=== PATIENT | male | born 1955 | race Two or more races ===

== ENCOUNTER → 2017-05-30 | Outpatient (REF) | payer OTHER | LOC: EDBD → M SFHCPLAZ 15:32 | PROVIDERS: ATTEND Physician Assistant Medical | DX: G62.9 Polyneuropathy, unspecified (principal) ==

== ENCOUNTER → 2017-05-30 | Outpatient (CLI) | payer BC, OTHER ==
--- NOTE | 2017-05-30 19:01 | REP ---
LUMBAR SPINE, FIVE VIEWS: HISTORY: Polyneuropathy. There is no acute fracture or subluxation. The L4-5 and L5-S1 intervertebral discs are decreased in height consistent with disc degeneration. Osteophytes are present throughout the lumbar spine. There is narrowing of the L4-5 and L5-S1 facet joints. A 7 mm calcification is present overlying the left kidney, this may represent nephrolithiasis. IMPRESSION: Degenerative change as described above. Signed by Trevor Hernandez MD 05/31/2017 08:28 A
== END ==
LOC: EDBD 16:39 → M RAD 16:39
PROVIDERS: ATTEND Physician Assistant Medical
DX: G62.9 Polyneuropathy, unspecified (principal); M51.37 Other intervertebral disc degeneration, lumbosacral region; M51.36 Other intervertebral disc degeneration, lumbar region

== ENCOUNTER → 2017-06-06 | Outpatient (REF) | payer OTHER | LOC: M SFHCPLAZ 16:33 | PROVIDERS: ATTEND Family Medicine | DX: Z01.818 Encounter for other preprocedural examination (principal); R35.0 Frequency of micturition; Z53.8 Procedure and treatment not carried out for other reasons ==

== ENCOUNTER → 2017-06-06 | Outpatient (CLI) | payer BC, OTHER ==
[2017-06-06 18:29] LABS: INR 1.03
[2017-06-06 18:34] LABS: ALBUMIN/GLOBULIN RATIO 1.14 (1.00-1.93); ALKALINE PHOSPHATASE 63 U/L (45-117); ALT/SGPT 26 U/L (12-78); ANION GAP 5 MEQ/L (8-16); AST/SGOT 12 U/L (15-37); BILIRUBIN,TOTAL 0.6 MG/DL (0.2-1.0); BLOOD UREA NITROGEN 15 MG/DL (7-18); CALCIUM LEVEL 8.5 MG/DL (8.8-10.2); CARBON DIOXIDE LEVEL 29 MEQ/L (21-32); CHLORIDE LEVEL 108 MEQ/L (98-107); CREATININE FOR GFR 1.21 MG/DL (0.70-1.30); GLOMERULAR FILTRATION RATE > 60.0 (>49); GLUCOSE, FASTING 88 MG/DL (80-110); POTASSIUM SERUM 4.4 MEQ/L (3.5-5.1); SODIUM LEVEL 142 MEQ/L (136-145); TOTAL PROTEIN 7.5 GM/DL (6.4-8.2)
[2017-06-06 18:41] LABS: BASO # 0.1 K/mm3 (0.0-0.2); BASO % 0.9 % (0.0-1.0); EOS # 0.3 K/mm3 (0.0-0.50); EOS % 4.7 % (0.0-3.0); LARGE UNSTAINED CELL # 0.1 K/mm3 (0.0-0.4); LARGE UNSTAINED CELL % 1.3 % (0.0-4.0); LYMPH # 1.5 K/mm3 (1.5-4.5); LYMPH % 20.3 % (24.0-44.0); MEAN CORPUSCULAR HGB CONC 34.5 g/dl (32.0-36.5); MEAN CORPUSCULAR VOLUME 92.8 fl (80.0-96.0); MONO # 0.5 K/mm3 (0.0-0.8); MONO % 7.7 % (0.0-5.0); NEUTROPHILS # 4.4 K/mm3 (1.8-7.7); NEUTROPHILS % 65.1 % (36.0-66.0); PLATELET COUNT, AUTOMATED 182 k/mm3 (150-450); RED CELL DISTRIBUTION WIDTH 12.4 % (11.5-14.5); WHITE BLOOD COUNT 6.8 K/mm3 (4.0-10.0)
== END ==
LOC: M LAB 16:52
PROVIDERS: ATTEND Family Medicine
DX: Z01.818 Encounter for other preprocedural examination (principal); H40.2213 Chronic angle-closure glaucoma, right eye, severe stage; H25.11 Age-related nuclear cataract, right eye; R35.0 Frequency of micturition; Z79.899 Other long term (current) drug therapy

== ENCOUNTER → 2017-07-15 | Outpatient (CLI) | payer BC, OTHER | LOC: M LAB 16:48 | PROVIDERS: ATTEND Physician Assistant Medical | DX: N41.0 Acute prostatitis (principal); Z13.220 Encounter for screening for lipoid disorders | CPT/HCPCS: 36415; 80061; G0103 ==

== ENCOUNTER → 2017-12-02 | Outpatient (CLI) | payer BC, OTHER ==
[2017-12-02 19:00] LABS: ALBUMIN 4.2 GM/DL (3.2-5.2); ALBUMIN/GLOBULIN RATIO 1.27 (1.00-1.93); ALKALINE PHOSPHATASE 73 U/L (45-117); ALT/SGPT 27 U/L (12-78); ANION GAP 5 MEQ/L (8-16); AST/SGOT 15 U/L (7-37); BLOOD UREA NITROGEN 13 MG/DL (7-18); CALCIUM LEVEL 8.4 MG/DL (8.8-10.2); CARBON DIOXIDE LEVEL 31 MEQ/L (21-32); CHLORIDE LEVEL 105 MEQ/L (98-107); CHOLESTEROL LEVEL 245 MG/DL (<200); CHOLESTEROL RISK RATIO 7.424 (<5); CPK CREATINE PHOSPHOKINASE 117 U/L (39-308); CREATININE FOR GFR 1.08 MG/DL (0.70-1.30); GLOMERULAR FILTRATION RATE > 60.0 (>49); GLUCOSE, FASTING 86 MG/DL (70-100); HDL CHOLESTEROL 33 MG/DL (>40); LDL CHOLESTEROL 176.2 MG/DL (<100); NON-HDL-C 212 MG/DL; POTASSIUM SERUM 3.9 MEQ/L (3.5-5.1); PSA SCREENING 1.02 NG/ML (< 4.0); SODIUM LEVEL 141 MEQ/L (136-145); TOTAL PROTEIN 7.5 GM/DL (6.4-8.2); TRIGLYCERIDES LEVEL 179 MG/DL (<150)
== END ==
LOC: M LAB 17:50
DX: L40.9 Psoriasis, unspecified (principal); Z79.899 Other long term (current) drug therapy
CPT/HCPCS: 82550

== ENCOUNTER → 2018-06-02 | Outpatient (REF) | payer OTHER ==
[2018-06-02 17:47] LABS: BASO # 0.1 10^3/uL (0.0-0.2); BASO % 0.7 % (0.0-1.0); EOS # 0.2 10^3/uL (0.0-0.50); EOS % 2.8 % (0.0-3.0); HEMATOCRIT 47.2 % (42.0-52.0); IMMATURE GRANULOCYTE % 0.4 % (0-3.0); LYMPH # 1.5 10^3/uL (1.5-4.5); LYMPH % 22.1 % (24.0-44.0); MEAN CORPUSCULAR HEMOGLOBIN 30.9 pg (27.0-33.0); MEAN CORPUSCULAR HGB CONC 33.9 g/dl (32.0-36.5); MEAN CORPUSCULAR VOLUME 91.3 fl (80.0-96.0); MONO # 0.6 10^3/uL (0.0-0.8); NEUTROPHILS # 4.4 10^3/uL (1.8-7.7); PLATELET COUNT, AUTOMATED 230 10^3/uL (150-450); RED BLOOD COUNT 5.17 10^6/uL (4.30-6.10); RED CELL DISTRIBUTION WIDTH 12.1 % (11.5-14.5); WHITE BLOOD COUNT 6.8 10^3/uL (4.0-10.0)
[2018-06-02 17:49] LABS: ESTIMATED AVERAGE GLUCOSE 123 MG/DL (60-110); HEMOGLOBIN A1c 5.9 %
[2018-06-02 18:33] LABS: ALBUMIN 4.3 GM/DL (3.2-5.2); ALBUMIN/GLOBULIN RATIO 1.19 (1.00-1.93); ALKALINE PHOSPHATASE 80 U/L (45-117); ALT/SGPT 40 U/L (12-78); ANION GAP 10 MEQ/L (8-16); AST/SGOT 16 U/L (7-37); BILIRUBIN,TOTAL 1.3 MG/DL (0.2-1.0); BLOOD UREA NITROGEN 15 MG/DL (7-18); CALCIUM LEVEL 8.6 MG/DL (8.8-10.2); CARBON DIOXIDE LEVEL 25 MEQ/L (21-32); CHLORIDE LEVEL 106 MEQ/L (98-107); CHOLESTEROL LEVEL 237 MG/DL (<200); CHOLESTEROL RISK RATIO 6.405 (<5); CREATININE FOR GFR 1.18 MG/DL (0.70-1.30); GLOMERULAR FILTRATION RATE > 60.0 (>49); GLUCOSE, FASTING 95 MG/DL (70-100); HDL CHOLESTEROL 37 MG/DL (>40); LDL CHOLESTEROL 165.4 MG/DL (<100); NON-HDL-C 200 MG/DL; POTASSIUM SERUM 4.2 MEQ/L (3.5-5.1); PSA SCREENING 1.22 NG/ML (< 4.0); SODIUM LEVEL 141 MEQ/L (136-145); TOTAL PROTEIN 7.9 GM/DL (6.4-8.2); TRIGLYCERIDES LEVEL 173 MG/DL (<150)
== END ==
LOC: M SFHCPLAZ 16:04
DX: E78.2 Mixed hyperlipidemia (principal); B37.9 Candidiasis, unspecified; N40.1 Benign prostatic hyperplasia with lower urinary tract symptoms; E66.3 Overweight

== ENCOUNTER → 2019-03-27 | Outpatient (REF) | payer OTHER ==
[2019-03-27 14:08] LABS: APPEARANCE, URINE CLEAR (CLEAR); BACTERIA, URINE AUTO NEGATIVE (NEGATIVE); BILIRUBIN, URINE AUTO NEGATIVE (NEGATIVE); BLOOD, URINE BLOOD NEGATIVE (NEGATIVE); COLOR, URINE STRAW (YELLOW); GLUCOSE, URINE (UA) AUTO NEGATIVE (NEGATIVE); KETONE, URINE AUTO NEGATIVE (NEGATIVE); LEUKOCYTE ESTERASE, URINE AUTO NEGATIVE (NEGATIVE); NITRITE, URINE AUTO NEGATIVE (NEGATIVE); PROTEIN, URINE AUTO NEGATIVE (NEGATIVE); RBC, URINE AUTO 0 /HPF (0-3); SPECIFIC GRAVITY URINE AUTO 1.002 (1.002-1.035); SQUAMOUS EPITHELIAL CELL UR AU 0 /HPF (0-6); UROBILINOGEN, URINE AUTO 0.2 mg/dL (0.0-2.0); WBC, URINE AUTO 0 /HPF (0-3)
[2019-03-27 15:32] LABS: CHLAMYDIA DNA AMPLIFICATION NEGATIVE (NEGATIVE); GC DNA AMPLIFICATION NEGATIVE (NEGATIVE)
== END ==
LOC: M LAB REF 12:38
PROVIDERS: ATTEND Nurse Practitioner Family
DX: N50.819 Testicular pain, unspecified (principal)

== ENCOUNTER → 2019-06-04 | Outpatient (REF) | payer OTHER | LOC: M SFHCPLAZ 10:29 | PROVIDERS: ATTEND Dermatology | DX: L72.0 Epidermal cyst (principal) ==

== ENCOUNTER → 2019-06-30 | Outpatient (REF) | payer OTHER ==
[2019-06-30 18:18] LABS: APPEARANCE, URINE CLEAR (CLEAR); BACTERIA, URINE AUTO NEGATIVE (NEGATIVE); BILIRUBIN, URINE AUTO NEGATIVE (NEGATIVE); BLOOD, URINE BLOOD NEGATIVE (NEGATIVE); COLOR, URINE YELLOW (YELLOW); GLUCOSE, URINE (UA) AUTO NEGATIVE (NEGATIVE); KETONE, URINE AUTO NEGATIVE (NEGATIVE); LEUKOCYTE ESTERASE, URINE AUTO NEGATIVE (NEGATIVE); MUCUS, URINE SMALL (NEGATIVE); NITRITE, URINE AUTO NEGATIVE (NEGATIVE); PROTEIN, URINE AUTO NEGATIVE (NEGATIVE); RBC, URINE AUTO 3 /HPF (0-3); SPECIFIC GRAVITY URINE AUTO 1.024 (1.002-1.035); SQUAMOUS EPITHELIAL CELL UR AU 0 /HPF (0-6); UROBILINOGEN, URINE AUTO 0.2 mg/dL (0.0-2.0); WBC, URINE AUTO 1 /HPF (0-3)
== END ==
LOC: M SMT 17:08
PROVIDERS: ATTEND Nurse Practitioner Family
DX: R35.0 Frequency of micturition (principal)

== ENCOUNTER → 2019-09-02 | Outpatient (REF) | payer OTHER ==
[2019-09-02 15:27] LABS: RHEUMATOID FACTOR QUANT < 10.0 IU/ML (<15.0)
[2019-09-02 15:36] LABS: TOTAL 25(OH) VITAMIN D 37.4 NG/ML (30.0-100.0); VITAMIN B12 LEVEL 361 PG/ML
[2019-09-02 15:37] LABS: FOLATE 15.2 NG/ML
== END ==
LOC: M LABNEURO 09:13
PROVIDERS: ATTEND Psychiatry & Neurology Neurology
DX: M10.9 Gout, unspecified (principal); G20 Parkinson's disease

== ENCOUNTER 2019-11-11 15:52 | Emergency (ER) | payer BC, OTHER ==
[~2019-11-11] VITALS: Ht 172.7 cm; Wt 85.9 kg
[2019-11-11 15:53] VITALS: BP 136/79
[2019-11-11 17:30] LABS: HEMATOCRIT 47.3 % (42.0-52.0); HEMOGLOBIN 15.9 g/dl (13.5-17.5); MEAN CORPUSCULAR HEMOGLOBIN 31.3 pg (27.0-33.0); MEAN CORPUSCULAR HGB CONC 33.6 g/dl (32.0-36.5); MEAN CORPUSCULAR VOLUME 93.1 fl (80.0-96.0); PLATELET COUNT, AUTOMATED 219 10^3/uL (150-450); RED BLOOD COUNT 5.08 10^6/uL (4.30-6.10); WHITE BLOOD COUNT 7.8 10^3/uL (4.0-10.0)
--- NOTE | 2019-11-11 17:52 | REP ---
Oral ultrasound for right testicular pain: The right testis measures 4.3 x 2.8 x 2.9 cm. Left testis measures 4.1 x 3.0 x 3.1 cm. The testes are normal size. There are no testicular masses or cysts. There are multiple small bilateral epididymal head cysts measuring up to 7 mm on the right and up to 3 mm on the left. There is a 2 mm scrotal wall calcification anteriorly at the mid pole of clinical significance. There is no testicular or epididymal hyperemia with color Doppler assessment. There is vascular flow in both testes. The Doppler resistive index of the parenchymal arteries of the right testis is 0.65 and left testis 0.56. There are dilated venous vessels in the left scrotum compatible with varicocele. No reflux is seen with Valsalva. There are moderate bilateral hydroceles. Impression: Left varicocele. Right scrotal leilani no clinical significance. Bilateral small epididymal head cysts. There are no testicular masses or cysts. There are moderate bilateral hydroceles. There is vascular flow in both testes. Electronically Signed by Jose Redmond MD 11/11/2019 05:44 P
[2019-11-11 18:06] LABS: ALBUMIN 4.3 GM/DL (3.2-5.2); ALT/SGPT 51 U/L (12-78); BILIRUBIN,DIRECT 0.2 MG/DL (0.0-0.2); BILIRUBIN,TOTAL 0.7 MG/DL (0.2-1.0); BLOOD UREA NITROGEN 16 MG/DL (7-18); CALCIUM LEVEL 9.3 MG/DL (8.8-10.2); CARBON DIOXIDE LEVEL 27 MEQ/L (21-32); CHLORIDE LEVEL 106 MEQ/L (98-107); CREATININE FOR GFR 1.22 MG/DL (0.70-1.30); GLOMERULAR FILTRATION RATE > 60.0 (>49); GLUCOSE, FASTING 125 MG/DL (70-100); POTASSIUM SERUM 4.1 MEQ/L (3.5-5.1); SALICYLATE LEVEL < 1.7 MG/DL (5.0-30.0); SODIUM LEVEL 140 MEQ/L (136-145); TOTAL PROTEIN 7.5 GM/DL (6.4-8.2)
[2019-11-11 18:07] LABS: ACETAMINOPHEN LEVEL < 2.0 UG/ML (10.0-30.0); ETHYL ALCOHOL (ETHANOL) < 0.003 % (0.000-0.010)
[2019-11-11 18:17] LABS: AMPHETAMINES LEVEL URINE NEGATIVE (NEGATIVE); BARBITURATES URINE NEGATIVE (NEGATIVE); BENZODIAZEPINES URINE NEGATIVE (NEGATIVE); CANNABINOIDS URINE NEGATIVE (NEGATIVE); COCAINE METABOLITE URINE NEGATIVE (NEGATIVE); METHADONE URINE NEGATIVE (NEGATIVE); OPIATES URINE NEGATIVE (NEGATIVE); PHENCYCLIDINE URINE NEGATIVE (NEGATIVE)
--- NOTE | 2019-11-12 08:12 | ED PDOC ---
Post-Departure Follow-Up dr dozier faxed formal report of scrotal us for fu Matt Barros MD Nov 12, 2019 08:12
== END 2019-11-11 19:26 | disposition home or self-care (01) ==
LOC: M ED 15:52
DX: G20 Parkinson's disease (principal); F43.20 Adjustment disorder, unspecified; G47.00 Insomnia, unspecified; Z88.8 Allergy status to other drugs, medicaments and biological substances; Z91.010 Allergy to peanuts; Z91.040 Latex allergy status
CPT/HCPCS: 36415; 76870; 80048; 80076; 80307; 84443; 85027; 93976; 99284; G0480

== ENCOUNTER 2019-11-19 11:43 | Emergency (ER) | payer BC, OTHER ==
[~2019-11-19] VITALS: Ht 172.7 cm; Wt 84.2 kg
[2019-11-19] MEDS ORDERED: CARB25TA9 PR (11:59)
[2019-11-19] MEDS ORDERED: QUET1TAB7 OR (11:59)
[2019-11-19] MEDS ORDERED: ACETAMINOPHEN 325 MG TAB PO ONE (12:30)
[2019-11-19] MEDS ORDERED: IPRATROPIUM 0.5MG/ALBUTEROL 2.5MG INH SOL UD 3ML (DUONEB)(J7620) NEB ONE (12:30)
[2019-11-19 12:58] LABS: VENOUS O2 SATURATION 98.5 % (60.0-80.0)
[2019-11-19 12:59] LABS: VENOUS HCO3 24.1 MEQ/L (23.0-27.0); VENOUS PARTIAL PRESSURE CO2 37.5 mmHg (38.0-50.0); VENOUS PARTIAL PRESSURE O2 119.2 mmHg (30.0-50.0); VENOUS PH 7.425 UNITS (7.330-7.430); VENOUS STANDARD HCO3 24.5 MEQ/L; VENOUS TOTAL CO2 25.2 MEQ/L (24.0-28.0)
[2019-11-19 13:10] LABS: BASO # 0.1 10^3/uL (0.0-0.2); BASO % 0.8 % (0.0-1.0); EOS # 0.2 10^3/uL (0.0-0.5); EOS % 2.5 % (0.0-3.0); HEMATOCRIT 46.5 % (42.0-52.0); HEMOGLOBIN 15.6 g/dl (13.5-17.5); LYMPH # 1.2 10^3/uL (1.5-5.0); LYMPH % 15.8 % (24.0-44.0); MEAN CORPUSCULAR HEMOGLOBIN 30.6 pg (27.0-33.0); MEAN CORPUSCULAR HGB CONC 33.5 g/dl (32.0-36.5); MEAN CORPUSCULAR VOLUME 91.2 fl (80.0-96.0); MONO # 0.6 10^3/uL (0.0-0.8); MONO % 8.4 % (0.0-5.0); NEUTROPHILS # 5.4 10^3/uL (1.5-8.5); PLATELET COUNT, AUTOMATED 206 10^3/uL (150-450); WHITE BLOOD COUNT 7.5 10^3/uL (4.0-10.0)
[2019-11-19 13:33] LABS: ALBUMIN 4.2 GM/DL (3.2-5.2); ALT/SGPT 15 U/L (12-78); BILIRUBIN,DIRECT 0.3 MG/DL (0.0-0.2); BILIRUBIN,TOTAL 1.1 MG/DL (0.2-1.0); BLOOD UREA NITROGEN 11 MG/DL (7-18); CALCIUM LEVEL 8.9 MG/DL (8.8-10.2); CARBON DIOXIDE LEVEL 27 MEQ/L (21-32); CHLORIDE LEVEL 107 MEQ/L (98-107); CK-MB VALUE MASS 5.6 NG/ML (<3.6); CPK CREATINE PHOSPHOKINASE 395 U/L (39-308); CREATININE FOR GFR 1.04 MG/DL (0.70-1.30); GLOMERULAR FILTRATION RATE > 60.0 (>49); GLUCOSE, FASTING 120 MG/DL (70-100); MB/CK RELATIVE INDEX 1.42 (< OR =4); POTASSIUM SERUM 4.1 MEQ/L (3.5-5.1); SODIUM LEVEL 140 MEQ/L (136-145); TOTAL PROTEIN 7.3 GM/DL (6.4-8.2); TROPONIN I < 0.02 NG/ML (< 0.10)
[2019-11-19 13:45] LABS: INFLUENZA A AMPLIFICATION NEGATIVE (NEGATIVE); INFLUENZA B AMPLIFICATION NEGATIVE (NEGATIVE)
--- NOTE | 2019-11-19 13:45 | REP ---
PA and lateral chest: There are no comparisons. The lung carbajal are clear. The cardiac size is normal. The kristan, mediastinum, and skeletal structures are unremarkable. Impression: Negative PA and lateral chest. Electronically Signed by Jose Redmond MD 11/19/2019 01:36 P
[2019-11-19 14:40] VITALS: BP 124/74
--- NOTE | 2019-11-20 13:18 | ECGEPIP ---
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
== END 2019-11-19 14:42 | disposition home or self-care (01) ==
LOC: M ED 11:43 → EDBD 11:43 → M ED 14:42
DX: F33.9 Major depressive disorder, recurrent, unspecified (principal); I10 Essential (primary) hypertension; G20 Parkinson's disease; Z79.899 Other long term (current) drug therapy; Z91.010 Allergy to peanuts; Z91.040 Latex allergy status; Z88.8 Allergy status to other drugs, medicaments and biological substances

== ENCOUNTER 2019-11-24 02:47 | Emergency (ER) | payer BC, OTHER ==
[~2019-11-24] VITALS: Ht 172.7 cm; Wt 81.8 kg
[~2019-11-24 02:47] MED LIST: CARB25TA9 PR; QUET1TAB7 OR
[2019-11-24 02:55] VITALS: BP 136/86
[2019-11-24 05:24] LABS: BASO # 0.1 10^3/uL (0.0-0.2); BASO % 0.8 % (0.0-1.0); EOS # 0.2 10^3/uL (0.0-0.5); EOS % 2.1 % (0.0-3.0); HEMATOCRIT 46.9 % (42.0-52.0); HEMOGLOBIN 15.6 g/dl (13.5-17.5); LYMPH # 1.5 10^3/uL (1.5-5.0); LYMPH % 19.4 % (24.0-44.0); MEAN CORPUSCULAR HEMOGLOBIN 30.6 pg (27.0-33.0); MEAN CORPUSCULAR HGB CONC 33.3 g/dl (32.0-36.5); MEAN CORPUSCULAR VOLUME 92.1 fl (80.0-96.0); MONO # 0.9 10^3/uL (0.0-0.8); MONO % 11.6 % (0.0-5.0); NEUTROPHILS # 5.1 10^3/uL (1.5-8.5); NEUTROPHILS % 65.7 % (36.0-66.0); PLATELET COUNT, AUTOMATED 204 10^3/uL (150-450); RED BLOOD COUNT 5.09 10^6/uL (4.30-6.10); WHITE BLOOD COUNT 7.8 10^3/uL (4.0-10.0)
[2019-11-24 05:45] LABS: ALBUMIN 4.3 GM/DL (3.2-5.2); ALT/SGPT 51 U/L (12-78); BILIRUBIN,DIRECT 0.3 MG/DL (0.0-0.2); BILIRUBIN,TOTAL 1.2 MG/DL (0.2-1.0); BLOOD UREA NITROGEN 13 MG/DL (7-18); CALCIUM LEVEL 8.7 MG/DL (8.8-10.2); CARBON DIOXIDE LEVEL 26 MEQ/L (21-32); CHLORIDE LEVEL 107 MEQ/L (98-107); CREATININE FOR GFR 1.07 MG/DL (0.70-1.30); GLOMERULAR FILTRATION RATE > 60.0 (>49); GLUCOSE, FASTING 103 MG/DL (70-100); LIPASE 219 U/L (73-393); POTASSIUM SERUM 3.9 MEQ/L (3.5-5.1); SODIUM LEVEL 142 MEQ/L (136-145); TOTAL PROTEIN 7.4 GM/DL (6.4-8.2)
== END 2019-11-24 06:06 | disposition left against medical advice (07) ==
LOC: M ED 02:47
DX: N50.811 Right testicular pain (principal); R10.31 Right lower quadrant pain; E78.5 Hyperlipidemia, unspecified; G20 Parkinson's disease; J30.2 Other seasonal allergic rhinitis; N40.0 Benign prostatic hyperplasia without lower urinary tract symptoms; Z79.899 Other long term (current) drug therapy; Z88.8 Allergy status to other drugs, medicaments and biological substances; Z91.010 Allergy to peanuts; Z91.040 Latex allergy status

== ENCOUNTER 2019-12-28 17:57 | Inpatient (IN) | payer BC, OTHER ==
[~2019-12-28] VITALS: Ht 172.7 cm; Wt 81.8 kg
[~2019-12-28 17:57] MED LIST changes: +CARB25TA9 PO; -CARB25TA9 PR; -QUET1TAB7 OR; +QUET1TAB7 PO
[2019-12-28 18:50] LABS: BASO # 0.1 10^3/uL (0.0-0.2); BASO % 0.9 % (0.0-1.0); EOS # 0.2 10^3/uL (0.0-0.5); EOS % 2.2 % (0.0-3.0); HEMATOCRIT 42.6 % (42.0-52.0); HEMOGLOBIN 14.2 g/dl (13.5-17.5); LYMPH # 1.2 10^3/uL (1.5-5.0); LYMPH % 17.6 % (24.0-44.0); MEAN CORPUSCULAR HEMOGLOBIN 30.7 pg (27.0-33.0); MEAN CORPUSCULAR HGB CONC 33.3 g/dl (32.0-36.5); MEAN CORPUSCULAR VOLUME 92.2 fl (80.0-96.0); MONO # 0.8 10^3/uL (0.0-0.8); MONO % 11.5 % (0.0-5.0); NEUTROPHILS # 4.6 10^3/uL (1.5-8.5); NEUTROPHILS % 67.5 % (36.0-66.0); PLATELET COUNT, AUTOMATED 220 10^3/uL (150-450); RED BLOOD COUNT 4.62 10^6/uL (4.30-6.10); WHITE BLOOD COUNT 6.9 10^3/uL (4.0-10.0)
[2019-12-28 18:56] LABS: AMPHETAMINES LEVEL URINE NEGATIVE (NEGATIVE); BARBITURATES URINE NEGATIVE (NEGATIVE); BENZODIAZEPINES URINE NEGATIVE (NEGATIVE); CANNABINOIDS URINE NEGATIVE (NEGATIVE); COCAINE METABOLITE URINE NEGATIVE (NEGATIVE); METHADONE URINE NEGATIVE (NEGATIVE); OPIATES URINE NEGATIVE (NEGATIVE); PHENCYCLIDINE URINE NEGATIVE (NEGATIVE)
[2019-12-28 19:30] LABS: ACETAMINOPHEN LEVEL < 2.0 UG/ML (10.0-30.0); ALBUMIN 3.8 GM/DL (3.2-5.2); ALT/SGPT 41 U/L (12-78); BILIRUBIN,DIRECT 0.3 MG/DL (0.0-0.2); BILIRUBIN,TOTAL 0.8 MG/DL (0.2-1.0); BLOOD UREA NITROGEN 18 MG/DL (7-18); CALCIUM LEVEL 8.8 MG/DL (8.8-10.2); CARBON DIOXIDE LEVEL 27 MEQ/L (21-32); CHLORIDE LEVEL 111 MEQ/L (98-107); CK-MB VALUE MASS 18.5 NG/ML (<3.6); CPK CREATINE PHOSPHOKINASE 929 U/L (39-308); CREATININE FOR GFR 1.07 MG/DL (0.70-1.30); ETHYL ALCOHOL (ETHANOL) < 0.003 % (0.000-0.010); GLOMERULAR FILTRATION RATE > 60.0 (>49); GLUCOSE, FASTING 116 MG/DL (70-100); MB/CK RELATIVE INDEX 1.99 (< OR =4); POTASSIUM SERUM 4.1 MEQ/L (3.5-5.1); SALICYLATE LEVEL < 1.7 MG/DL (5.0-30.0); SODIUM LEVEL 143 MEQ/L (136-145); TOTAL PROTEIN 6.7 GM/DL (6.4-8.2); TROPONIN I < 0.02 NG/ML (< 0.10)
[2019-12-28] MEDS ORDERED: QUEtiapine FUMARATE 50 MG TAB PO ONE (20:00)
--- NOTE | 2019-12-28 20:44 | ECGEPIP ---
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
[2019-12-28] MEDS ORDERED: diphenhydrAMINE INJ 50MG/ML VIAL (J1200) IM STA (22:21)
[2019-12-28] MEDS ORDERED: chlorproMAZINE INJ 50MG/2ML AMP (J3230) IM STA (22:21)
[2019-12-29] MEDS ORDERED: CARB25TA9 PO (00:12)
--- NOTE | 2019-12-29 00:44 | REPVR ---
PROCEDURE INFORMATION: Exam: CT Head Without Contrast Exam date and time: 12/28/2019 7:57 PM Age: 64 years old Clinical indication: Condition or disease; Other: Parkinsons; Additional info: Ams/psych eval TECHNIQUE: Imaging protocol: Computed tomography of the head without contrast. Axial and coronal reformatted images were created and reviewed. Radiation optimization: All CT scans at this facility use at least one of these dose optimization techniques: automated exposure control; mA and/or kV adjustment per patient size (includes targeted exams where dose is matched to clinical indication); or iterative reconstruction. COMPARISON: No relevant prior studies available. FINDINGS: Brain: No CT evidence of acute intracranial hemorrhage or acute territorial infarction. No significant mass effect or midline shift. Basal cisterns patent. Ventricles: Prominence of the cortical sulci, cisterns and ventricular system, consistent with cerebral and cerebellar volume loss. Bones/joints: No acute osseous abnormality. Sinuses: Minimal ethmoid mucosal thickening. Mastoid air cells: Grossly unremarkable. Soft tissues: Grossly unremarkable. IMPRESSION: 1. No CT evidence of acute intracranial pathology. 2. Additional findings, as above. Electronically signed by: Tom Her On 12/29/2019 00:44:19 AM
[2019-12-29] MEDS ORDERED: ACETAMINOPHEN TAB 650MG DOSE (2X325MG) PO PRN (02:15)
[2019-12-29] MEDS ORDERED: QUEtiapine FUMARATE 25 MG TAB PO PRN (02:15)
[2019-12-29] MEDS ORDERED: MOM 30ML SUSPENSION UDC PO PRN (02:15)
[2019-12-29] MEDS ORDERED: traZODone 50 MG TAB PO PRN (02:15)
[2019-12-29] MEDS ORDERED: MAALOX 30 ML SUSP *UDC PO PRN (02:15)
[2019-12-29 06:11] VITALS: BP 136/83
[2019-12-29] MEDS ORDERED: SINEMET 25-100 MG TAB PO SCH (09:00)
--- NOTE | 2019-12-29 10:46 | MHHPEPDOC ---
[facility] History & Physical History and Physical DATE OF ADMISSION: Dec 29, 2019 at 02:14 New Patient Panda Brito MRN: N/A Date of : N/A Date of Service: 12/29/2019 Chief Complaint "I don't know." History of Present Illness The patient, a 64-year-old man with a reported history of Parkinson's disorder presents to [facility] for altered mental status, during the evaluation it is noted that he is behaving usually and he is brought in for ev aluation. During the evaluation, he was noted to be reporting depression and suicidal thoughts, but had been acting fairly bizarre. When I attempted to meet with the patient, he was fairly bizarre, spoke in a very soft voice and was unable to be understood. He appeared to be fairly psychotic and I was unable to gain any meaningful information out of him during the evaluation. Review Of Systems Unable to obtain due to patient's mental status. Past Psychiatric History Reportedly has a neurologist that prescribed some psychiatric meds. No history of inpatient admissions or suicide attempts. Allergies Please see below. Family Psychiatric History Unknown. Social History Patient reportedly lives alone at this time. He reportedly has a girlfriend that comes to see him from [id number]. Substance Abuse History Unclear at this time. Medical History Has a history of Parkinson's disorder. Mental Status Examination General: Poor hygiene. Speech: Very soft spoken. Thought processes: Tangentia. MSK: Shuffling gait. Thought content: Bizarre. Abstract reasoning, and computation: Impaired. Description of associations: Impaired. Description of abnormal or psychotic thoughts: Admits to some suicidal ideation. Judgment: Impaired. Insight: Impaired. Orientation: Alert and orientated to surrounding. Cognition: Grossly normal Recent and remote memory: Intact Attention span and concentration: Intact Fund of knowledge: Adequate Mood: "I have to tell the truth." Affect: Flat and bizarre. Diagnoses Unspecified psychotic disorder. Parkinson's disorder. Assessment and Plan Unspecified psychotic disorder: Changed Seroquel to 75 mg scheduled rather than PRN, will likely further evaluate to determine a Parkinson related psychosis. Parkinson's disorder: We'll continue carbidopa/levodopa, however could be causing psychosis. We'll consider having neurology involved. Disposition Patient will need a further inpatient admission due to a severely impairing psychosis. Problem List 1. Altered thoughts. 2. Risk for suicide. Initial Treatment Plan 1. Patient was admitted on a 9.39 legal status. 2. Complete history was obtained. 3. With patients permission, family will be contacted and database will be expanded. 4. Patients medication regimen will be reviewed and changed accordingly. 5. Patient will be provided with protected environment. 6. Patient will be treated with individual, group, and milieu therapies. 7. Patient will receive supportive psych-education. 8. Discharge planning will commence immediately. 9. Outpatient follow-up treatment will be strongly recommended. 10. The initial treatment plan will focus initially on: Estimated Length Of Stay 5 days. Time Spent 70 minutes with greater than 50% of time spent on counseling/coordination of care. Saturday Vital Signs Vital Signs Date Time Temp Pulse Resp B/P (MAP) Pulse Ox O2 Delivery O2 Flow Rate FiO2 12/29/19 06:11 98.4 75 14 136/83 (100) 99 Room Air Laboratory Data 24H Labs Laboratory Tests 2 12/28/19 18:24: Urine Color YELLOW, Urine Appearance CLEAR, Urine pH 5.0, Urine Specific Gall[place] 1.025, Urine Protein NEGATIVE, Urine Glucose (UA) NEGATIVE, Urine Ketones 1+H, Urine Blood NEGATIVE, Urine Nitrite NEGATIVE, Urine Bilirubin NEGATIVE, Urine Urobilinogen 4.0H, Urine Leukocyte Esterase NEGATIVE, Urine WBC (Auto) 2, Urine RBC (Auto) 5H, Urine Hyaline Casts (Auto) 0, Urine Bacteria (Auto) NEGATIVE, Urine Squamous Epithelial Cells 0, Urine Calcium Oxalate Cryst (Auto) SMALL, Urine Mucus (Auto) SMALL, Urine Sperm (Auto) , Urine Opiates Screen NEGATIVE, Urine Methadone Screen NEGATIVE, Urine Barbiturates Screen NEGATIVE, Urine Phencyclidine Screen NEGATIVE, Urine Amphetamines Screen NEGATIVE, Urine Benzodiazepines Screen NEGATIVE, Urine Cocaine Metabolite Screen NEGATIVE, Urine Cannabinoids Screen NEGATIVE 12/28/19 18:36: Immature Granulocyte % (Auto) 0.3, Neutrophils (%) (Auto) 67.5H, Lymphocytes (%) (Auto) 17.6L, Monocytes (%) (Auto) 11.5H, Eosinophils (%) (Auto) 2.2, Basophils (%) (Auto) 0.9, Neutrophils # (Auto) 4.6, Lymphocytes # (Auto) 1.2L, Monocytes # (Auto) 0.8, Eosinophils # (Auto) 0.2, Basophils # (Auto) 0.1, Nucleated Red Blood Cells % (auto) 0.0, Anion Gap 5L, Glomerular Filtration Rate > 60.0, Calcium Level 8.8, Total Bilirubin 0.8, Direct Bilirubin 0.3H, Aspartate Amino Transf (AST/SGOT) 61H, Alanine Aminotransferase (ALT/SGPT) 41, Alkaline Phosphatase 90, Ammonia < 10, Total Creatine Kinase 929H, Creatine Kinase MB 18.5H, Creatine Kinase MB Relative Index 1.99, Troponin I < 0.02, Total Protein 6.7, Albumin 3.8, Albumin/Globulin Ratio 1.31, Thyroid Stimulating Hormone (TSH) 1.780, Salicylates Level < 1.7L, Acetaminophen Level < 2.0L, Ethyl Alcohol Level < 0.003 CBC/BMP Laboratory Tests 12/28/19 18:36 Medications Scheduled Carbidopa/Levodopa (Carbidopa-Levodopa 25-100 Tab) 1 Each Tablet, 1 TAB PO QID, (Reported) 0800, 1100, 1500, 1900 Scheduled PRN Quetiapine Fumarate (Quetiapine Fumarate) 25 Mg Tablet, 75 MG PO QHS PRN for SLEEP, (Reported) Allergies Coded Allergies: latex (Verified Allergy, Intermediate, swelling, 11/19/19) peanut (Verified Allergy, Intermediate, allergy testing, 11/19/19) hydrocortisone (Verified Adverse Reaction, Mild, redness, 11/19/19) JOEL ALBERTO DO Dec 29, 2019 10:45
[2019-12-29] MEDS: SINEMET 25-100 MG TAB PO SCH ×3 (12:34→21:00)
--- NOTE | 2019-12-29 16:34 | HPEPDOC ---
General Date of Admission Dec 29, 2019 at 02:14 Date of Service: Dec 29, 2019 Chief Complaint The patient is a 64-year-old male admitted with a reason for visit of Unspecified Psychotic Disorder. Source: RN/, EMS notes reviewed Exam Limitations: Clinical conditions (possible dementia, unwilling to cooperate) Timing/Duration: Unsure Associated Symptoms: Unobtainable History of Present Illness Patient is a 64-year-old male who was admitted from [facility] ED to inpatient mental health with a diagnosis of a psychotic disorder. The exam is extremely limited as patient does not want to participate this morning, he seems a little bit fearful. Patient has a past medical history which includes Parkinson disease, reportedly blindness in the left eye. After exam today. I'm wondering if there is some dementia going on secondary to his Parkinson disease. Patient reported some right lower quadrant abdominal pain, he declined to be examined. He also reported some low back pain, I was not able to get any details of the pain from the patient. I have asked him to let nursing know if he would like me to examine him and investigate the source of his pain later. Home Medications Scheduled Carbidopa/Levodopa (Carbidopa-Levodopa 25-100 Tab) 1 Each Tablet, 1 TAB PO QID, (Reported) 0800, 1100, 1500, 1900 Scheduled PRN Quetiapine Fumarate (Quetiapine Fumarate) 25 Mg Tablet, 75 MG PO QHS PRN for SLEEP, (Reported) Allergies Coded Allergies: latex (Verified Allergy, Intermediate, swelling, 11/19/19) peanut (Verified Allergy, Intermediate, allergy testing, 11/19/19) hydrocortisone (Verified Adverse Reaction, Mild, redness, 11/19/19) Past Medical History Medical History Below is obtained from the medical record: Parkinson disease. Blindness in the left eye, secondary to glaucoma (per nursing) History of Hepatitis C. Polyneuropathy. Mixed hyperlipidemia. Gout Surgical History Unobtainable Family History Unobtainable Social History Unobtainable A-FIB/CHADSVASC A-FIB History Current/History of A-Fib/PAF?: No Current PO Anticoag Therapy: No Review of Systems Gastrointestinal: Reports: Abdominal Pain (please see HPI) Musculoskeletal: Reports: Back Pain Psych: Reports: Mood Normal Other systems Very limited due to patient condition Physical Examination General Exam: Positive: No Acute Distress, Other (physical exam is extremely limited due to patient cooperation) Eye Exam: Positive: Conjunctiva & lids normal ENT Exam: Positive: Atraumatic Neck Exam: Positive: Supple; Negative: thyromegaly Chest Exam: Positive: Clear to auscultation, Normal air movement Heart Exam: Positive: Rate Normal, Normal S1, Normal S2; Negative: Gallops, Murmurs, Rubs Telemetry: Positive: No significant arrhythmia Abdomen Exam: Positive: Other (declined exam) Extremity Exam: Negative: Clubbing, Cyanosis, Edema Skin Exam: Positive: Nl turgor and temperature Neuro Exam: Positive: Normal Gait (shuffling gait, poor balance); Negative: Normal Speech (garbled speech) Psych Exam: Positive: Anxiety Vital Signs Vital Signs Date Time Temp Pulse Resp B/P (MAP) Pulse Ox O2 Delivery O2 Flow Rate FiO2 12/29/19 06:11 98.4 75 14 136/83 (100) 99 Room Air Laboratory Data Labs 24H Laboratory Tests 2 12/28/19 18:24: Urine Color YELLOW, Urine Appearance CLEAR, Urine pH 5.0, Urine Specific [place] 1.025, Urine Protein NEGATIVE, Urine Glucose (UA) NEGATIVE, Urine Ketones 1+H, Urine Blood NEGATIVE, Urine Nitrite NEGATIVE, Urine Bilirubin NEGATIVE, Urine Urobilinogen 4.0H, Urine Leukocyte Esterase NEGATIVE, Urine WBC (Auto) 2, Urine RBC (Auto) 5H, Urine Hyaline Casts (Auto) 0, Urine Bacteria (Auto) NEGATIVE, Urine Squamous Epithelial Cells 0, Urine Calcium Oxalate Cryst (Auto) SMALL, Urine Mucus (Auto) SMALL, Urine Sperm (Auto) , Urine Opiates Screen NEGATIVE, Urine Methadone Screen NEGATIVE, Urine Barbiturates Screen NEGATIVE, Urine Phencyclidine Screen NEGATIVE, Urine Amphetamines Screen NEGATIVE, Urine Ezequiel odiazepines Screen NEGATIVE, Urine Cocaine Metabolite Screen NEGATIVE, Urine Cannabinoids Screen NEGATIVE 12/28/19 18:36: Immature Granulocyte % (Auto) 0.3, Neutrophils (%) (Auto) 67.5H, Lymphocytes (%) (Auto) 17.6L, Monocytes (%) (Auto) 11.5H, Eosinophils (%) (Auto) 2.2, Basophils (%) (Auto) 0.9, Neutrophils # (Auto) 4.6, Lymphocytes # (Auto) 1.2L, Monocytes # (Auto) 0.8, Eosinophils # (Auto) 0.2, Basophils # (Auto) 0.1, Nucleated Red Blood Cells % (auto) 0.0, Anion Gap 5L, Glomerular Filtration Rate > 60.0, Calcium Level 8.8, Total Bilirubin 0.8, Direct Bilirubin 0.3H, Aspartate Amino Transf (AST/SGOT) 61H, Alanine Aminotransferase (ALT/SGPT) 41, Alkaline Phosphatase 90, Ammonia < 10, Total Creatine Kinase 929H, Creatine Kinase MB 18.5H, Creatine Kinase MB Relative Index 1.99, Troponin I < 0.02, Total Protein 6.7, Albumin 3.8, Albumin/Globulin Ratio 1.31, Thyroid Stimulating Hormone (TSH) 1.780, Salicylates Level < 1.7L, Acetaminophen Level < 2.0L, Ethyl Alcohol Level < 0.003 CBC/BMP Laboratory Tests 12/28/19 18:36 Assessment/Plan Patient is a 64-year-old male who was admitted from [facility] ED to inpatient mental health with a diagnosis of a psychotic disorder. The exam is extremely limited as patient does not want to participate this morning, he seems a little bit fearful. Patient has a past medical history which includes Parkinson disease, reportedly blindness in the left eye. After exam today. I'm wondering if there is some dementia going on secondary to his Parkinson disease. Patient reported some right lower quadrant abdominal pain, he declined to be examined. He also reported some low back pain, I was not able to get any details of the pain from the patient. I have asked him to let nursing know if he would like me to examine him and investigate the source of his pain later. 10. Has a past medical history which includes Parkinson disease, blindness in the left eye secondary to glaucoma, an unspecified psychotic disorder. #1. Unspecified psychotic disorder. Possibly complicated by dementia secondary to Parkinson disease. Continued management per psychiatry #2. Elevated CK/CKMB - RBCs in the urine Unknown etiology. When he was in the hospital in October. Patient also had elevated CK/CKMB Repeat CK/CK-MB, CBC, CMP, UA Try to reassess the patient again in the morning if he will allow an exam ination Thank you for consulting with us about the care of your patient. We will continue to follow him with you. Plan / VTE VTE Prophylaxis Ordered?: CHRISTOPHER Morris PA-C Dec 29, 2019 16:34
[2019-12-29 17:10] LABS: HEMATOCRIT 40.5 % (42.0-52.0); HEMOGLOBIN 13.7 g/dl (13.5-17.5); MEAN CORPUSCULAR HGB CONC 33.8 g/dl (32.0-36.5); MEAN CORPUSCULAR VOLUME 91.6 fl (80.0-96.0); PLATELET COUNT, AUTOMATED 212 10^3/uL (150-450); RED BLOOD COUNT 4.42 10^6/uL (4.30-6.10); WHITE BLOOD COUNT 5.8 10^3/uL (4.0-10.0)
[2019-12-29 18:05] VITALS: BP 90/56
[2019-12-29 18:06] LABS: ALBUMIN 3.6 GM/DL (3.2-5.2); ALT/SGPT 27 U/L (12-78); BILIRUBIN,TOTAL 0.9 MG/DL (0.2-1.0); BLOOD UREA NITROGEN 16 MG/DL (7-18); CALCIUM LEVEL 8.8 MG/DL (8.8-10.2); CARBON DIOXIDE LEVEL 25 MEQ/L (21-32); CHLORIDE LEVEL 109 MEQ/L (98-107); CK-MB VALUE MASS 13.6 NG/ML (<3.6); CPK CREATINE PHOSPHOKINASE 1107 U/L (39-308); CREATININE FOR GFR 1.11 MG/DL (0.70-1.30); GLOMERULAR FILTRATION RATE > 60.0 (>49); GLUCOSE, FASTING 109 MG/DL (70-100); MB/CK RELATIVE INDEX 1.23 (< OR =4); POTASSIUM SERUM 4.1 MEQ/L (3.5-5.1); SODIUM LEVEL 143 MEQ/L (136-145); TOTAL PROTEIN 6.5 GM/DL (6.4-8.2)
[2019-12-29] MEDS: QUEtiapine FUMARATE 25 MG TAB PO SCH (21:45)
[2019-12-30 06:44] VITALS: BP 116/77
[2019-12-30] MEDS: SINEMET 25-100 MG TAB PO SCH ×4 (08:45→21:00)
[2019-12-30 09:15] LABS: BASO # 0.1 10^3/uL (0.0-0.2); BASO % 0.9 % (0.0-1.0); EOS # 0.1 10^3/uL (0.0-0.5); EOS % 2.4 % (0.0-3.0); LYMPH # 1.1 10^3/uL (1.5-5.0); LYMPH % 19.2 % (24.0-44.0); MONO # 0.6 10^3/uL (0.0-0.8); MONO % 10.8 % (0.0-5.0); NEUTROPHILS # 3.9 10^3/uL (1.5-8.5); NEUTROPHILS % 66.4 % (36.0-66.0)
--- NOTE | 2019-12-30 10:45 | MHIPNPDOC ---
[facility] Progress Note Progress Note Inpatient Progress Note Panda Brito MRN: N/A Date of : N/A Date of Service: 12/30/2019 History of Present Illness The patient, a 64-year-old man with a reported history of Parkinson's disorder presents to [facility] for altered mental status, during the evaluation it is noted that he is behaving usually and he is brought in for evaluation. During the evaluation, he was noted to be reporting depression and suicidal thoughts, but had been acting fairly bizarre. When I attempted to meet with the patient, he was fairly bizarre, spoke in a very soft voice and was unable to be understood. He appeared to be fairly psychotic and I was unable to gain any meaningful information out of him during the evaluation. Interval History The patient is attempted to be met with today. He is still fairly bizarre and speaks in a very soft tone, so much so that he is difficult to understand. Staff report that the patient is still fairly paranoid, he had been put on a one-to-one sitter due to concerns about his ambulation, however, it seemed to make him more paranoid and bizarre. Staff report no major behavioral problems overnight, but the patient is generally isolative to his room and does not attend groups. Review Of Systems Unable to obtain due to mental status. Psychotherapy None on this visit. Vital Signs Reviewed. Mental Status Examination General: Poor hygiene. Speech: Very soft spoken. Thought processes: Tangentia. MSK: Shuffling gait. Thought content: Bizarre. Abstract reasoning, and computation: Impaired. Description of associations: Impaired. Description of abnormal or psychotic thoughts: Denies any suicidal thoughts today. Judgment: Impaired. Insight: Impaired. Orientation: Alert and orientated to surrounding. Cognition: Grossly normal Recent and remote memory: Intact Attention span and concentration: Intact Fund of knowledge: Adequate Mood: "Hello." Affect: Flat and bizarre. Diagnoses Unspecified psychotic disorder. Parkinson's disorder. Assessment and Plan Unspecified psychotic disorder: Add 25 mg of Seroquel in the morning and 75 mg at night. Parkinson's disorder: We'll continue carbidopa/levodopa, however could be causing psychosis. We'll consider having neurology involved. Disposition Patient will need a further inpatient admission to treat his severely impairing psychosis. Time Spent 15 minutes Saturday Vital Signs Vital Signs Date Time Temp Pulse Resp B/P (MAP) Pulse Ox O2 Delivery O2 Flow Rate FiO2 12/30/19 06:44 98.2 84 12 116/77 (90) 12/29/19 06:11 99 Room Air Laboratory Data 24H Labs Laboratory Tests 2 12/29/19 16:53: Immature Granulocyte % (Auto) 0.3, Neutrophils (%) (Auto) 66.4H, Lymphocytes (%) (Auto) 19.2L, Monocytes (%) (Auto) 10.8H, Eosinophils (%) (Auto) 2.4, Basophils (%) (Auto) 0.9, Immature Granulocyte # (Auto) 0.0, Neutrophils # (Auto) 3.9, Lymphocytes # (Auto) 1.1L, Monocytes # (Auto) 0.6, Eosinophils # (Auto) 0.1, Basophils # (Auto) 0.1, Nucleated Red Blood Cells % (auto) 0.0, Anion Gap 9, Glomerular Filtration Rate > 60.0, Calcium Level 8.8, Total Bilirubin 0.9, Aspartate Amino Transf (AST/SGOT) 61H, Alanine Aminotransferase (ALT/SGPT) 27, Alkaline Phosphatase 85, Total Creatine Kinase 1107H, Creatine Kinase MB 13.6H, Creatine Kinase MB Relative Index 1.23, Total Protein 6.5, Albumin 3.6, Albumin/Globulin Ratio 1.24 CBC/BMP Laboratory Tests 12/29/19 16:53 Current Medications Current Medications Medications (Trade) Dose Ordered Sig/[place] Route PRN Reason Start Time Stop Time Status Last Admin Dose Admin Acetaminophen (Tylenol Tab) 650 mg Q6HP PRN PO HEADACHE or DISCOMFORT 12/29/19 02:15 Al Hydrox/Mg Hydrox/Simethicone (Mylanta) 30 ml Q4HP PRN PO HEARTBURN/INDIGESTION 12/29/19 02:15 Artificial Tears (Akwa Tears) 2 drop Q6HP PRN OU DRY EYES 12/29/19 22:00 Carbidopa/Levodopa (Sinemet 25/100) 1 tab QID PO 12/29/19 09:00 12/29/19 11:00 DC Carbidopa/Levodopa (Sinemet 25/100) 1 tab QID PO 12/29/19 13:00 12/30/19 08:45 Chlorpromazine HCl (Thorazine) 25 mg STAT STAT IM 12/28/19 22:21 12/28/19 22:23 DC 12/28/19 23:01 Diphenhydramine HCl (Benadryl) 25 mg STAT STAT IM 12/28/19 22:21 12/28/19 22:23 DC 12/28/19 23:01 Home Med (Med Rec Complete!) ASDIRECTED XX 12/29/19 00:15 12/29/19 00:14 DC Magnesium Hydroxide (Milk Of Magnesia) 30 ml DAILYPRN PRN PO CONSTIPATION 12/29/19 02:15 Quetiapine Fumarate (SEROquel) 75 mg QHS PO 12/29/19 21:45 Quetiapine Fumarate (SEROquel) 75 mg QHS PRN PO SLEEP 12/29/19 02:15 12/29/19 21:33 DC Trazodone HCl (Desyrel) 50 mg QHSP PRN PO INSOMNIA 12/29/19 02:15 Allergies Coded Allergies: latex (Verified Allergy, Intermediate, swelling, 11/19/19) peanut (Verified Allergy, Intermediate, allergy testing, 11/19/19) hydrocortisone (Verified Adverse Reaction, Mild, redness, 11/19/19) JOEL ALBERTO DO Dec 30, 2019 10:45
[2019-12-30 10:50] LABS: PLATELET ESTIMATE NORMAL (NORMAL)
[2019-12-30] MEDS: QUEtiapine FUMARATE 25 MG TAB PO SCH ×2 (13:14→21:00)
[2019-12-30 17:56] VITALS: BP 121/77
[2019-12-31 06:24] VITALS: BP 131/78
[2019-12-31] MEDS: QUEtiapine FUMARATE 25 MG TAB PO SCH (08:15)
[2019-12-31] MEDS: SINEMET 25-100 MG TAB PO SCH ×4 (08:15→21:00)
[2019-12-31] MEDS ORDERED: LORazepam 0.5 MG TAB PO ONE (12:00)
[2019-12-31] MEDS: POLYVINYL ALCOHOL OPHTH SOLN 15 ML(LIQUITEARS) OU PRN (12:14)
--- NOTE | 2019-12-31 12:21 | MHIPNPDOC ---
[facility] Progress Note Progress Note Inpatient Progress Note Panda Brito MRN: N/A Date of : N/A Date of Service: 12/31/2019 History of Present Illness The patient, a 64-year-old man with a reported history of Parkinson's disorder presents to [facility] for altered mental status, during the evaluation it is noted that he is behaving usually and he is brought in for evaluation. During the evaluation, he was noted to be reporting depression and suicidal thoughts, but had been acting fairly bizarre. When I attempted to meet with the patient, he was fairly bizarre, spoke in a yrn y soft voice and was unable to be understood. He appeared to be fairly psychotic and I was unable to gain any meaningful information out of him during the evaluation. Interval History The patient is met with today. He still remains in his room, isolative and attends no groups. He is fairly bizarre and collateral information from his girlfriend reveals that he is fairly psychotic at home. The patient speaks in such soft tones, it is difficult to understand him. He is still tangential and difficult to follow. In interviews attempted, however, little if any meaningful information is extracted. He reports that he feel sedated on the Seroquel. Staff report him to be still bIzarre and difficult to attend to, he reports that he will not use the bathroom because the sink is not next to the toilet. Review Of Systems Unable to determine due to mental status. Psychotherapy None on this visit. Vital Signs Reviewed. Mental Status Examination General: Poor hygiene. Speech: Very soft spoken. Thought processes: Tangentia. MSK: Shuffling gait. Thought content: Bizarre. Abstract reasoning, and computation: Impaired. Description of associations: Impaired. Description of abnormal or psychotic thoughts: Denies any suicidal thoughts today. Judgment: Impaired. Insight: Impaired. Orientation: Alert and orientated to surrounding. Cognition: Abnormal.l Recent and remote memory: Impaired. Attention span and concentration: Impaired. Fund of knowledge: Adequate Mood: "Hello." Affect: Flat and bizarre. Diagnoses Unspecified psychotic disorder. Parkinson's disorder. Assessment and Plan Unspecified psychotic disorder: Discontinue Seroquel, start Abilify 2 mg nightl y. Parkinson's disorder: Continue carbidopa/levodopa, will hold off on neurology for now to see if potentially the Abilify might help. Disposition Patient will need a further inpatient admission due to his severely impairing psychosis, he is gravely disabled and unable to care for himself. Time Spent 15 minutes. Vital Signs Vital Signs Date Time Temp Pulse Resp B/P (MAP) Pulse Ox O2 Delivery O2 Flow Rate FiO2 12/31/19 06:24 98.1 83 18 131/78 (95) 12/29/19 06:11 99 Room Air Laboratory Data 24H Labs Laboratory Tests 2 12/30/19 16:55: Urine Color YELLOW, Urine Appearance CLEAR, Urine pH 6.0, Urine Specific Bradford 1.024, Urine Protein NEGATIVE, Urine Glucose (UA) NEGATIVE, Urine Ketones 1+H, Urine Blood NEGATIVE, Urine Nitrite NEGATIVE, Urine Bilirubin NEGATIVE, Urine Urobilinogen 4.0H, Urine Leukocyte Esterase NEGATIVE, Urine WBC (Auto) 3, Urine RBC (Auto) 2, Urine Hyaline Casts (Auto) 0, Urine Bacteria (Auto) NEGATIVE, Urine Squamous Epithelial Cells 0, Urine Calcium Oxalate Cryst (Auto) SMALL, Urine Mucus (Auto) SMALL, Urine Sperm (Auto) Current Medications Current Medications Medications (Trade) Dose Ordered Sig/Navneet Route PRN Reason Start Time Stop Time Status Last Admin Dose Admin Acetaminophen (Tylenol Tab) 650 mg Q6HP PRN PO HEADACHE or DISCOMFORT 12/29/19 02:15 Al Hydrox/Mg Hydrox/Simethicone (Mylanta) 30 ml Q4HP PRN PO HEARTBURN/INDIGESTION 12/29/19 02:15 Aripiprazole (AbiLIFY) 2 mg QHS PO 12/31/19 21:00 Artificial Tears (Akwa Tears) 2 drop Q6HP PRN OU DRY EYES 12/29/19 22:00 Carbidopa/Levodopa (Sinemet 25/100) 1 tab QID PO 12/29/19 09:00 12/29/19 11:00 DC Carbidopa/Levodopa (Sinemet 25/100) 1 tab QID PO 12/29/19 13:00 12/31/19 08:15 Chlorpromazine HCl (Thorazine) 25 mg STAT STAT IM 12/28/19 22:21 12/28/19 22:23 DC 12/28/19 23:01 Diphenhydramine HCl (Benadryl) 25 mg STAT STAT IM 12/28/19 22:21 12/28/19 22:23 DC 12/28/19 23:01 Home Med (Med Rec Complete!) ASDIRECTED XX 12/29/19 00:15 12/29/19 00:14 DC Magnesium Hydroxide (Milk Of Magnesia) 30 ml DAILYPRN PRN PO CONSTIPATION 12/29/19 02:15 Quetiapine Fumarate (SEROquel) 25 mg DAILY PO 12/30/19 09:00 12/31/19 11:59 DC 12/31/19 08:15 Quetiapine Fumarate (SEROquel) 75 mg QHS PO 12/29/19 21:45 12/31/19 11:59 DC Quetiapine Fumarate (SEROquel) 75 mg QHS PRN PO SLEEP 12/29/19 02:15 12/29/19 21:33 DC Trazodone HCl (Desyrel) 50 mg QHSP PRN PO INSOMNIA 12/29/19 02:15 Allergies Coded Allergies: latex (Verified Allergy, Intermediate, swelling, 11/19/19) peanut (Verified Allergy, Intermediate, allergy testing, 11/19/19) hydrocortisone (Verified Adverse Reaction, Mild, redness, 11/19/19) JOEL ALBERTO DO Dec 31, 2019 12:21
[2019-12-31] MEDS: ARIPiprazole 2 MG TAB PO SCH (21:00)
[2020-01-01 06:40] VITALS: BP 135/76
[2020-01-01] MEDS: SINEMET 25-100 MG TAB PO SCH ×5 (10:04→21:00)
--- NOTE | 2020-01-01 12:42 | MHIPNPDOC ---
[facility] Progress Note Progress Note Inpatient Progress Note Panda Brito MRN: N/A Date of : N/A Date of Service: 01/01/2020 History of Present Illness The patient, a 64-year-old man with a reported history of Parkinson's disorder presents to [facility] for altered mental status, during the evaluation it is noted that he is behaving usually and he is brought in for evaluation. During the evaluation, he was noted to be reporting depression and suicidal thoughts, but had been acting fairly bizarre. When I attempted to meet with the patient, he was fairly bizarre, spoke in a very soft voice and was unable to be understood. He appeared to be fairly psychotic and I was unable to gain any meaningful information out of him during the evaluation. Interval History The patient was attempted to be met with for follow up today. He is still fairly bizarre, laying in bed and only speaking a few words. He has not let his room for the majority of the day, attends no groups and generally per staff report has engaged very little in treatment. He is still unable to provide any meaningful history today. Review Of Systems Unable to obtain due to mental status. Psychotherapy None on this visit. Vital Signs Reviewed. Mental Status Examination General: Poor hygiene. Speech: Very soft spoken. Thought processes: Tangentia. MSK: Shuffling gait. Thought content: Bizarre. Abstract reasoning, and computation: Impaired. Description of associations: Impaired. Description of abnormal or psychotic thoughts: Denies any suicidal thoughts today. Judgment: Impaired. Insight: Impaired. Orientation: Alert and orientated to surrounding. Cognition: Abnormal.l Recent and remote memory: Impaired. Attention span and concentration: Impaired. Fund of knowledge: Adequate Mood: "Hello." Affect: Flat and bizarre. Diagnoses Unspecified psychotic disorder. Parkinson's disorder. Assessment and Plan Unspecified psychotic disorder: Continue Abilify 2 mg nightly. Parkinson's disorder: Continue carbidopa/levodopa, will hold off on neurology for now to see if potentially the Abilify might help. Disposition Patient will need a further inpatient admission due to his severely impairing psychosis, he is gravely disabled and unable to care for himself. Time Spent 15 minutes. Saturday Vital Signs Vital Signs Date Time Temp Pulse Resp B/P (MAP) Pulse Ox O2 Delivery O2 Flow Rate FiO2 01/01/20 06:40 98.3 85 14 135/76 (95) Room Air 12/29/19 06:11 99 Current Medications Current Medications Medications (Trade) Dose Ordered Sig/Navneet Route PRN Reason Start Time Stop Time Status Last Admin Dose Admin Acetaminophen (Tylenol Tab) 650 mg Q6HP PRN PO HEADACHE or DISCOMFORT 12/29/19 02:15 Al Hydrox/Mg Hydrox/Simethicone (Mylanta) 30 ml Q4HP PRN PO HEARTBURN/INDIGESTION 12/29/19 02:15 Aripiprazole (AbiLIFY) 2 mg QHS PO 12/31/19 21:00 Artificial Tears (Akwa Tears) 2 drop Q6HP PRN OU DRY EYES 12/29/19 22:00 12/31/19 12:14 Carbidopa/Levodopa (Sinemet 25/100) 1 tab QID PO 12/29/19 09:00 12/29/19 11:00 DC Carbidopa/Levodopa (Sinemet 25/100) 1 tab QID PO 12/29/19 13:00 01/01/20 10:04 Chlorpromazine HCl (Thorazine) 25 mg STAT STAT IM 12/28/19 22:21 12/28/19 22:23 DC 12/28/19 23:01 Diphenhydramine HCl (Benadryl) 25 mg STAT STAT IM 12/28/19 22:21 12/28/19 22:23 DC 12/28/19 23:01 Home Med (Med Rec Complete!) ASDIRECTED XX 12/29/19 00:15 12/29/19 00:14 DC Magnesium Hydroxide (Milk Of Magnesia) 30 ml DAILYPRN PRN PO CONSTIPATION 12/29/19 02:15 Quetiapine Fumarate (SEROquel) 25 mg DAILY PO 12/30/19 09:00 12/31/19 11:59 DC 12/31/19 08:15 Quetiapine Fumarate (SEROquel) 75 mg QHS PO 12/29/19 21:45 12/31/19 11:59 DC Quetiapine Fumarate (SEROquel) 75 mg QHS PRN PO SLEEP 12/29/19 02:15 12/29/19 21:33 DC Trazodone HCl (Desyrel) 50 mg QHSP PRN PO INSOMNIA 12/29/19 02:15 Allergies Coded Allergies: latex (Verified Allergy, Intermediate, swelling, 11/19/19) peanut (Verified Allergy, Intermediate, allergy testing, 11/19/19) hydrocortisone (Verified Adverse Reaction, Mild, redness, 11/19/19) JOEL ALBERTO DO Jan 01, 2020 12:42
[2020-01-01 16:00] VITALS: BP 104/72
--- NOTE | 2020-01-01 20:02 | IPNPDOC ---
Text Note Date of Service The patient was seen on 12/30/19. NOTE Elevated CK/CKMB Repeat CK/CK-MB, CBC, CMP, UA -Repeat CK/CK-MB stable, no blood in the urine -Patient was showering at the time I went to see him; per his nurse, there are no signs of bruises or swelling on his body. No further complaints of back/abdominal pain. Medicine will sign off at this time. Please re-consult as needed. VS,Fishbone, I+O VS, Fishbone, I+O Vital Signs Date Time Temp Pulse Resp B/P (MAP) Pulse Ox O2 Delivery O2 Flow Rate FiO2 01/01/20 16:00 97.9 76 12 104/72 (83) 01/01/20 06:40 Room Air 12/29/19 06:11 99 CHRISTOPHER ASHFORD PA-C Jan 01, 2020 20:02
[2020-01-01] MEDS: ARIPiprazole 2 MG TAB PO SCH (21:00)
[2020-01-02 06:52] VITALS: BP 117/77
[2020-01-02] MEDS: SINEMET 25-100 MG TAB PO SCH ×4 (08:56→20:38)
[2020-01-02 17:50] VITALS: BP 93/61
[2020-01-02] MEDS: ARIPiprazole 2 MG TAB PO SCH (20:39)
[2020-01-03 06:22] VITALS: BP 116/64
[2020-01-03] MEDS: SINEMET 25-100 MG TAB PO SCH ×5 (09:00→20:41)
[2020-01-03 15:00] VITALS: BP 110/64
[2020-01-03] MEDS: ARIPiprazole 2 MG TAB PO SCH (20:41)
[2020-01-04 06:11] VITALS: BP 103/77
[2020-01-04] MEDS ORDERED: BENZTROPINE 0.5 MG TAB PO SCH (09:30)
--- NOTE | 2020-01-04 09:32 | MHIPNPDOC ---
[facility] Progress Note Progress Note Inpatient Progress Note Panda Brito MRN: N/A Date of : N/A Date of Service: 01/04/2020 History of Present Illness The patient, a 64-year-old man with a reported history of Parkinson's disorder presents to [facility] for altered mental status, during the evaluation it is noted that he is behaving usually and he is brought in for evaluation. During the evaluation, he was noted to be reporting depression and suicidal thoughts, but had been acting fairly bizarre. When I attempted to meet with the patient, he was fairly bizarre, spoke in a very soft voice and was unable to be understood. He appeared to be fairly psychotic and I was unable to gain any meaningful information out of him during the evaluation. Interval History The patient was attempted to be met with today. However, he still speaks so softly and is nearly incomprehensible. The patient has had a fever over the weekend and has a CK elevation that is dropping off. The patient has made little progress on the Abilify, generally is isolative to his room and generally refuses to engage in ADLs. Review Of Systems Unable to obtain due to mental status. Psychotherapy None on this visit. Vital Signs Reviewed. Mental Status Examination General: Poor hygiene. Speech: Very soft spoken. Thought processes: Tangential. MSK: Shuffling gait. Thought content: Bizarre. Abstract reasoning, and computation: Impaired. Description of associations: Impaired. Description of abnormal or psychotic thoughts: Denies any suicidal thoughts today. Judgment: Impaired. Insight: Impaired. Orientation: Alert and orientated to surrounding. Cognition: Abnormal.l Recent and remote memory: Impaired. Attention span and concentration: Impaired. Fund of knowledge: Adequate Mood: "Hello." Affect: Flat and bizarre. Diagnoses Unspecified psychotic disorder. Parkinson's disorder. Assessment and Plan Unspecified psychotic disorder: Discontinue Abilify as possibly could be creating CK elevation, will examine the potential of MDD with psychosis, potentially a antidepressant could be indicated. Parkinson's disorder: Neuro consulted, recommended resuming the patient's home Sinemet with a 15 mg extended release at night. We will order additional CK to trend down. We will monitor for fever. Disposition The patient will need continued admission as he is still highly impaired, attends no ADLs and is so depressed/psychotic that he is unable to function. Time Spent 15 minutes. Saturday Vital Signs Vital Signs Date Time Temp Pulse Resp B/P (MAP) Pulse Ox O2 Delivery O2 Flow Rate FiO2 01/04/20 06:11 98.6 81 14 103/77 (86) 01/03/20 15:00 98 Room Air Current Medications Current Medications Medications (Trade) Dose Ordered Sig/Navneet Route PRN Reason Start Time Stop Time Status Last Admin Dose Admin Acetaminophen (Tylenol Tab) 650 mg Q6HP PRN PO HEADACHE or DISCOMFORT 12/29/19 02:15 Al Hydrox/Mg Hydrox/Simethicone (Mylanta) 30 ml Q4HP PRN PO HEARTBURN/INDIGESTION 12/29/19 02:15 Aripiprazole (AbiLIFY) 2 mg QHS PO 12/31/19 21:00 Artificial Tears (Akwa Tears) 2 drop Q6HP PRN OU DRY EYES 12/29/19 22:00 12/31/19 12:14 Benztropine Mesylate (Cogentin) 0.25 mg TIDP PO 01/04/20 09:30 UNV Carbidopa/Levodopa (Sinemet 25/100) 1 tab QID PO 12/29/19 09:00 12/29/19 11:00 DC Carbidopa/Levodopa (Sinemet 25/100) 1 tab QID PO 12/29/19 13:00 01/03/20 17:34 Chlorpromazine HCl (Thorazine) 25 mg STAT STAT IM 12/28/19 22:21 12/28/19 22:23 DC 12/28/19 23:01 Diphenhydramine HCl (Benadryl) 25 mg STAT STAT IM 12/28/19 22:21 12/28/19 22:23 DC 12/28/19 23:01 Home Med (Med Rec Complete!) ASDIRECTED XX 12/29/19 00:15 12/29/19 00:14 DC Magnesium Hydroxide (Milk Of Magnesia) 30 ml DAILYPRN PRN PO CONSTIPATION 12/29/19 02:15 Quetiapine Fumarate (SEROquel) 25 mg DAILY PO 12/30/19 09:00 12/31/19 11:59 DC 12/31/19 08:15 Quetiapine Fumarate (SEROquel) 75 mg QHS PO 12/29/19 21:45 12/31/19 11:59 DC Quetiapine Fumarate (SEROquel) 75 mg QHS PRN PO SLEEP 12/29/19 02:15 12/29/19 21:33 DC Trazodone HCl (Desyrel) 50 mg QHSP PRN PO INSOMNIA 12/29/19 02:15 Allergies Coded Allergies: latex (Verified Allergy, Intermediate, swelling, 11/19/19) peanut (Verified Allergy, Intermediate, allergy testing, 11/19/19) hydrocortisone (Verified Adverse Reaction, Mild, redness, 11/19/19) JOEL ALBERTO DO Jan 04, 2020 09:32
[2020-01-04] MEDS ORDERED: PILL CUTTER 1 EACH XX PRN (09:45)
[2020-01-04] MEDS: SINEMET 25-100 MG TAB PO SCH ×4 (10:15→20:19)
[2020-01-04 16:00] VITALS: BP 97/67
[2020-01-04] MEDS: SINEMET**CR** 25/100 TABCR PO SCH (20:19)
[2020-01-04] MEDS ORDERED: IBUPROFEN 400 MG TAB PO ONE (21:30)
[2020-01-05 06:30] VITALS: BP 124/59
--- NOTE | 2020-01-05 09:47 | MHIPNPDOC ---
[facility] Progress Note Progress Note Inpatient Progress Note Panda Brito MRN: N/A Date of : N/A Date of Service: 01/05/2020 History of Present Illness The patient, a 64-year-old man with a reported history of Parkinson's disorder presents to [facility] for altered mental status, during the evaluation it is noted that he is behaving usually and he is brought in for evaluation. During the evaluation, he was noted to be reporting depression and suicidal thoughts, but had been acting fairly bizarre. When I attempted to meet with the patient, he was fairly bizarre, spoke in a very soft voice and was unable to be understood. He appeared to be fairly psychotic and I was unable to gain any meaningful information out of him during the evaluation. Interval History The patient is attempted to me today, however, he still remains fairly soft spoken to the point that he is nearly unable to relate any effective history to me. He has been notably more out of his room with complaints of bizarre pains. He is still quite unusual and refuses to engage in his ADLs. Review Of Systems Unable to obtain due to mental status. Psychotherapy None on this visit. Vital Signs Reviewed. Mental Status Examination General: Poor hygiene. Speech: Very soft spoken. Thought processes: Tangential. MSK: Shuffling gait. Thought content: Bizarre. Abstract reasoning, and computation: Impaired. Description of associations: Impaired. Description of abnormal or psychotic thoughts: Denies any suicidal thoughts today. Judgment: Impaired. Insight: Impaired. Orientation: Alert and orientated to surrounding. Cognition: Abnormal.l Recent and remote memory: Impaired. Attention span and concentration: Impaired. Fund of knowledge: Adequate Mood: "Hello." Affect: Flat and bizarre. Diagnoses Unspecified psychotic disorder. Parkinson's disorder. Assessment and Plan Unspecified psychotic disorder: Appears to resume very heavy depression, will consider starting Effexor once patient's CK comes back. Parkinson's disorder: Neuro consulted, recommend he gets benzos. Disposition The patient will need continued admission as he is still highly impaired, attends no ADLs and is so depressed/psychotic that he is unable to function. Time Spent 15 minutes. Saturday Vital Signs Vital Signs Date Time Temp Pulse Resp B/P (MAP) Pulse Ox O2 Delivery O2 Flow Rate FiO2 01/05/20 06:30 97.8 81 18 124/59 (80) 01/03/20 15:00 98 Room Air Current Medications Current Medications Medications (Trade) Dose Ordered Sig/Navneet Route PRN Reason Start Time Stop Time Status Last Admin Dose Admin Acetaminophen (Tylenol Tab) 650 mg Q6HP PRN PO HEADACHE or DISCOMFORT 12/29/19 02:15 Al Hydrox/Mg Hydrox/Simethicone (Mylanta) 30 ml Q4HP PRN PO HEARTBURN/INDIGESTION 12/29/19 02:15 Aripiprazole (AbiLIFY) 2 mg QHS PO 12/31/19 21:00 01/04/20 11:19 DC Artificial Tears (Akwa Tears) 2 drop Q6HP PRN OU DRY EYES 12/29/19 22:00 12/31/19 12:14 Benztropine Mesylate (Cogentin) 0.25 mg TIDP PO 01/04/20 09:30 Carbidopa/Levodopa (Sinemet 25/100) 1 tab QID PO 12/29/19 09:00 12/29/19 11:00 DC Carbidopa/Levodopa (Sinemet 25/100) 1 tab QID PO 12/29/19 13:00 01/04/20 10:15 Carbidopa/Levodopa (Sinemet Cr 25/ 100) 2 tab QHS PO 01/04/20 21:00 Chlorpromazine HCl (Thorazine) 25 mg STAT STAT IM 12/28/19 22:21 12/28/19 22:23 DC 12/28/19 23:01 Diphenhydramine HCl (Benadryl) 25 mg STAT STAT IM 12/28/19 22:21 12/28/19 22:23 DC 12/28/19 23:01 Home Med (Med Rec Complete!) ASDIRECTED XX 12/29/19 00:15 12/29/19 00:14 DC Magnesium Hydroxide (Milk Of Magnesia) 30 ml DAILYPRN PRN PO CONSTIPATION 12/29/19 02:15 Quetiapine Fumarate (SEROquel) 25 mg DAILY PO 12/30/19 09:00 12/31/19 11:59 DC 12/31/19 08:15 Quetiapine Fumarate (SEROquel) 75 mg QHS PO 12/29/19 21:45 12/31/19 11:59 DC Quetiapine Fumarate (SEROquel) 75 mg QHS PRN PO SLEEP 12/29/19 02:15 12/29/19 21:33 DC Trazodone HCl (Desyrel) 50 mg QHSP PRN PO INSOMNIA 12/29/19 02:15 Allergies Coded Allergies: latex (Verified Allergy, Intermediate, swelling, 11/19/19) peanut (Verified Allergy, Intermediate, allergy testing, 11/19/19) hydrocortisone (Verified Adverse Reaction, Mild, redness, 11/19/19) JOEL ALBERTO DO Jan 05, 2020 09:47
[2020-01-05] MEDS: SINEMET 25-100 MG TAB PO SCH ×4 (09:50→21:00)
--- NOTE | 2020-01-05 10:33 | REP ---
SCROTAL ULTRASOUND: Real-time sonographic evaluation of the scrotum and contents is performed and compared to a prior study of 11/11/2019. The testicles are normal in size and echotexture, right testicle measuring 4.1 x 2.5 x 2.8 cm and left testicle 3.6 x 2.0 x 3.2 cm. There is no testicular mass or torsion. Blood flow is seen in each testicle with duplex Doppler evaluation. There is a 5 mm cyst in the right epididymis. Multiple tiny cystic areas are seen in the left epididymis, measuring up to 3 mm in maximum diameter. Small bilateral hydroceles are present. There is a small left varicocele. IMPRESSION: No testicular mass or torsion. Small cystic areas in each epididymis. Small bilateral hydroceles. Small left varicocele. Electronically Signed by Jose Cooper MD 01/05/2020 11:03 A
[2020-01-05 16:05] VITALS: BP 109/75
--- NOTE | 2020-01-05 16:55 | CR ---
DATE OF CONSULTATION: 01/05/2020 REFERRING PROVIDER: Dr. José Antonio Appiah Panda Brito is a 64-year-old male who was evaluated on 09/02/2019 in neurological consultation in the outpatient neurology clinic. 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 The patient was placed on carbidopa-levodopa; he currently takes 25 mg three times a day and did also take carbidopa-levodopa CR 50/200 mg at bedtime. While at [facility] for an admission for acute psychosis, he was given only the immediate release carbidopa-levodopa. He did receive neuroleptic medications and unfortunately developed rigidity. He came in with psychosis, bizarre behavior and confusion, which seems to be improving. The patient may have underlying Lewy body dementia due to his response to these medications. He does state that cognitively he started to have a decline around the same time he had motor function loss with this condition. The patient has had an MRI of the brain on 09/14/2019, which showed mild generalized cerebral and cerebellar atrophy. Head CT completed at [facility] on 12/28/2019 revealed the same. The patient is noted to have mild rhabdomyolysis with a CPK of 929 which elevated to 1107; however, the medical team did not redraw the body. His troponins were less than 0.02 once and TSH was 1.780. His urinalysis was negative. He has been afebrile. The patient, at this point, due to increased stiffness, rigidity, which seems to be improving after holding antipsychotic medications, will be maintained on his carbidopa-levodopa for now. Benzodiazepines will be avoided. The patient states that clonazepam may not have provided him much benefit for his insomnia. REVIEW OF SYSTEMS: 14-point review of systems obtained and is negative except as per history of the present illness. ALLERGIES: LATEX, PEANUT, HYDROCORTISONE. 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 Denies the use of tobacco, alcohol or illicit drugs. FAMILY HISTORY: Mother with diabetes.. PAST MEDICAL HISTORY: Hyperlipidemia, allergic rhinitis, glaucoma, status post bilateral eye surgery and right eye implant, colonoscopy. PHYSICAL EXAMINATION: Blood pressure is 163/77, respiratory rate is 14, temperature is 98.6 degrees Fahrenheit, pulse rate 81, oxygenation 98% on room air. The patient is awake, oriented to his place, name and date. The patient is able to follow commands. He has poor eye contact. He ambulates through the room he states to collect his thoughts. He ambulates with an antalgic gait leading with the right leg, sliding the left leg forward. He has resting tremor of the upper extremities, left worse than right. The patient has increased tone and cogwheel rigidity in both upper extremities, increased tone in the lower extremities. Masked facies is clearly evident. Gait is unsteady. The patient often is seen ambulating, turning, losing balance but taking a step backwards to catch himself quite regularly. Pupils are not reactive on the right, reactive on the left. He can repeat. Extraocular movements appear to be intact. Tongue is midline. Sensation V1, V2, V3 is intact to light touch. There is no pronator drift. Strength is 5/5 including bilateral deltoids, biceps, triceps, iliopsoas are 5-, quadriceps, anterior tibialis are 5/5. Sensory is intact to light touch in all four extremities. Coordination without any gross ataxia, dysmetria, decreased arm swing noted. ASSESSMENT: Suspected Lewy body dementia versus Parkinson's disease. Gait difficulty with shuffling gait, decreased arm swing, mask-like facies. Poor reaction to antipsychotic therapy with rigidity, improving on Congentin. PLAN: Continue Sinemet 25/100 mg one tablet by mouth four times a day. Continue Sinemet CR 50/200 mg by mouth nightly to be restarted tonight. Continue trazodone 50 mg by mouth nightly as needed for insomnia. Continue supportive psychotropic medication care and psychiatric therapy to be completed as per primary team through inpatient care. The patient will follow up with Dr. Lundy in [facility] as scheduled next month. The patient did no show his last visit. Would avoid benzodiazepine medications at this time.
[2020-01-05] MEDS: SINEMET**CR** 25/100 TABCR PO SCH (21:00)
[2020-01-06 06:29] VITALS: BP 140/88
[2020-01-06] MEDS: SINEMET 25-100 MG TAB PO SCH ×4 (08:50→20:39)
--- NOTE | 2020-01-06 10:51 | MHIPNPDOC ---
[facility] Progress Note Progress Note Inpatient Progress Note Panda Brito MRN: N/A Date of : N/A Date of Service: 01/06/2020 History of Present Illness The patient, a 64-year-old man with a reported history of Parkinson's disorder presents to [facility] for altered mental status, during the evaluation it is noted that he is behaving usually and he is brought in for evaluation. During the evaluation, he was noted to be reporting depression and suicidal thoughts, but had been acting fairly bizarre. When I attempted to meet with the patient, he was fairly bizarre, spoke in a very soft voice and was unable to be understood. He appeared to be fairly psychotic and I was unable to gain any meaningful information out of him during the evaluation. Interval History The patient was met with today, he is still fairly bizarre and unable to engage in any meaningful interview. The patient still wanders around his room aimlessly. When he does speak, he is inconsistent. He does appear to have a lack of engagement in ADLs and other reported depressive symptoms. Neurology has been consulted and recommended against benzodiazepines and reinforced his home medications. The patient has not gone to any groups, has required significant engagement in order to do any ADLs. Review Of Systems Unable to obtain due to mental status. Psychotherapy None on this visit. Vital Signs Reviewed. Mental Status Examination General: Poor hygiene. Speech: Very soft spoken. Thought processes: Tangential. MSK: Shuffling gait. Thought content: Bizarre. Abstract reasoning, and computation: Impaired. Description of associations: Impaired. Description of abnormal or psychotic thoughts: Unable to determine. Judgment: Impaired. Insight: Impaired. Orientation: Alert and orientated to surrounding. Cognition: Abnormal.l Recent and remote memory: Impaired. Attention span and concentration: Impaired. Fund of knowledge: Adequate Mood: "Hello." Affect: Flat and bizarre. Diagnoses Unspecified psychotic disorder. Parkinson's disorder. Assessment and Plan Unspecified psychotic disorder: Start Effexor 37.5 mg daily. Parkinson's disorder: Continue neuro recommendations. Disposition The patient will need continued admission as he is still highly impaired, attends no ADLs and is so depressed/psychotic that he is unable to function. Time Spent 15 minutes. Saturday Vital Signs Vital Signs Date Time Temp Pulse Resp B/P (MAP) Pulse Ox O2 Delivery O2 Flow Rate FiO2 3/18/20 06:29 98.6 81 16 140/88 (105) 01/03/20 15:00 98 Room Air Laboratory Data 24H Labs Laboratory Tests 2 01/06/20 07:00: Urine Color DENNISE, Urine Appearance CLEAR, Urine pH 5.0, Urine Specific [place] 1.021, Urine Protein NEGATIVE, Urine Glucose (UA) NEGATIVE, Urine Ketones TRACEH, Urine Blood NEGATIVE, Urine Nitrite NEGATIVE, Urine Bilirubin NEGATIVE, Urine Urobilinogen 4.0H, Urine Leukocyte Esterase NEGATIVE, Urine WBC (Auto) 1, Urine RBC (Auto) 0, Urine Hyaline Casts (Auto) 0, Urine Bacteria (Auto) NEGATIVE, Urine Squamous Epithelial Cells 0, Urine Calcium Oxalate Cryst (Auto) SMALL, Urine Mucus (Auto) SMALL, Urine Sperm (Auto) Current Medications Current Medications Medications (Trade) Dose Ordered Sig/[place] Route PRN Reason Start Time Stop Time Status Last Admin Dose Admin Acetaminophen (Tylenol Tab) 650 mg Q6HP PRN PO HEADACHE or DISCOMFORT 12/29/19 02:15 Al Hydrox/Mg Hydrox/Simethicone (Mylanta) 30 ml Q4HP PRN PO HEARTBURN/INDIGESTION 12/29/19 02:15 Aripiprazole (AbiLIFY) 2 mg QHS PO 12/31/19 21:00 01/04/20 11:19 DC Artificial Tears (Akwa Tears) 2 drop Q6HP PRN OU DRY EYES 12/29/19 22:00 12/31/19 12:14 Benztropine Mesylate (Cogentin) 0.25 mg TIDP PO 01/04/20 09:30 Carbidopa/Levodopa (Sinemet 25/100) 1 tab QID PO 12/29/19 09:00 12/29/19 11:00 DC Carbidopa/Levodopa (Sinemet 25/100) 1 tab QID PO 12/29/19 13:00 01/06/20 08:50 Carbidopa/Levodopa (Sinemet Cr 25/ 100) 2 tab QHS PO 01/04/20 21:00 Chlorpromazine HCl (Thorazine) 25 mg STAT STAT IM 12/28/19 22:21 12/28/19 22:23 DC 12/28/19 23:01 Diphenhydramine HCl (Benadryl) 25 mg STAT STAT IM 12/28/19 22:21 12/28/19 22:23 DC 12/28/19 23:01 Home Med (Med Rec Complete!) ASDIRECTED XX 12/29/19 00:15 12/29/19 00:14 DC Magnesium Hydroxide (Milk Of Magnesia) 30 ml DAILYPRN PRN PO CONSTIPATION 12/29/19 02:15 Quetiapine Fumarate (SEROquel) 25 mg DAILY PO 12/30/19 09:00 12/31/19 11:59 DC 12/31/19 08:15 Quetiapine Fumarate (SEROquel) 75 mg QHS PO 12/29/19 21:45 12/31/19 11:59 DC Quetiapine Fumarate (SEROquel) 75 mg QHS PRN PO SLEEP 12/29/19 02:15 12/29/19 21:33 DC Trazodone HCl (Desyrel) 50 mg QHSP PRN PO INSOMNIA 12/29/19 02:15 Allergies Coded Allergies: latex (Verified Allergy, Intermediate, swelling, 11/19/19) peanut (Verified Allergy, Intermediate, allergy testing, 11/19/19) hydrocortisone (Verified Adverse Reaction, Mild, redness, 11/19/19) JOEL ALBERTO DO Jan 06, 2020 10:51
[2020-01-06] MEDS ORDERED: VENLAFAXINE **XR** 37.5 MG CAPSULE PO ONE (11:15)
[2020-01-06 16:06] VITALS: BP 98/59
[2020-01-06] MEDS: SINEMET**CR** 25/100 TABCR PO SCH (20:42)
[2020-01-07 06:34] VITALS: BP 119/72
[2020-01-07] MEDS: VENLAFAXINE **XR** 37.5 MG CAPSULE PO SCH (09:00)
[2020-01-07] MEDS: SINEMET 25-100 MG TAB PO SCH ×4 (09:01→21:00)
--- NOTE | 2020-01-07 11:08 | MHIPNPDOC ---
[facility] Progress Note Progress Note Inpatient Progress Note Panda Brito MRN: N/A Date of : N/A Date of Service: 01/07/2020 History of Present Illness The patient, a 64-year-old man with a reported history of Parkinson's disorder presents to [facility] for altered mental status, during the evaluation it is noted that he is behaving usually and he is brought in for evaluation. During the evaluation, he was noted to be reporting depression and suicidal thoughts, but had been acting fairly bizarre. When I attempted to meet with the patient, he was fairly bizarre, spoke in a very soft voice and was unable to be understood. He appeared to be fairly psychotic and I was unable to gain any meaningful information out of him during the evaluation. Interval History The patient is examined today, he refuses to get out of bed and generally talks about how things are "hopeless." He's not engaged in any groups and generally doesn't interact much. Even after prompting he does not waver. He's not been taking any medications in terms of the antidepressant and intermittently is compliant with his Sinemet. He's still fairly disabled by his depression and difficult to interact with. Review Of Systems Unable to obtain due to mental status. Psychotherapy None on this visit. Vital Signs Reviewed. Mental Status Examination General: Poor hygiene. Speech: Very soft spoken. Thought processes: Tangential. MSK: Shuffling gait. Thought content: Bizarre. Abstract reasoning, and computation: Impaired. Description of associations: Impaired. Description of abnormal or psychotic thoughts: Unable to determine. Judgment: Impaired. Insight: Impaired. Orientation: Alert and orientated to surrounding. Cognition: Abnormal.l Recent and remote memory: Impaired. Attention span and concentration: Impaired. Fund of knowledge: Adequate Mood: "Hello." Affect: Flat and bizarre. Diagnoses Unspecified psychotic disorder. Parkinson's disorder. Assessment and Plan Unspecified psychotic disorder/depressive: Continue to offer Effexor 37.5 mg daily. Parkinson's disorder: Continue neuro recommendations. Disposition Will need to further the admission in order to encourage patient to take medications, become less disabled. Time Spent 15 minutes Vital Signs Vital Signs Date Time Temp Pulse Resp B/P (MAP) Pulse Ox O2 Delivery O2 Flow Rate FiO2 01/07/20 06:34 98.0 75 18 119/72 (88) 01/03/20 15:00 98 Room Air Current Medications Current Medications Medications (Trade) Dose Ordered Sig/[place] Route PRN Reason Start Time Stop Time Status Last Admin Dose Admin Acetaminophen (Tylenol Tab) 650 mg Q6HP PRN PO HEADACHE or DISCOMFORT 12/29/19 02:15 Al Hydrox/Mg Hydrox/Simethicone (Mylanta) 30 ml Q4HP PRN PO HEARTBURN/INDIGESTION 12/29/19 02:15 Aripiprazole (AbiLIFY) 2 mg QHS PO 12/31/19 21:00 01/04/20 11:19 DC Artificial Tears (Akwa Tears) 2 drop Q6HP PRN OU DRY EYES 12/29/19 22:00 12/31/19 12:14 Benztropine Mesylate (Cogentin) 0.25 mg TIDP PO 01/04/20 09:30 Carbidopa/Levodopa (Sinemet 25/100) 1 tab QID PO 12/29/19 09:00 12/29/19 11:00 DC Carbidopa/Levodopa (Sinemet 25/100) 1 tab QID PO 12/29/19 13:00 01/07/20 09:01 Carbidopa/Levodopa (Sinemet Cr 25/ 100) 2 tab QHS PO 01/04/20 21:00 Chlorpromazine HCl (Thorazine) 25 mg STAT STAT IM 12/28/19 22:21 12/28/19 22:23 DC 12/28/19 23:01 Diphenhydramine HCl (Benadryl) 25 mg STAT STAT IM 12/28/19 22:21 12/28/19 22:23 DC 12/28/19 23:01 Home Med (Med Rec Complete!) ASDIRECTED XX 12/29/19 00:15 12/29/19 00:14 DC Magnesium Hydroxide (Milk Of Magnesia) 30 ml DAILYPRN PRN PO CONSTIPATION 12/29/19 02:15 Quetiapine Fumarate (SEROquel) 25 mg DAILY PO 12/30/19 09:00 12/31/19 11:59 DC 12/31/19 08:15 Quetiapine Fumarate (SEROquel) 75 mg QHS PO 12/29/19 21:45 12/31/19 11:59 DC Quetiapine Fumarate (SEROquel) 75 mg QHS PRN PO SLEEP 12/29/19 02:15 12/29/19 21:33 DC Trazodone HCl (Desyrel) 50 mg QHSP PRN PO INSOMNIA 12/29/19 02:15 Venlafaxine HCl (Effexor Xr) 37.5 mg DAILY PO 01/07/20 09:00 Allergies Coded Allergies: latex (Verified Allergy, Intermediate, swelling, 11/19/19) peanut (Verified Allergy, Intermediate, allergy testing, 11/19/19) hydrocortisone (Verified Adverse Reaction, Mild, redness, 11/19/19) JOEL ALBERTO DO Jan 07, 2020 11:08
[2020-01-07 16:00] VITALS: BP 98/66
[2020-01-07] MEDS: SINEMET**CR** 25/100 TABCR PO SCH (21:00)
[2020-01-08 06:26] VITALS: BP 90/57
[2020-01-08] MEDS: VENLAFAXINE **XR** 37.5 MG CAPSULE PO SCH (09:00)
[2020-01-08] MEDS: SINEMET 25-100 MG TAB PO SCH ×5 (09:16→21:00)
--- NOTE | 2020-01-08 10:38 | MHIPNPDOC ---
[facility] Progress Note Progress Note Inpatient Progress Note Panda Brito MRN: N/A Date of : N/A Date of Service: 01/08/2020 History of Present Illness The patient is a 64-year-old man with a reported history of Parkinson's disorder presents to [facility] for altered mental status, during the evaluation it is noted that he is behaving usually and he is brought in for evaluation. During the evaluation, he was noted to be reporting depression and suicidal thoughts, but had been acting fairly bizarre. When I attempted to meet with the patient, he was fairly bizarre, spoke in a ve ry soft voice and was unable to be understood. He appeared to be fairly psychotic and I was unable to gain any meaningful information out of him during the evaluation. Interval History The patient is evaluated today, he continues to lay in bed, engaging nearly in no ADLs. Discussion amongst the treatment team has revealed there is no injectable antidepressant and a treatment over objection would likely yield nothing actionable. He has had poor results with neuroleptics and as further observation continues, it appears to be psychosis in the setting of depression. The patient has been refusing his Effexor, stating that "things will never get better" and is generally hopeless. He does not attend groups and takes significant prompting in order to leave his room or even eat. Review Of Systems "Too many meds," no other answers in terms of review of systems. Psychotherapy None on this visit. Vital Signs Reviewed. Mental Status Examination General: Poor hygiene. Speech: Very soft spoken. Thought processes: Tangential. MSK: Shuffling gait. Thought content: Bizarre. Abstract reasoning, and computation: Impaired. Description of associations: Impaired. Description of abnormal or psychotic thoughts: Unable to determine. Judgment: Impaired. Insight: Impaired. Orientation: Alert and orientated to surrounding. Cognition: Abnormal. Recent and remote memory: Impaired. Attention span and concentration: Impaired. Fund of knowledge: Adequate Mood: "It's all the same." Affect: Flat and bizarre. Diagnoses Affective psychosis. Parkinson's disorder. Assessment and Plan Unspecified psychotic disorder/depressive: Continue to offer Effexor 37.5 mg daily. Parkinson's disorder: Continue neuro recommendations. Disposition The patient will be continued to be encouraged to take the medications, however, he has been denying any suicidality, he does have significant ADL restrictions secondary to what appeared to be severe depression. It is difficult to ascertain the risks and benefits for his admission due to the Coronavirus epidemic, however, given how impaired he is by his depression, spending the majority of his time in bed, unable to engage in any ADLs, he would likely do very poorly in the current quarantined environment the public life has entered. Time Spent 15 minutes. Saturday Vital Signs Vital Signs Date Time Temp Pulse Resp B/P (MAP) Pulse Ox O2 Delivery O2 Flow Rate FiO2 01/08/20 06:26 98.0 81 14 90/57 (68) 01/03/20 15:00 98 Room Air Current Medications Current Medications Medications (Trade) Dose Ordered Sig/[place]et Route PRN Reason Start Time Stop Time Status Last Admin Dose Admin Acetaminophen (Tylenol Tab) 650 mg Q6HP PRN PO HEADACHE or DISCOMFORT 12/29/19 02:15 Al Hydrox/Mg Hydrox/Simethicone (Mylanta) 30 ml Q4HP PRN PO HEARTBURN/INDIGESTION 12/29/19 02:15 Aripiprazole (AbiLIFY) 2 mg QHS PO 12/31/19 21:00 01/04/20 11:19 DC Artificial Tears (Akwa Tears) 2 drop Q6HP PRN OU DRY EYES 12/29/19 22:00 12/31/19 12:14 Benztropine Mesylate (Cogentin) 0.25 mg TIDP PO 01/04/20 09:30 Carbidopa/Levodopa (Sinemet 25/100) 1 tab QID PO 12/29/19 09:00 12/29/19 11:00 DC Carbidopa/Levodopa (Sinemet 25/100) 1 tab QID PO 12/29/19 13:00 01/08/20 09:16 Carbidopa/Levodopa (Sinemet Cr 25/ 100) 2 tab QHS PO 01/04/20 21:00 Chlorpromazine HCl (Thorazine) 25 mg STAT STAT IM 12/28/19 22:21 12/28/19 22:23 DC 12/28/19 23:01 Diphenhydramine HCl (Benadryl) 25 mg STAT STAT IM 12/28/19 22:21 12/28/19 22:23 DC 12/28/19 23:01 Home Med (Med Rec Complete!) ASDIRECTED XX 12/29/19 00:15 12/29/19 00:14 DC Magnesium Hydroxide (Milk Of Magnesia) 30 ml DAILYPRN PRN PO CONSTIPATION 12/29/19 02:15 Quetiapine Fumarate (SEROquel) 25 mg DAILY PO 12/30/19 09:00 12/31/19 11:59 DC 12/31/19 08:15 Quetiapine Fumarate (SEROquel) 75 mg QHS PO 12/29/19 21:45 12/31/19 11:59 DC Quetiapine Fumarate (SEROquel) 75 mg QHS PRN PO SLEEP 12/29/19 02:15 12/29/19 21:33 DC Trazodone HCl (Desyrel) 50 mg QHSP PRN PO INSOMNIA 12/29/19 02:15 Venlafaxine HCl (Effexor Xr) 37.5 mg DAILY PO 01/07/20 09:00 Allergies Coded Allergies: latex (Verified Allergy, Intermediate, swelling, 11/19/19) peanut (Verified Allergy, Intermediate, allergy testing, 11/19/19) hydrocortisone (Verified Adverse Reaction, Mild, redness, 11/19/19) JOEL ALBERTO DO Jan 08, 2020 10:38
[2020-01-08] MEDS: POLYVINYL ALCOHOL OPHTH SOLN 15 ML(LIQUITEARS) OU PRN (15:27)
[2020-01-08 16:28] VITALS: BP 105/65
[2020-01-08] MEDS: SINEMET**CR** 25/100 TABCR PO SCH (21:00)
[2020-01-09 06:17] VITALS: BP 139/70
[2020-01-09] MEDS: SINEMET 25-100 MG TAB PO SCH ×2 (08:41→12:43)
[2020-01-09] MEDS: VENLAFAXINE **XR** 37.5 MG CAPSULE PO SCH (08:44)
[2020-01-09] MEDS ORDERED: VENL37.598 PO (14:14)
[2020-01-09] MEDS ORDERED: CARB25TA31 PO (14:14)
--- NOTE | 2020-01-09 14:15 | MHDSPDOC ---
[facility] Discharge Summary Discharge Summary DATE OF ADMISSION: Dec 29, 2019 at 02:14 DATE OF DISCHARGE: 01/09/20 Panda Brito Discharge Panda Brito Select Gender MRN: N/A Date of : MM/DD/YYYY Date of Service: 01/09/2020 Diagnoses Malingering. Unspecified depressive disorder. Likely fabrication versus codependent. History of Present Illness The patient is a 64-year-old man with a reported history of Parkinson's disorder presents to [facility] for altered mental status, during the evaluation it is noted that he is behaving usually and he is brought in for evaluation. During the evaluation, he was noted to be reporting depression and suicidal thoughts, but had been acting fairly bizarre. When I attempted to meet with the patient, he was fairly bizarre, spoke in a very soft voice and was unable to be understood. He appeared to be fairly psychotic and I was unable to gain any meaningful information out of him during the evaluation. Consultants Involved Hospitalist/PCP screening Treatment and Progress On The Unit Patient was admitted to the inpatient mental health unit, initially tried on Seroquel with no results. Initially he was thought to be psychotic, however it appeared to become more inconsistent as time went on, with the patient then demonstrating only some reported depressive symptoms, he generally did not engage with this provider much at all and would try to act very bizarre. After observation of the patient's sudden resolution around his significant other and the codependent nature, it became increasingly clear that the patient was malingering, after being confronted with this provider's concerns, the patient suddenly became much more alert and engaged stating "I can't make decisions, my brain is all messed up". The patient was noted to generally engage in staff splitting and his bizarreness cleared remarkably up. He refused to take any antidepressants and generally did not engage in any programming but had no behavioral problems. He attended to ADLs only when prompted. His significant other and family provide care for him as they live right next to him and after confronting the patient and asking whether he wanted to stay, he continued to bloviate, until pointed questions were asked as to the danger he was putting himself in with no engagement in treatment while being on a communal unit with high risk factors for COVID-19. He eventually became upset and asked to leave. Discharge Assessment 64-year-old man with a history of Parkinson's disease presents reportedly with some psychiatric concerns, however he has been denying suicidal and homicidal ideation through his stay and his bizarreness suddenly resolves when confronted about concern for malingering, he could have some mild depression but it is uncl ear as he appears to have manufactured a significant amount of his symptoms in order to stay on the unit and be attended to, his codependent relationship with his significant other observed by nursing appears to support that he is primarily here for attention rather than engagement in care for his depression, he has declined any medication management and does not wish to take the a ntidepressants, even if a TOO could be pursued he would be unlikely to be ever forced to take any medications. He does not meet involuntary criteria due to the factors above as well as any treatment would likely be unable to be forced upon him and further stay on our unit against his will would endanger his life due to the COVID crisis and that outpatient care is safer for him given his lack of interest in engaging in inpatient care. Mental Status Examination General: Fair hygiene Speech: Spontaneous and fluid Thought processes: Linear and logical MSK: No changes, baseline parkinsonism. Thought content: Suddenly improved. Abstract reasoning, and computation: Intact Description of associations: Intact Description of abnormal or psychotic thoughts: Denies any suicidal or homicidal ideation. Denies any auditory or visual hallucinations. Does not appear to be responding to internal stimuli. Does not appear to be endorsing any bizarre or paranoid ideation. Judgment: Chronically limited. Insight: Chronically limited. Orientation: Suddenly more alert and orientated Cognition: Much more conversive. Recent and remote memory: Intact Attention span and concentration: Intact Fund of knowledge: Adequate Mood: "I can't make decisions, my brain is messed up!" Affect: More reactive. Follow Up The social work team worked during the predischarge meeting in order to evaluate for further issues of lethality address them fully before discharge. They worked on safety planning with the patient's family members in order to ensure that the patient will have a safe and effective discharge. Time Spent The amount of time spent in the coordination of care for this patient was approximately 45 minutes. Vital Signs/I&Os Vital Signs Date Time Temp Pulse Resp B/P (MAP) Pulse Ox O2 Delivery O2 Flow Rate FiO2 01/09/20 06:17 98.9 74 18 139/70 (93) 01/03/20 15:00 98 Room Air Medications Scheduled Carbidopa/Levodopa (Carbidopa-Levodopa 25-100 Tab) 1 Each Tablet, 1 TAB PO QID, (Reported) 0800, 1100, 1500, 1900 Carbidopa/Levodopa (Carbidopa-Levo ER 25-100 Tab) 1 Each Tablet.er, 2 TAB PO QHS for parkinsons for 7 Days, #7 Venlafaxine HCl (Venlafaxine HCl ER) 37.5 Mg Cap.er.24h, 37.5 MG PO DAILY for mood for 7 Days, #7 Allergies Coded Allergies: latex (Verified Allergy, Intermediate, swelling, 11/19/19) peanut (Verified Allergy, Intermediate, allergy testing, 11/19/19) hydrocortisone (Verified Adverse Reaction, Mild, redness, 11/19/19) JOEL ALBERTO DO Jan 09, 2020 14:15
== END 2020-01-09 16:20 | disposition home or self-care (01) | DRG 754 ==
LOC: EDBD 17:57 → M ED 17:57 → M ED INP 12-29 02:14 → M PSY 12-29 03:51
PROVIDERS: ADMIT Psychiatry & Neurology Psychiatry; ATTEND Psychiatry & Neurology Addiction Medicine
DX: F32.9 Major depressive disorder, single episode, unspecified (principal); M62.82 Rhabdomyolysis; G31.83 Neurocognitive disorder with Lewy bodies; F02.80 Dementia in other diseases classified elsewhere, unspecified severity, without behavioral disturbance, psychotic disturbance, mood disturbance, and anxiety; G62.9 Polyneuropathy, unspecified; H54.62 Unqualified visual loss, left eye, normal vision right eye; M10.9 Gout, unspecified; R10.31 Right lower quadrant pain; R26.89 Other abnormalities of gait and mobility; E78.2 Mixed hyperlipidemia; M54.5 Low back pain; Z79.899 Other long term (current) drug therapy; Z91.040 Latex allergy status; Z91.010 Allergy to peanuts; Z88.8 Allergy status to other drugs, medicaments and biological substances; Z76.5 Malingerer [conscious simulation]

== ENCOUNTER 2020-02-12 11:05 | Observation (INO) | payer BC, OTHER ==
[~2020-02-12] VITALS: Ht 167.6 cm; Wt 66.5 kg
[~2020-02-12 11:05] MED LIST changes: +CARB25TA31 PO; +VENL37.598 PO
[2020-02-12 12:52] LABS: AMPHETAMINES LEVEL URINE NEGATIVE (NEGATIVE); BARBITURATES URINE NEGATIVE (NEGATIVE); BENZODIAZEPINES URINE NEGATIVE (NEGATIVE); CANNABINOIDS URINE NEGATIVE (NEGATIVE); COCAINE METABOLITE URINE NEGATIVE (NEGATIVE); METHADONE URINE NEGATIVE (NEGATIVE); OPIATES URINE NEGATIVE (NEGATIVE); PHENCYCLIDINE URINE NEGATIVE (NEGATIVE)
[2020-02-12 13:03] LABS: HEMATOCRIT 39.4 % (42.0-52.0); HEMOGLOBIN 13.5 g/dl (13.5-17.5); MEAN CORPUSCULAR HGB CONC 34.3 g/dl (32.0-36.5); MEAN CORPUSCULAR VOLUME 90.6 fl (80.0-96.0); PLATELET COUNT, AUTOMATED 184 10^3/uL (150-450); RED BLOOD COUNT 4.35 10^6/uL (4.30-6.10); WHITE BLOOD COUNT 10.9 10^3/uL (4.0-10.0)
[2020-02-12 13:30] LABS: ALBUMIN 3.8 GM/DL (3.2-5.2); ALT/SGPT 70 U/L (12-78); BILIRUBIN,DIRECT 0.9 MG/DL (0.0-0.2); BILIRUBIN,TOTAL 2.3 MG/DL (0.2-1.0); BLOOD UREA NITROGEN 42 MG/DL (7-18); CALCIUM LEVEL 9.4 MG/DL (8.8-10.2); CARBON DIOXIDE LEVEL 26 MEQ/L (21-32); CHLORIDE LEVEL 103 MEQ/L (98-107); CREATININE FOR GFR 1.41 MG/DL (0.70-1.30); GLUCOSE, FASTING 115 MG/DL (70-100); SODIUM LEVEL 138 MEQ/L (136-145); TOTAL PROTEIN 6.7 GM/DL (6.4-8.2)
[2020-02-12 13:31] LABS: ACETAMINOPHEN LEVEL < 2.0 UG/ML (10.0-30.0); ETHYL ALCOHOL (ETHANOL) < 0.003 % (0.000-0.010); SALICYLATE LEVEL < 1.7 MG/DL (5.0-30.0)
[2020-02-12] MEDS ORDERED: NS 1,000 ML IV ONE (13:45)
[2020-02-12] MEDS ORDERED: CARB1TAB PO (17:23)
[2020-02-12] MEDS ORDERED: VENL37.598 PO (17:23)
[2020-02-12] MEDS ORDERED: med rec comment (17:27)
[2020-02-12 17:35] LABS: CK-MB VALUE MASS 48.1 NG/ML (<3.6); CPK CREATINE PHOSPHOKINASE 3558 U/L (39-308); MB/CK RELATIVE INDEX 1.35 (< OR =4); TROPONIN I 0.02 NG/ML (< 0.10)
[2020-02-12] MEDS: NS 1,000 ML IV SCH (17:54)
[2020-02-12] MEDS ORDERED: ACETAMINOPHEN TAB 650MG DOSE (2X325MG) PO PRN (18:15)
--- NOTE | 2020-02-12 18:34 | ECGEPIP ---
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
[2020-02-12] MEDS: SINEMET 25-100 MG TAB PO SCH ×2 (19:00→22:17)
[2020-02-12 20:04] VITALS: BP 117/74
[2020-02-12 22:00] VITALS: BP 119/77
[2020-02-12] MEDS: SINEMET**CR** 25/100 TABCR PO SCH (22:09)
[2020-02-13] MEDS: NS 1,000 ML IV SCH ×4 (00:37→20:02)
[2020-02-13 06:00] VITALS: BP 119/71
[2020-02-13 06:42] LABS: HEMATOCRIT 34.1 % (42.0-52.0); HEMOGLOBIN 11.6 g/dl (13.5-17.5); MEAN CORPUSCULAR HEMOGLOBIN 31.5 pg (27.0-33.0); MEAN CORPUSCULAR VOLUME 92.7 fl (80.0-96.0); PLATELET COUNT, AUTOMATED 141 10^3/uL (150-450); RED BLOOD COUNT 3.68 10^6/uL (4.30-6.10); WHITE BLOOD COUNT 8.4 10^3/uL (4.0-10.0)
[2020-02-13 06:49] LABS: BLOOD UREA NITROGEN 21 MG/DL (7-18); CALCIUM LEVEL 8.1 MG/DL (8.8-10.2); CARBON DIOXIDE LEVEL 25 MEQ/L (21-32); CHLORIDE LEVEL 111 MEQ/L (98-107); CREATININE FOR GFR 0.76 MG/DL (0.70-1.30); GLOMERULAR FILTRATION RATE > 60.0 (>49); GLUCOSE, FASTING 95 MG/DL (70-100); MAGNESIUM LEVEL 1.9 MG/DL (1.8-2.4); POTASSIUM SERUM 3.7 MEQ/L (3.5-5.1); SODIUM LEVEL 143 MEQ/L (136-145)
[2020-02-13] MEDS: SINEMET 25-100 MG TAB PO SCH ×5 (08:00→18:49)
[2020-02-13] MEDS: VENLAFAXINE **XR** 37.5 MG CAPSULE PO SCH (08:57)
[2020-02-13] MEDS: ENOXAPARIN 40MG/0.4ML SYRINGE (J1650 PER 10MG) SC SCH (08:57)
--- NOTE | 2020-02-13 12:17 | IPNPDOC ---
Text Note Date of Service The patient was seen on 02/13/20. NOTE Subjective: -Is refusing food, home medications, perseverating on a foreign object having been placed in his scrotum. Today he denies scrotal pain. Refusing scrotal ultrasound. Believes nothing will help him. He does however gives me an acurrate prior work history of having worked in [employer], previously lives in [place], moved to [place] 2 years ago, has an estranged son who still lives in [place], has a friend (whom he corrects to not be a significant other) who lives in [place] and is AOx3. Objective: General: Alert, No Acute Distress, Eye: PERRLA, EOMI, anicteric, no injection ENT: Atraumatic, MMM Neck: Supple, no JVD or thyromegaly Chest: Clear to auscultation, Normal air movement Heart: Rate Normal, Regular Rhythm, Normal S1, Normal S2, no mrg Abdomen: Normal bowel sounds, soft, NTND Extremity: no LE edema, WWP, 2+ DP pulses Skin: Very pale, normal turgor and temperature, no rashes or breakdown Neuro: normal speech, speaks in low voice, full strength 5/5 X4 in all 4 ext, CN 2-12 wnl Psych: AOx3, however continues to have fixed delusion about a foreign object having been inserted in his scrotum despite imaging. Flat affect, barely moving with eyes slightly open almost fixed in position Labs: Cr now normalized to 0.76 SARA: Was prerenal and 2/2 to no PO for days, also with element of mild rhabdo not taking his sinemet mostly in fixed position -s/p 1L Ns -continue fluids at 150cc/hr -Cr now normalized -electrolytes wnl Dementia: thus far ongoing neurological evaluation with Dr. Lundy for Parkinson's dementia vs. Lewy body dementia, currently with ongoing delusion about a scrotal implant and refusing all PO and meds -refused CT head -continue his carbidopa/levodopa -continue home venlafaxine -Had ordered scrotal US, patient refused it. No discomfort this AM. ED examination wnl. Recently had scrotal US in 12/2019 without evidence of foreign object -psych consult --> previously admitted to [facility] for psychosis with fixed delusions -PFS consult --> lives alone and non compliant with medications and unable to care for self. Does have family friends that reported that they be open to taking him home once he is adequately hydrated? Patient reported constipation: -milk of mag PRN Psychosocial issues: -believes he is behind in rent but not corroborated with family friends saying that isn't so -Lives alone DVT ppx: lovenox Diet: Regular VS,Fishbone, I+O VS, Fishbone, I+O Laboratory Tests 02/13/20 05:46 Vital Signs Date Time Temp Pulse Resp B/P (MAP) Pulse Ox O2 Delivery O2 Flow Rate FiO2 02/13/20 06:00 98.1 73 17 119/71 (87) 96 Room Air I&O- Last 24 Hours up to 6 AM 02/13/20 06:00 Intake Total 3800 ml Balance 3800 ml JAY JONES MD Feb 13, 2020 12:17
[2020-02-13 14:00] VITALS: BP 110/64
[2020-02-13] MEDS: SINEMET**CR** 25/100 TABCR PO SCH (20:02)
[2020-02-13 22:00] VITALS: BP 118/73
[2020-02-14] MEDS: NS 1,000 ML IV SCH ×4 (02:39→23:21)
[2020-02-14 06:00] VITALS: BP 111/78
[2020-02-14] MEDS: SINEMET 25-100 MG TAB PO SCH ×4 (08:00→19:00)
[2020-02-14] MEDS: ENOXAPARIN 40MG/0.4ML SYRINGE (J1650 PER 10MG) SC SCH (09:00)
[2020-02-14] MEDS: VENLAFAXINE **XR** 37.5 MG CAPSULE PO SCH (09:00)
--- NOTE | 2020-02-14 11:59 | IPNPDOC ---
Text Note Date of Service The patient was seen on 02/14/20. NOTE Subjective: -Continues to refuse food, home medications and continues to perseverate on a foreign object having been placed in his scrotum. -Refused scrotal US yesterday that I had ordered after he reported pain at admission and reported no pain in his scrotum -Consulted psych, still to evaluate patient Objective: General: Alert, No Acute Distress, Eye: PERRLA, EOMI, anicteric, no injection ENT: Atraumatic, MMM Neck: Supple, no JVD or thyromegaly Chest: Clear to auscultation, Normal air movement Heart: Rate Normal, Regular Rhythm, Normal S1, Normal S2, no mrg Abdomen: Normal bowel sounds, soft, NTND Extremity: no LE edema, WWP, 2+ DP pulses Skin: Very pale, normal turgor and temperature, no rashes or breakdown Neuro: normal speech, speaks in low voice, full strength 5/5 X4 in all 4 ext, CN 2-12 wnl Psych: AOx3, however continues to have fixed delusion about a foreign object having been inserted in his scrotum. Flat affect, minimal movement Labs:grossly normal Imaging: none SARA: Was prerenal and 2/2 to no PO for days, also with element of mild rhabdo not taking his sinemet mostly in fixed position -s/p 1L Ns -continue fluids at 150cc/hr as he is not taking any PO -Cr now normalized -electrolytes wnl Dementia: thus far ongoing neurological evaluation with Dr. Lundy for Parkinson's dementia vs. Lewy body dementia, currently with ongoing delusion about a scrotal implant and refusing all PO and meds -refused CT head -continue his carbidopa/levodopa, refusing meds -continue home venlafaxine, refusing meds -Had ordered scrotal US, patient refused it. No discomfort this AM. ED examination wnl. Recently had scrotal US in 12/2019 without evidence of foreign object -psych consult --> previously admitted to [facility] for psychosis with fixed delusions. Consulted psych, still to evaluate patient. -PFS consult --> lives alone and non compliant with medications and unable to care for self. Does have family friends that reported that they be open to taking him home once he is adequately hydrated? Medically clear but without clear safe discharge plan given mental state, refusal of meds, lives alone. Patient reported constipation: -milk of mag PRN Psychosocial issues: -believes he is behind in rent but not corroborated with family friends saying that isn't so -Lives alone DVT ppx: lovenox Diet: Regular Dispo: medically clear, pending psych and PFS consult VS,Fishbone, I+O VS, Fishbone, I+O Vital Signs Date Time Temp Pulse Resp B/P (MAP) Pulse Ox O2 Delivery O2 Flow Rate FiO2 02/14/20 06:00 98.4 61 17 111/78 (89) 97 Room Air I&O- Last 24 Hours up to 6 AM 02/14/20 05:59 Intake Total 4050 ml Output Total 625 ml Balance 3425 ml JAY JONES MD Feb 14, 2020 09:26
[2020-02-14] MEDS: SINEMET**CR** 25/100 TABCR PO SCH (19:53)
[2020-02-14] MEDS ORDERED: FLEET ENEMA PR ONE (20:45)
[2020-02-15] MEDS ORDERED: ALBUTEROL SULFATE 2.5 MG/0.5 ML INH NEB SOLN NEB ONE (05:45)
[2020-02-15 06:00] VITALS: BP 131/76
[2020-02-15] MEDS: NS 1,000 ML IV SCH ×3 (06:00→21:25)
[2020-02-15] MEDS: SINEMET 25-100 MG TAB PO SCH ×4 (08:00→19:00)
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
[2020-02-15] MEDS: VENLAFAXINE **XR** 37.5 MG CAPSULE PO SCH (09:00)
[2020-02-15] MEDS: ENOXAPARIN 40MG/0.4ML SYRINGE (J1650 PER 10MG) SC SCH (09:00)
--- NOTE | 2020-02-15 13:33 | REP ---
KUB ABDOMEN/PELVIS: Two KUB films of abdomen/pelvis are performed. There is moderate fecal material in the rectum. Otherwise, there is relatively mild air and fecal material scattered throughout the remainder of the colon. Air is seen in multiple small bowel loops throughout the abdomen with only mild distention, and the appearance is most consistent with a mild generalized ileus. Multiple phleboliths are seen in the pelvis. There are mild degenerative changes of the spine. Electronically Signed by Jose Cooper MD 02/16/2020 10:05 A
[2020-02-15 14:00] VITALS: BP 129/81
--- NOTE | 2020-02-15 15:04 | IPNPDOC ---
Text Note Date of Service The patient was seen on 02/15/20. NOTE Subjective: -Had aguirre placed overnight for retention -Had some cranberry juice this morning -Continues to refuse food in general, as well as home medications and continues to perseverate on a foreign object having been placed in his scrotum and his rectum -Yesterday he was see by psychiatry that determined that he was not in danger of harming himself or others and otherwise severely depression with delusions that are not treatable with antipsychotics. Recommended expectant management by medicine and no admission to inpatient psychiatry. Objective: General: Alert, No Acute Distress, Eye: PERRLA, EOMI, anicteric, no injection, pale ENT: Atraumatic, MMM Neck: Supple, no JVD or thyromegaly Chest: Clear to auscultation, Normal air movement Heart: Rate Normal, Regular Rhythm, Normal S1, Normal S2, no mrg Abdomen: Normal bowel sounds, soft, NTND Extremity: no LE edema, WWP, 2+ DP pulses Skin: Very pale, normal turgor and temperature, no rashes or breakdown Neuro: normal speech, speaks in low voice, full strength 5/5 X4 in all 4 ext, CN 2-12 wnl Psych: AOx3, however continues to have fixed delusion about a foreign object having been inserted in his scrotum. Flat affect, minimal movement Labsno new labs today Imaging: none SARA: Was prerenal and 2/2 to no PO for days, also with element of mild rhabdo not taking his sinemet mostly in fixed position -s/p 1L Ns -continue fluids at 150cc/hr as he is not taking any significant PO -Cr now normalized -electrolytes wnl Dementia: thus far ongoing neurological evaluation with Dr. Lundy for Parkinson's dementia vs. Lewy body dementia, currently with ongoing delusion about a scrotal implant and refusing all PO and meds -refused CT head -continue his carbidopa/levodopa, refusing meds -continue home venlafaxine, refusing meds -Had ordered scrotal US, patient refused it. No discomfort this AM. ED examination wnl. Recently had scrotal US in 12/2019 without evidence of foreign object -psych consult --> previously [facility] psychosis with fixed delusions. Consulted psych, still to evaluate patient. -PFS consult --> lives alone and non compliant with medications and unable to care for self. Does have family friends that reported that they be open to taking him home once he is adequately hydrated? Medically clear but without clear safe discharge plan given mental state, refusal of meds, lives alone. Patient reported constipation: -milk of mag PRN -mild ileus on AXR Psychosocial issues: -believes he is behind in rent but not corroborated with family friends saying that isn't so -Lives alone DVT ppx: lovenox Diet: Regular Dispo: continues to require IV fluids for hydration as he refuses all PO. psych deemed him without requirement for inpatient psychiatric admission at this time. PFS consulted VS,Anselmobone, I+O VS, Mirae, I+O Vital Signs Date Time Temp Pulse Resp B/P (MAP) Pulse Ox O2 Delivery O2 Flow Rate FiO2 02/15/20 14:00 97.7 59 16 129/81 (97) 97 Room Air I&O- Last 24 Hours up to 6 AM 02/15/20 05:59 Intake Total 1875 ml Output Total 3100 ml Balance -1225 ml JAY JONES MD Feb 15, 2020 15:04
[2020-02-15] MEDS: SINEMET**CR** 25/100 TABCR PO SCH (20:51)
[2020-02-15 22:00] VITALS: BP 118/78
[2020-02-16] MEDS: NS 1,000 ML IV SCH ×3 (04:08→17:48)
[2020-02-16] MEDS ORDERED: FLEET ENEMA PR PRN (04:45)
[2020-02-16 05:54] LABS: HEMATOCRIT 38.1 % (42.0-52.0); MEAN CORPUSCULAR HEMOGLOBIN 31.1 pg (27.0-33.0); MEAN CORPUSCULAR HGB CONC 34.1 g/dl (32.0-36.5); MEAN CORPUSCULAR VOLUME 91.1 fl (80.0-96.0); PLATELET COUNT, AUTOMATED 144 10^3/uL (150-450); RED BLOOD COUNT 4.18 10^6/uL (4.30-6.10); WHITE BLOOD COUNT 6.9 10^3/uL (4.0-10.0)
[2020-02-16 06:00] VITALS: BP 118/76
[2020-02-16 06:50] LABS: BLOOD UREA NITROGEN 10 MG/DL (7-18); CARBON DIOXIDE LEVEL 25 MEQ/L (21-32); CHLORIDE LEVEL 108 MEQ/L (98-107); GLOMERULAR FILTRATION RATE > 60.0 (>49); GLUCOSE, FASTING 89 MG/DL (70-100); POTASSIUM SERUM 3.3 MEQ/L (3.5-5.1); SODIUM LEVEL 141 MEQ/L (136-145)
[2020-02-16] MEDS: MOM 30ML SUSPENSION UDC PO PRN (07:33)
[2020-02-16] MEDS: SINEMET 25-100 MG TAB PO SCH ×4 (07:43→19:00)
[2020-02-16] MEDS: ENOXAPARIN 40MG/0.4ML SYRINGE (J1650 PER 10MG) SC SCH (09:00)
[2020-02-16] MEDS: VENLAFAXINE **XR** 37.5 MG CAPSULE PO SCH (09:00)
[2020-02-16] MEDS ORDERED: KCL 10MEQ/100ML SWI (KRUN) 10 MEQ in IV 1 EA IV SCH (10:00)
[2020-02-16] MEDS ORDERED: POTASSIUM CHLORIDE 10% LIQ 20 MEQ/15 ML UDC PO ONE (11:00)
[2020-02-16] MEDS: TAMSULOSIN 0.4 MG CAP PO SCH (11:06)
--- NOTE | 2020-02-16 12:04 | IPNPDOC ---
Text Note Date of Service The patient was seen on 02/16/20. NOTE Subjective: -Had aguirre replaced yesterday for retention after noted retention -had fleet enema overnight for reported constipation -Surprisingly, at the urging of his excellent nurse, ate his breakfast, walked to the bathroom and agreed to take milk of mag. Objective: General: Alert, No Acute Distress, Eye: PERRLA, EOMI, anicteric, no injection, pale ENT: Atraumatic, MMM Neck: Supple, no JVD or thyromegaly Chest: Clear to auscultation, Normal air movement Heart: Rate Normal, Regular Rhythm, Normal S1, Normal S2, no mrg Abdomen: Normal bowel sounds, soft, NTND Extremity: no LE edema, WWP, 2+ DP pulses Skin: Very pale, normal turgor and temperature, no rashes or breakdown Neuro: normal speech, speaks in low voice, full strength 5/5 X4 in all 4 ext, CN 2-12 wnl Psych: AOx3, continues to have fixed delusion about a foreign object having been inserted in his scrotum. Flat affect. Labs: WBC 6.9 hgb 13 platelets 144 na 141 K 3.3 Cr 0.6 Imaging: AXR that showed a mild generalized ileus with significant rectal stool content SARA: Was prerenal and 2/2 to no PO for days, also with element of mild rhabdo not taking his sinemet mostly in fixed position -s/p 1L NS bolus, continue fluids at 150cc/hr as he is not taking any significant PO -Cr now normalized -electrolytes repleted, getting K40 PO this AM Dementia: thus far ongoing neurological evaluation with Dr. Lundy for Parkinson's dementia vs. Lewy body dementia, currently with ongoing delusion about a scrotal implant and refusing all PO and meds -refused CT head -continue his carbidopa/levodopa, refusing meds -continue home venlafaxine, refusing meds -Had ordered scrotal US, patient refused it. No discomfort reported at this time. ED examination wnl. Recently had scrotal US in 12/2019 without evidence of foreign object -psych consult --> previously admitted to [facility] for psychosis with fixed delusions. Psych recommending no pharmacological agents to add at this time and no indication for [facility] admission at this time. -PFS consult --> lives alone and non compliant with medications and with severe depression and fixed delusions that are debilitating enough to make him unable to care for self. Does have family friends that reported that they be open to taking him home once he is adequately hydrated? Medically dependent on IV fluids and frequent electrolyte repletion given no PO. At this time, without clear safe discharge plan given mental state, refusal of meds, lives alone. Encouraged by the fact that he ate this AM and has been willing to walk to the bathroom. Urinary retention: unclear etiology, likely BPH -will start flomax, unfortunately patient has been refusing all PO medications but will attempt -continue aguirre for now Constipation: -milk of mag PRN, fleet enema PRN -mild ileus on AXR Psychosocial issues: -believes he is behind in rent but not corroborated with family friends saying that isn't so -Lives alone, unsafe for discharge without a clear plan of psychosocial support and commitment to resume PO DVT ppx: lovenox Diet: Regular Dispo: continues to require IV fluids for hydration as he refuses all PO. psych deemed him without requirement for inpatient psychiatric admission at this time. PFS consulted. Took PO this AM, may be improving such that we could discharge h im home, hopefully tomorrow VS,Venus, I+O VS, Mirae, I+O Laboratory Tests 02/16/20 05:17 Vital Signs Date Time Temp Pulse Resp B/P (MAP) Pulse Ox O2 Delivery O2 Flow Rate FiO2 02/16/20 06:00 97.7 69 20 118/76 (90) 97 02/15/20 14:00 Room Air I&O- Last 24 Hours up to 6 AM 02/16/20 06:00 Intake Total 3160 ml Output Total 3050 ml Balance 110 ml JAY JONES MD Feb 16, 2020 09:06
[2020-02-16 14:00] VITALS: BP 116/75
[2020-02-16] MEDS: SINEMET**CR** 25/100 TABCR PO SCH (20:41)
[2020-02-16 21:25] LABS: HEMATOCRIT 37.7 % (42.0-52.0); HEMOGLOBIN 12.6 g/dl (13.5-17.5); MEAN CORPUSCULAR HEMOGLOBIN 30.3 pg (27.0-33.0); MEAN CORPUSCULAR HGB CONC 33.4 g/dl (32.0-36.5); MEAN CORPUSCULAR VOLUME 90.6 fl (80.0-96.0); PLATELET COUNT, AUTOMATED 137 10^3/uL (150-450); RED BLOOD COUNT 4.16 10^6/uL (4.30-6.10); WHITE BLOOD COUNT 6.9 10^3/uL (4.0-10.0)
[2020-02-16 21:41] LABS: BLOOD UREA NITROGEN 10 MG/DL (7-18); C REACTIVE PROTEIN QUANTITATIV 2.07 MG/DL (0.00-0.30); CALCIUM LEVEL 7.3 MG/DL (8.8-10.2); CARBON DIOXIDE LEVEL 25 MEQ/L (21-32); CHLORIDE LEVEL 111 MEQ/L (98-107); CREATININE FOR GFR 0.63 MG/DL (0.70-1.30); GLOMERULAR FILTRATION RATE > 60.0 (>49); GLUCOSE, FASTING 112 MG/DL (70-100); POTASSIUM SERUM 3.8 MEQ/L (3.5-5.1); SODIUM LEVEL 142 MEQ/L (136-145)
[2020-02-16 21:47] LABS: ERYTHROCYTE SEDIMENTATION RATE 6 mm/hr (0-20)
[2020-02-16 22:00] VITALS: BP 123/79
[2020-02-17] MEDS: NS 1,000 ML IV SCH ×3 (00:34→14:18)
[2020-02-17] MEDS: MOM 30ML SUSPENSION UDC PO PRN (05:35)
[2020-02-17 06:00] VITALS: BP 144/95
[2020-02-17] MEDS ORDERED: MIRALAX *UNIT DOSE* 17GM PACKET PO PRN (06:30)
[2020-02-17] MEDS: SINEMET 25-100 MG TAB PO SCH ×4 (08:00→18:15)
[2020-02-17 08:44] LABS: HEMATOCRIT 40.1 % (42.0-52.0); HEMOGLOBIN 13.6 g/dl (13.5-17.5); MEAN CORPUSCULAR HEMOGLOBIN 30.8 pg (27.0-33.0); MEAN CORPUSCULAR HGB CONC 33.9 g/dl (32.0-36.5); MEAN CORPUSCULAR VOLUME 90.9 fl (80.0-96.0); PLATELET COUNT, AUTOMATED 159 10^3/uL (150-450); RED BLOOD COUNT 4.41 10^6/uL (4.30-6.10); WHITE BLOOD COUNT 5.7 10^3/uL (4.0-10.0)
[2020-02-17] MEDS: VENLAFAXINE **XR** 37.5 MG CAPSULE PO SCH ×3 (09:00→11:17)
[2020-02-17] MEDS: ENOXAPARIN 40MG/0.4ML SYRINGE (J1650 PER 10MG) SC SCH (09:00)
[2020-02-17] MEDS: TAMSULOSIN 0.4 MG CAP PO SCH ×3 (09:00→11:17)
[2020-02-17 09:19] LABS: BLOOD UREA NITROGEN 9 MG/DL (7-18); CARBON DIOXIDE LEVEL 24 MEQ/L (21-32); CHLORIDE LEVEL 109 MEQ/L (98-107); CREATININE FOR GFR 0.77 MG/DL (0.70-1.30); GLOMERULAR FILTRATION RATE > 60.0 (>49); GLUCOSE, FASTING 139 MG/DL (70-100); POTASSIUM SERUM 3.8 MEQ/L (3.5-5.1); SODIUM LEVEL 141 MEQ/L (136-145)
[2020-02-17 14:00] VITALS: BP 142/88
--- NOTE | 2020-02-17 15:55 | IPNPDOC ---
Text Note Date of Service The patient was seen on 02/17/20. NOTE Subjective: -Feels ok but continues to feel hopeless all stemming from belief that a device in his scrotum/sometimes noted as being in his intestines is trying to rip out his intestines and causing him to have constipation. -We had a long discussion about what we as providers and as an institution are able to do for patients and our limitations as well. I told him that at this time, he has refused all our recommendations despite showing a complete understanding of the recommendations and the implications of not following them. We therefore would be moved to suggest home discharge but for us to do this safely, I really need his participation in his care, including PT assessment, urination so as to not necessitate an otherwise unnecessary catheter as well adequate PO and trial of the prescribed medications. We agreed that he will try his best today so that we can both be putting our best effort to help him. Objective: General: Alert, No Acute Distress, more conversational today Eye: PERRLA, EOMI, anicteric, no injection, pale ENT: Atraumatic, MMM Neck: Supple, no JVD or thyromegaly Chest: Clear to auscultation, Normal air movement Heart: Rate Normal, Regular Rhythm, Normal S1, Normal S2, no mrg Abdomen: Normal bowel sounds, soft, NTND Extremity: no LE edema, WWP, 2+ DP pulses Skin: Very pale, normal turgor and temperature, no rashes or breakdown Neuro: normal speech, speaks in low voice, full strength 5/5 X4 in all 4 ext, CN 2-12 wnl Psych: AOx3, continues to have fixed delusion about a foreign object having been inserted in his scrotum. Flat affect. Labs: WBC 5.7 hgb 13.6 platelets 159 na 141 K 3.8 Cr 0.77 Plan: SARA: Was prerenal and 2/2 to no PO for days, also with element of mild rhabdo not taking his sinemet mostly in fixed position -s/p 1L NS bolus, may now discontinue fluids as he has improved PO since the conversation we had this morning -Cr now normalized -electrolytes repleted Dementia: thus far ongoing neurological evaluation with Dr. Lundy for Parkinson's dementia vs. Lewy body dementia, currently with ongoing delusion about a scrotal implant and refusing all PO and meds -refused CT head -continue his carbidopa/levodopa, took his medication today -continue home venlafaxine, took his medication today -Had ordered scrotal US, patient refused it. No discomfort reported at this time. ED examination wnl. Recently had scrotal US in 12/2019 without evidence of foreign object -psych consult --> previously admitted to [facility] for psychosis with fixed delusions. Psych recommending no pharmacological agents to add at this time and no indication for [facility] admission at this time. -PFS consult --> lives alone and non compliant with medications and with severe depression and fixed delusions that are debilitating enough to make him unable to care for self. Today he is doing well, has been ambulating, eating and took his medications. Will discharge home tomorrow. Urinary retention: Likely has some BPH, continue flomax, doing much better today Constipation: -milk of mag PRN, fleet enema PRN -taking good PO, normal bowel sounds, had BM this AM Psychosocial issues: -believes he is behind in rent but not corroborated with family friends saying that isn't so -Lives alone, improving self care, will discharge DVT ppx: lovenox Diet: Regular Dispo: Psych deemed him without requirement for inpatient psychiatric admission at this time. PFS consulted. Took PO this AM, improving and I plan to discharge him home tomorrow. VS,Fishbone, I+O VS, Fishbone, I+O Laboratory Tests 02/16/20 21:11 02/17/20 08:32 Vital Signs Date Time Temp Pulse Resp B/P (MAP) Pulse Ox O2 Delivery O2 Flow Rate FiO2 02/17/20 14:00 98.8 88 19 142/88 (106) 99 02/15/20 14:00 Room Air I&O- Last 24 Hours up to 6 AM 02/17/20 06:00 Intake Total 1705 ml Output Total 1100 ml Balance 605 ml JAY JONES MD Feb 17, 2020 15:55
[2020-02-17] MEDS: SINEMET**CR** 25/100 TABCR PO SCH (20:33)
[2020-02-17 22:00] VITALS: BP 110/66
[2020-02-18 06:00] VITALS: BP 110/69
[2020-02-18 06:13] LABS: HEMATOCRIT 34.7 % (42.0-52.0); HEMOGLOBIN 11.7 g/dl (13.5-17.5); MEAN CORPUSCULAR HEMOGLOBIN 31.3 pg (27.0-33.0); MEAN CORPUSCULAR HGB CONC 33.7 g/dl (32.0-36.5); MEAN CORPUSCULAR VOLUME 92.8 fl (80.0-96.0); PLATELET COUNT, AUTOMATED 145 10^3/uL (150-450); RED BLOOD COUNT 3.74 10^6/uL (4.30-6.10); WHITE BLOOD COUNT 5.7 10^3/uL (4.0-10.0)
[2020-02-18 06:45] LABS: BLOOD UREA NITROGEN 10 MG/DL (7-18); CALCIUM LEVEL 8.3 MG/DL (8.8-10.2); CARBON DIOXIDE LEVEL 29 MEQ/L (21-32); CHLORIDE LEVEL 108 MEQ/L (98-107); CREATININE FOR GFR 0.69 MG/DL (0.70-1.30); GLOMERULAR FILTRATION RATE > 60.0 (>49); GLUCOSE, FASTING 92 MG/DL (70-100); POTASSIUM SERUM 3.6 MEQ/L (3.5-5.1); SODIUM LEVEL 142 MEQ/L (136-145)
[2020-02-18] MEDS: VENLAFAXINE **XR** 37.5 MG CAPSULE PO SCH (07:50)
[2020-02-18] MEDS: TAMSULOSIN 0.4 MG CAP PO SCH (07:50)
[2020-02-18] MEDS: SINEMET 25-100 MG TAB PO SCH ×3 (07:50→18:23)
[2020-02-18 14:00] VITALS: BP 115/62
[2020-02-18] MEDS ORDERED: POTASSIUM CHLORIDE 10 MEQ SR TABLET PO ONE (18:45)
--- NOTE | 2020-02-18 18:47 | IPNPDOC ---
Text Note Date of Service The patient was seen on 02/18/20. NOTE Subjective: -Feels ok though he continues to perseverate about severe hopeless terminal illness, that he will explode from his intestines -On discussing discharge, reports that he has to find somewhere to go. I asked him to elaborate on this and he reports that his lease is up in March and we discussed that he has time and can choose to renew it. He reported inability to care for himself. I called his friend who is the only listed contact in the EMR, who then went on to explain to me that she cooks, clean, does laundry and shops for him and most of the time he does not eat the food. He lives alone and is unable? unwilling? too debilitated from paranoid and fixed delusions to do much at all. -He is otherwise taking his meds, eating his meals Objective: General: Alert, No Acute Distress, more conversational today Eye: PERRLA, EOMI, anicteric, no injection, pale ENT: Atraumatic, MMM Neck: Supple, no JVD or thyromegaly Chest: Clear to auscultation, Normal air movement Heart: Rate Normal, Regular Rhythm, Normal S1, Normal S2, no mrg Abdomen: Normal bowel sounds, soft, NTND Extremity: no LE edema, WWP, 2+ DP pulses Skin: Very pale, normal turgor and temperature, no rashes or breakdown Neuro: normal speech, speaks in low voice, full strength 5/5 X4 in all 4 ext, CN 2-12 wnl Psych: AOx3, continues to have fixed delusions about his rectum exploding. Flat affect. Labs: reviewed. CBC and BMP wnl Plan: SARA: Was prerenal and 2/2 to no PO for days, also with element of mild rhabdo not taking his sinemet mostly in fixed position -s/p 1L NS bolus, may now discontinue fluids as he has improved PO since the conversation we had this morning -Cr now normalized -electrolytes repleted Dementia: thus far ongoing neurological evaluation with Dr. Lundy for Parkinson's dementia vs. Lewy body dementia, currently with ongoing delusion about a scrotal implant and refusing all PO and meds -refused CT head -continue his carbidopa/levodopa -continue home venlafaxine -Had ordered scrotal US, patient refused it. No discomfort reported at this time. ED examination wnl. Recently had scrotal US in 12/2019 without evidence of foreign object -psych consult --> previously admitted to [facility] for psychosis with fixed delusions. Psych recommending no pharmacological agents to add at this time and no indication for [facility] admission at this time. -PFS consult --> lives alone and non compliant with medications and with severe depression and fixed delusions that are debilitating enough to make him unable to care for self. Held off discharge after discussion with his friend, to discuss the idea of placement, though I am told by Karli that he will likely be denied. Will discuss it with him and Karli tomorrow morning. Urinary retention: Likely has some BPH, continue flomax Constipation: -milk of mag PRN, fleet enema PRN -taking good PO, normal bowel sounds Psychosocial issues: -believes he is behind in rent but not corroborated with family friends saying that isn't so and now worried about expiring lease -Lives alone, improving engagement in care but still not initiating DVT ppx: lovenox Diet: Regular Dispo: Psych deemed him without requirement for inpatient psychiatric admission at this time. PFS consulted. To discuss safe discharge plan with him and Karli VS,Venus, I+O VS, Mirae, I+O Laboratory Tests 02/18/20 05:34 Vital Signs Date Time Temp Pulse Resp B/P (MAP) Pulse Ox O2 Delivery O2 Flow Rate FiO2 02/18/20 14:00 98.4 68 16 115/62 (79) 98 Room Air I&O- Last 24 Hours up to 6 AM 02/18/20 06:00 Intake Total 2275 ml Output Total 700 ml Balance 1575 ml JAY JONES MD Feb 18, 2020 18:47
[2020-02-18] MEDS: SINEMET**CR** 25/100 TABCR PO SCH (20:30)
[2020-02-18 22:00] VITALS: BP 120/69
[2020-02-19 06:00] VITALS: BP 131/76
[2020-02-19 06:55] LABS: HEMATOCRIT 37.2 % (42.0-52.0); HEMOGLOBIN 12.7 g/dl (13.5-17.5); MEAN CORPUSCULAR HEMOGLOBIN 31.5 pg (27.0-33.0); MEAN CORPUSCULAR HGB CONC 34.1 g/dl (32.0-36.5); MEAN CORPUSCULAR VOLUME 92.3 fl (80.0-96.0); PLATELET COUNT, AUTOMATED 167 10^3/uL (150-450); RED BLOOD COUNT 4.03 10^6/uL (4.30-6.10); WHITE BLOOD COUNT 5.5 10^3/uL (4.0-10.0)
[2020-02-19 07:22] LABS: BLOOD UREA NITROGEN 8 MG/DL (7-18); CALCIUM LEVEL 7.9 MG/DL (8.8-10.2); CARBON DIOXIDE LEVEL 28 MEQ/L (21-32); CHLORIDE LEVEL 106 MEQ/L (98-107); CREATININE FOR GFR 0.63 MG/DL (0.70-1.30); GLOMERULAR FILTRATION RATE > 60.0 (>49); GLUCOSE, FASTING 85 MG/DL (70-100); POTASSIUM SERUM 3.3 MEQ/L (3.5-5.1); SODIUM LEVEL 142 MEQ/L (136-145)
[2020-02-19] MEDS ORDERED: FLOM0.4C39 PO (07:52)
[2020-02-19] MEDS: SINEMET 25-100 MG TAB PO SCH ×2 (08:00→11:00)
[2020-02-19] MEDS ORDERED: POTASSIUM CHLORIDE 10 MEQ SR TABLET PO ONE (08:00)
[2020-02-19] MEDS: TAMSULOSIN 0.4 MG CAP PO SCH (08:07)
[2020-02-19] MEDS: VENLAFAXINE **XR** 37.5 MG CAPSULE PO SCH (08:07)
== END 2020-02-19 12:15 | disposition home or self-care (01) ==
LOC: M ED 11:05 → M ED INP 18:12 → ENRESERVTM 18:27 → ENRESERVDT 18:27 → M MSPAV 20:05
PROVIDERS: ADMIT Internal Medicine; ATTEND Internal Medicine
DX: N17.9 Acute kidney failure, unspecified (principal); M62.82 Rhabdomyolysis; F03.90 Unspecified dementia, unspecified severity, without behavioral disturbance, psychotic disturbance, mood disturbance, and anxiety; R33.9 Retention of urine, unspecified; K59.00 Constipation, unspecified; Z65.9 Problem related to unspecified psychosocial circumstances; E86.0 Dehydration; F22 Delusional disorders; F33.1 Major depressive disorder, recurrent, moderate; F45.1 Undifferentiated somatoform disorder; R63.0 Anorexia; Z79.899 Other long term (current) drug therapy; Z91.14 Patient's other noncompliance with medication regimen; Z91.040 Latex allergy status; Z91.010 Allergy to peanuts; Z88.8 Allergy status to other drugs, medicaments and biological substances
CPT/HCPCS: 36415; 74018; 80048; 80076; 80307; 82140; 82550; 82553; 83735; 84443; 84484; 85027; 85652; 86140; 93005; 96360; 96361; 97161; 97165; 97530; 99285; G0480

== ENCOUNTER 2020-03-07 12:51 | Inpatient (IN) | payer BC, OTHER ==
[~2020-03-07 12:51] MED LIST changes: +CARB1TAB PO; +FLOM0.4C39 PO; -QUET1TAB7 PO; +QUET25TA3 PO; +med rec comment
[2020-03-07] MEDS ORDERED: NS 1,000 ML IV ONE ×3 (13:30→16:30)
[2020-03-07] MEDS ORDERED: LIDOCAINE 2% 5ML JELLY UROJET TOP ONE (13:30)
[2020-03-07 13:34] LABS: BASO % 0.4 % (0.0-1.0); EOS # 0.1 10^3/uL (0.0-0.5); EOS % 1.6 % (0.0-3.0); HEMOGLOBIN 13.5 g/dl (13.5-17.5); LYMPH # 1.3 10^3/uL (1.5-5.0); MEAN CORPUSCULAR HGB CONC 32.1 g/dl (32.0-36.5); MEAN CORPUSCULAR VOLUME 96.6 fl (80.0-96.0); MONO # 0.6 10^3/uL (0.0-0.8); NEUTROPHILS # 5.5 10^3/uL (1.5-8.5); NEUTROPHILS % 72.5 % (36.0-66.0); PLATELET COUNT, AUTOMATED 211 10^3/uL (150-450); RED BLOOD COUNT 4.35 10^6/uL (4.30-6.10); WHITE BLOOD COUNT 7.6 10^3/uL (4.0-10.0)
[2020-03-07 14:24] LABS: ALT/SGPT 33 U/L (12-78); BILIRUBIN,DIRECT 0.3 MG/DL (0.0-0.2); BLOOD UREA NITROGEN 15 MG/DL (7-18); CALCIUM LEVEL 8.2 MG/DL (8.8-10.2); CARBON DIOXIDE LEVEL 29 MEQ/L (21-32); CHLORIDE LEVEL 109 MEQ/L (98-107); CK-MB VALUE MASS 2.8 NG/ML (<3.6); CPK CREATINE PHOSPHOKINASE 114 U/L (39-308); CREATININE FOR GFR 0.91 MG/DL (0.70-1.30); GLOMERULAR FILTRATION RATE > 60.0 (>49); GLUCOSE, FASTING 91 MG/DL (70-100); MB/CK RELATIVE INDEX 2.46 (< OR =4); POTASSIUM SERUM 4.5 MEQ/L (3.5-5.1); SODIUM LEVEL 143 MEQ/L (136-145); TOTAL PROTEIN 6.2 GM/DL (6.4-8.2); TROPONIN I < 0.02 NG/ML (< 0.10)
--- NOTE | 2020-03-07 15:58 | REP ---
KUB ABDOMEN/PELVIS: KUB film of abdomen/pelvis performed. Comparing to prior study of 02/15/2020, there is decreased bowel gas present. The colon demonstrates mild scattered air and fecal material diffusely. There is no evidence of small bowel obstruction. There are phleboliths in the pelvis. There are mild degenerative changes of the spine. IMPRESSION: No evidence of obstruction. Electronically Signed by Jose Cooper MD 03/07/2020 07:32 P
--- NOTE | 2020-03-07 15:58 | REP ---
CHEST: Single view. There is no evidence of acute infiltrate. No pleural effusion is seen. The heart is normal in size. The mediastinal silhouette is unremarkable. The visualized osseous structures are intact. IMPRESSION: No acute pulmonary disease. Electronically Signed by Jose Cooper MD 03/07/2020 07:32 P
[2020-03-07] MEDS ORDERED: NS 1,000 ML IV SCH (16:30)
[2020-03-07] MEDS ORDERED: CIPROFLOXACIN 400 MG in IV 1 EA IV ONE (16:30)
[2020-03-07] MEDS ORDERED: FLOM0.4C39 PO (16:50)
[2020-03-07 17:11] LABS: AMPHETAMINES LEVEL URINE NEGATIVE (NEGATIVE); BARBITURATES URINE NEGATIVE (NEGATIVE); BENZODIAZEPINES URINE NEGATIVE (NEGATIVE); CANNABINOIDS URINE NEGATIVE (NEGATIVE); COCAINE METABOLITE URINE NEGATIVE (NEGATIVE); METHADONE URINE NEGATIVE (NEGATIVE); OPIATES URINE NEGATIVE (NEGATIVE); PHENCYCLIDINE URINE NEGATIVE (NEGATIVE)
[2020-03-07 17:30] VITALS: BP 127/77
[2020-03-07] MEDS ORDERED: MIRALAX *UNIT DOSE* 17GM PACKET PO PRN (17:30)
[2020-03-07] MEDS ORDERED: MOM 30ML SUSPENSION UDC PO PRN (17:30)
[2020-03-07] MEDS ORDERED: SENOKOT S TAB PO PRN (17:30)
[2020-03-07 17:47] LABS: ACETAMINOPHEN LEVEL < 2.0 UG/ML (10.0-30.0)
[2020-03-07] MEDS: LACTOBACILLUS ACIDOPHILUS CAP (BACID) PO SCH ×2 (18:00→20:15)
[2020-03-07] MEDS: cefTRIAXone SOD 1 GM in D5W MINI-BAG PLUS 50 ML IV SCH (18:12)
[2020-03-07] MEDS: SINEMET 25-100 MG TAB PO SCH (18:51)
[2020-03-07] MEDS: SINEMET**CR** 25/100 TABCR PO SCH (20:15)
--- NOTE | 2020-03-07 21:13 | HPE ---
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 Patient lives by himself and has a friend that comes and cooks for him. He says that he was forced to come in but admits to having some dysuria without fever, decreased appetite, hypersomnia, decreased interest in all things, and has been severely depressed. He was previously treated for Parkinson's and possible Lewy body dementia, but says that he has been recently discharged from [facility], Dr. Vargas, and his primary care physician, Dr. Dwight Cleary, and is currently seeking a second opinion from a neurologist in [place] and [place]. Patient admits to stopping his medications because "They don't help me." He says that he used to be a very active person, doing a lot of activities outside the home and doing rock climbing, which has changed since August last year before [place] when he started to have decreasing interests with personality changes. Despite his friend who comes and goes that cares for him, cooking for him, he has had decrease in appetite with about a 70-pound weight loss and some constipation. No prior colonoscopy or gastrointestinal (GI) referral had been done previously. He says he has "No one here." His family is mostly in [place]. He has a sister in [place] and has been three times with a son that he is not in touch with. Patient was going to move from his current residence but now that he is admitted to the hospital "I don't know what to do." Aside from dysuria, urgency and frequency, he complains of generalized rigidity. He is able to perform activities of daily living (ADLs) without any difficulty, ambulates around. He has had no fever, shortness of breath, chest pain, pressure, tightness, dizziness, lightheadedness. Denies any paresthesias of the bilateral upper and lower extremities. No nausea, vomiting. No diarrhea. No abdominal pain but does complain of constipation that he has had for several months and says "nothing helps." Hospitalist was asked to admit for a urinary tract infection, suicidal ideation, and major depressive disorder. A sitter has been placed. The patient is refusing to take antibiotics and refusing a psychiatric consultation at this time. 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 Acute kidney injury due to mild rhabdomyolysis. Urine retention. Chronic constipation. Major depression, delusional disorder, somatic disorder, rule out dependent personality disorder. Hyperlipidemia. Allergic rhinitis. Glaucoma. PAST SURGICAL HISTORY: Prior colonoscopy. Status post bilateral eye surgery. Right eye implant. SOCIAL HISTORY: , lives alone. 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 Denies tobacco, alcohol or illicit drug use. Patient does not have a healthcare proxy and is currently a FULL CODE. FAMILY HISTORY: Mother with diabetes. Most of the family lives in [place]. A sister lives in [facility]. Patient has been three times with a son that he is not in touch with. REVIEW OF SYSTEMS: Per history of the present illness, 12-point system otherwise negative. PHYSICAL EXAMINATION: Vital Signs: Temperature is 96.1, pulse 69, respiratory rate 17, blood pressure 107/79, 100% on room air. The patient is awake, alert, oriented to person, place and time. He has no icterus, no jaundice. Poor eye contact, looks away when speaking unless he is irritated at which point he snaps with his answers. Patient has both arms flexed, masked facies. Pupils are reactive on the left. Speech is fluent. Extraocular muscles are intact. Tongue is midline. Dry mucous membranes. No jugular venous distention (JVD) or thyromegaly. No cervical lymphadenopathy. Lungs are clear to auscultation. No wheezing, rales or rhonchi. Heart: S1, S2, sinus rhythm. Abdomen is soft, nontender, nondistended. Positive bowel sounds. No costovertebral angle tenderness. No hepatosplenomegaly. No abdominal bruit. Extremities: No cyanosis, clubbing or pitting edema. Neurologically, patient has some dysmetria on [id number] testing. No pronator drift. Strength is 5/5 bilateral upper and lower extremities. Gait was not tested. The patient has some rigidity and increased tone in bilateral upper extremities and lower extremities. LABORATORY DATA: White count 7.6, hemoglobin 13, hematocrit 42, platelet count 211. Sodium 143, potassium 4.5, chloride 109, bicarbonate 29, BUN 15, creatinine 0.91, glucose of 91. Total bilirubin 1, direct bilirubin 0.3, AST 24, ALT 33, alkaline phosphatase 60, total CK 114, MB fraction 2.8, troponin less than 0.02, total protein 6.2, albumin of 3. Chest x-ray 03/07/2020: No acute cardiopulmonary disease. Abdominal x-ray: No evidence of obstruction. Urinalysis: Trace ketones, positive nitrites, 4 urobilinogen, 1+ leukocyte esterase, 57 WBCs, 6 RBCs, 1+ bacteria. ASSESSMENT AND PLAN: This is a 64-year-old [place] male with a master's degree in information [employer], has suffered from suspected Parkinson's disease versus Lewy body dementia and Parkinson-plus syndrome, major depressive disorder, delusional disorder, somatic disorder, rule out dependent personality disorder, with prior history of hyperlipidemia, allergic rhinitis, bilateral eye surgery with right eye implant, was brought into the emergency room due to depressive symptoms and complaints of dysuria. Patient had abnormal urinalysis but refuses to take antibiotics and does not want to see a psychiatrist despite complaints of hypersomnia, anhedonia, with noncompliance with his medications. Patient admits to having suicidal ideation "because of his disease." He currently has a friend who has been caring for him but is estranged from his son and his ex-. Most of his family is in [place] and a sister in [facility]. ACTIVE ISSUES ARE FOLLOWS: 1. Urinary tract infection. Complains of dysuria with abnormal urinalysis. No costovertebral angle tenderness on exam. He is afebrile with no white count. Patient has been ordered ceftriaxone but refuses to take antibiotics. I have indicated to him that we cannot force him to receive treatment and he can refuse any time. 2. Major depression with suicidal ideation. Patient admits to anhedonia, hypersomnia, weight loss of about 70 pounds, but does not want to speak with a psychiatrist at this time. He is noncompliant with his medications. Sitter will be placed. 3. 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 Patient admits to not taking his medications. We will resume them during the hospital stay, but he may refuse if he pleases. 4. BPH. Continue on Flomax. 5. Major depression. Patient does not want to see a psychiatrist. Continue on his depressive medications for now. 6. 70-pound weight loss and constipation. Per records, patient has had a prior colonoscopy. Patient, however, does not recall. Will check a TSH level. He complains of constipation with abdominal x-ray showing no evidence of obstruction. Bowel regimen will be provided. CODE STATUS: Full Code. MTDD
[2020-03-07 21:30] VITALS: BP 92/64
[2020-03-07 22:00] VITALS: BP 92/64
[2020-03-07 23:00] VITALS: BP 106/68
[2020-03-08 06:00] VITALS: BP 105/69
--- NOTE | 2020-03-08 07:12 | ECGEPIP ---
[facility] - ED Test Date: 2020-03-07 Pat Name: ESTER SPANGLER Department: Room: - Gender: Male Rehab Manager: : [id number] Requested By: Mak Hicks Order Number: [id number] Reading MD: Olive Yates Measurements Intervals [place] Rate: 69 P: 46 NH: 134 QRS: 85 QRSD: 76 T: 41 QT: 411 QTc: 441 Interpretive Statements SINUS RHYTHM NONSPECIFIC T-WAVE ABNORMALITY Electronically Signed on 03-08-2020 7:12:55 EDT by Olive Yates
[2020-03-08] MEDS: LACTOBACILLUS ACIDOPHILUS CAP (BACID) PO SCH ×4 (08:00→20:05)
[2020-03-08] MEDS: SINEMET 25-100 MG TAB PO SCH ×5 (08:00→20:06)
[2020-03-08] MEDS ORDERED: VENLAFAXINE **XR** 37.5 MG CAPSULE PO SCH ×2 (09:00→13:30)
[2020-03-08] MEDS: TAMSULOSIN 0.4 MG CAP PO SCH (09:00)
[2020-03-08] MEDS ORDERED: PILL CUTTER 1 EACH XX PRN (13:30)
[2020-03-08 14:00] VITALS: BP 105/69
--- NOTE | 2020-03-08 15:46 | IPNPDOC ---
Text Note Date of Service The patient was seen on 03/08/20. NOTE Patient was seen and examined this morning in the presence of a sitter. The patient was standing comfortably without any discomfort or distress. He has a very slow in affect but has no complaints. PHYSICAL EXAMINATION: Gen. The patient is awake, alert, oriented to person, place and time. Poor eye contact, looks away when speaking Lungs are clear to auscultation. No wheezing, rales or rhonchi. Heart: S1, S2, sinus rhythm. Abdomen is soft, nontender, nondistended. Positive bowel sounds. No costovertebral angle tenderness. No hepatosplenomegaly. No abdominal bruit. Extremities: No cyanosis, clubbing or pitting edema. Neurologically, patient has some dysmetria on [id number] testing. No pronator drift. Strength is 5/5 bilateral upper and lower extremities. The patient has some rigidity and increased tone in bilateral upper extremities and lower extremities. Labs reviewed. Radiology reviewed Chest x-ray 03/07/2020: No acute cardiopulmonary disease. Abdominal x-ray: No evidence of obstruction. 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 Patient had abnormal urinalysis but refuses to take antibiotics and does not want to see a psychiatrist despite complaints of hypersomnia, anhedonia, with noncompliance with his medications. Patient admits to having suicidal ideation "because of his disease." And for that reason he was admitted to the hospital for further evaluation and possible psychiatric consult. 1. Urinary tract infection. Complains of dysuria with abnormal urinalysis. No costovertebral angle tenderness on exam. He is afebrile with no white count. Started on ceftriaxone , day 1 2. Major depression with suicidal ideation. Patient admits to anhedonia, hypersomnia, weight loss of about 70 pounds, but does not want to speak with a psychiatrist at this time. Although psychiatric consult has been initiated He is noncompliant with his medications. Sitter is in place 3. 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 Patient admits to not taking his medications. We will resume them during the hospital stay, but he may refuse if he pleases. 4. BPH. Continue on Flomax. 5. Major depression. Patient does not want to see a psychiatrist. Continue on his depressive medications for now. 6. 70-pound weight loss and constipation. Per records, patient has had a prior colonoscopy. Patient, however, does not recall. He complains of constipation with abdominal x-ray showing no evidence of obstruction. Laxatives when necessary He currently has a friend who has been caring for him but is estranged from his son and his ex-. Most of his family is in [place] and a sister in [facility]. CODE STATUS: Full Code. Disposition. Likely home with friend if cleared by psychiatrically. He wants to go home. PT, OT and case manager are also involved. VS,Fishbone, I+O VS, Fishbone, I+O Vital Signs Date Time Temp Pulse Resp B/P (MAP) Pulse Ox O2 Delivery O2 Flow Rate FiO2 03/08/20 14:00 98.3 67 18 105/69 (81) 98 Room Air I&O- Last 24 Hours up to 6 AM 03/08/20 06:00 Intake Total 3720 ml Output Total 750 ml Balance 2970 ml SARAHI MCNEIL MD March 08, 2020 15:46
[2020-03-08] MEDS: cefTRIAXone SOD 1 GM in D5W MINI-BAG PLUS 50 ML IV SCH (18:32)
[2020-03-08] MEDS: SINEMET**CR** 25/100 TABCR PO SCH (20:06)
[2020-03-08] MEDS: VENLAFAXINE 25 MG TAB PO SCH (20:06)
[2020-03-08 22:00] VITALS: BP 104/68
[2020-03-09 06:00] VITALS: BP 98/70
[2020-03-09 06:03] VITALS: BP 100/66
[2020-03-09 06:04] VITALS: BP 100/66
[2020-03-09] MEDS ORDERED: VENL1TAB35 PO (07:55)
[2020-03-09] MEDS: LACTOBACILLUS ACIDOPHILUS CAP (BACID) PO SCH ×2 (08:00→12:15)
[2020-03-09] MEDS: TAMSULOSIN 0.4 MG CAP PO SCH (08:32)
[2020-03-09] MEDS: VENLAFAXINE 25 MG TAB PO SCH (08:32)
[2020-03-09] MEDS: SINEMET 25-100 MG TAB PO SCH (11:00)
--- NOTE | 2020-03-09 18:00 | CR ---
DATE OF CONSULTATION: 03/08/2020 This is a telemedicine video assessment. It is being done because of the virus pandemic. The patient is in the medical floor at [facility]. CHIEF COMPLAINT: He has been suicidal. SUBJECTIVE: He is 64 years old. He has a history of Parkinson's disease, possibly Parkinson's dementia, though that is not clear, and is considerably depressed, and there is some concern that he has expressed thoughts of suicide. The bulk of the history is obtained from the chart, an attempt is made to interview the patient, he is not very forthcoming with the history, either unable to or unwilling to. 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 Johnson in the inpatient unit a couple of months or so ago, where there were some concerns that the patient may have been malingering, though details are unclear. He was admitted to the inpatient psychiatry unit at that time, was there for about 11 days, was diagnosed with an unspecified depressive disorder, this is in addition to the malingering, and at that time had presented with altered mental status. He was discharged on venlafaxine at 37.5 mg daily, and I am unaware of whether he followed up with outpatient care or not. He came in this time around, says was forced to come in, but did not elaborate, and apparently has expressed thoughts of suicide. He has been noted to be quite depressed, and recently apparently stopped taking medications, was discharged from [facility], as well as his primary care, Dr. Dwight Cleary. He informed the hospitalist that he had stopped taking the medicines as they did not help him. Apparently, he was quite active but has diminished activity since last August, some personality changes, has experienced a considerable decrease in appetite, has lost about 70 pounds in the last few months. He is assisted by a friend, again details are unknown, and his family is mostly in [place]. He also has a son, he is apparently not in touch with him. He came in as there was some question regarding dysuria, urgency and frequency, weakness, complaints of generalized rigidity. Apparently, he is able to perform activities of daily living, and ambulate. He does say that while in the hospital he has had some assistance in mobility, getting out of bed, but that he has been able to do so. He acknowledges he feels depressed, and that he has not been doing much lately, at some point suggests that he does not want to continue with the conversation, but when asked whether he was suicidal, he says he did not want to answer that question, and would not elaborate. As per the notes by the hospitalist, he had acknowledged suicidal thoughts, apparently because of his disease. He has been diagnosed a urinary tract infection, and admitted to the department of medicine, has been reluctant, at some point has even refused, taking antibiotics, the hospitalist informed me that there is a lack of consistency in his taking medicines. He did not elaborate on any particular methods by which he would harm himself, and when further questions were asked, indicated he wanted to end the interview. It should be noted he was seen in the presence of staff from inpatient psychiatry, in fact the nurse, Manny Calles, was there, assisting me with the video evaluation. PAST PSYCHIATRIC HISTORY: As indicated above, he has had one inpatient hospitalization, was in the inpatient unit a couple of months ago, in December 2019. PAST MEDICAL HISTORY: He has been diagnosed with Parkinson's disease, some question regarding Lewy body dementia, plus possible Parkinson's related dementia, major depressive disorder. He was apparently seen by Dr. Che recently, when in the hospital, there were some concerns about a delusion disorder, and it was thought that he was quite depressed at the time, but that he would not benefit from an inpatient stay. SOCIAL HISTORY: He is assisted by a friend, but I am not aware of details. MENTAL STATUS EXAMINATION: He is lying in bed. He is guarded, some latency of response, no agitation, possibly some psychomotor retardation, answers questions logically, coherently but briefly. Affect is quite flat, with little reactivity, and when it is reactive, it is of limited range. He refuses to answer when inquired about suicidal ideas. No evidence of any homicidal ideas. Currently, no evidence of any psychosis. He did not appear to be internally preoccupied. No delusional ideations that I could elicit, though it is a brief interview. He is alert. No fluctuation of consciousness. He is oriented to place, person, and time. I did not formally assess him for short-term memory. Intellect, given the interview, seems to be average. Judgment and insight are quite questionable. ASSESSMENT: 1. Major depressive disorder, severe. 2. Rule out dementia. Nonadherence to treatment recommendations, deterioration in functioning recently, considerable loss of weight. RECOMMENDATIONS: Given this evaluation, though relatively brief, the patient appears quite depressed, and as there are concerns regarding suicidal ideations, and his declining to elaborate or in fact even answer any inquiries related to that, I suggest considering hospitalizing the patient psychiatrically, but only if medically stable. I would be uncomfortable at this point if the patient go home in this emotional state, given his judgment, the intensity of his mood possibly, and diminished ability to cater for himself. It would be helpful gathering collateral information from the patient's instructor pilot/friend, but the patient is quite reluctant for us to speak with her. Thank you for the consult. If there are any questions, please call. The assessment took 30 minutes.
--- NOTE | 2020-03-09 18:06 | DS.PDOC ---
Discharge Summary General Date of Admission March 07, 2020 at 16:27 Date of Discharge March 09, 2020 Attending Physician: SARAHI MCNEIL MD Specialist/Consultants Involve: Adam Olivier MD Discharge Summary PROCEDURES PERFORMED DURING STAY: [None]. ADMITTING DIAGNOSES: 1. Suicidal ideation DISCHARGE DIAGNOSES: 1. Suicidal ideation COMPLICATIONS/CHIEF COMPLAINT: Suicidal Ideation. 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 Patient lives by himself and has a friend that comes and cooks for him. He says that he was forced to come in but admits to having some dysuria without fever, decreased appetite, hypersomnia, decreased interest in all things, and has been severely depressed. He was previously treated for Parkinson's and possible Lewy body dementia, but says that he has been recently discharged from [facility], Dr. Vargas, and his primary care physician, Dr. Dwight Cleary, and is currently seeking a second opinion from a neurologist in [place] and [place]. Patient admits to stopping his medications because "They don't help me." He says that he used to be a very active person, doing a lot of activities outside the home and doing rock climbing, which has changed since August last year before [place] when he started to have decreasing interests with personality changes. Despite his friend who comes and goes that cares for him, cooking for him, he has had decrease in appetite with about a 70-pound weight loss and some constipation. No prior colonoscopy or gastrointestinal (GI) referral had been done previously. He says he has "No one here." His family is mostly in [place]. He has a sister in [place] and has been three times with a son that he is not in touch with. Patient was going to move from his current residence but now that he is admitted to the hospital "I don't know what to do." Aside from dysuria, urgency and frequency, he complains of generalized rigidity. He is able to perform activities of daily living (ADLs) without any difficulty, ambulates around. He has had no fever, shortness of breath, chest pain, pressure, tightness, dizziness, lightheadedness. Denies any paresthesias of the bilateral upper and lower extremities. No nausea, vomiting. No diarrhea. No abdominal pain but does complain of constipation that he has had for several months and says "nothing helps." Hospitalist was asked to admit for a urinary tract infection, suicidal ideation, and major depressive disorder. A sitter has been placed. The patient is refusing to take antibiotics and refusing a psychiatric consultation at this time. HOSPITAL COURSE: The patient was admitted for AMS , thought to be related to worsened Parkinson's dementia versus UTI. He was given 1 dose of Rocephin and refused any further doses. He remained very nonconversant and flat throughout hi s hospitalization. He required a sitter for his suicidality. Psychiatry was consulted for assessment and determine the patient would best be cared for in the inpatient mental health unit. On hospital day 3, he was deemed medically stable and was discharged to the mental health unit. DISCHARGE MEDICATIONS: Please see below. ALLERGIES: Please see below. PHYSICAL EXAMINATION ON DISCHARGE: VITAL SIGNS: Please see below. GENERAL APPEARANCE: Laying in bed, appears stated age, no acute distress, calm, cooperative HEENT: EOMI, PERRLA, neck is supple with no thyromegaly or lymphadenopathy RESPIRATORY: Lungs are clear to auscultation bilaterally with no adventitious breath sounds appreciated CARDIOVASCULAR: no JVD, RRR,no murmurs/rubs/gallops, normal S1 and S2 ABDOMEN: +BS, soft, nontender to palpation in all four quadrants, no masses/organomegaly EXTREMITIES: no clubbing, cyanosis or edema noted NEUROLOGICAL: CN 2-12 intact, No obvious focal deficits PSYCHIATRIC: normal mood/affect Skin: No rashes or ulcers appreciated, warm and well-perfused LN: No significant cervical or inguinal lymphadenopathy LABORATORY DATA: Please see below. IMAGING: ABDOMINAL XR: KUB ABDOMEN/PELVIS: KUB film of abdomen/pelvis performed. Comparing to prior study of 02/15/2020, there is decreased bowel gas present. The colon demonstrates mild scattered air and fecal material diffusely. There is no evidence of small bowel obstruction. There are phleboliths in the pelvis. There are mild degenerative changes of the spine. IMPRESSION: No evidence of obstruction. CXR: CHEST: Single view. There is no evidence of acute infiltrate. No pleural effusion is seen. The heart is normal in size. The mediastinal silhouette is unremarkable. The visualized osseous structures are intact. IMPRESSION: No acute pulmonary disease. PROGNOSIS: Fair ACTIVITY: [As tolerated]. DIET: As tolerated DISCHARGE PLAN: IM DISPOSITION: 66 [facility]. DISCHARGE INSTRUCTIONS: 1. None ITEMS TO FOLLOWUP ON ON OUTPATIENT: 1. None DISCHARGE CONDITION: [Stable]. TIME SPENT ON DISCHARGE: Greater than 35 minutes. Vital Signs/I&Os Vital Signs Date Time Temp Pulse Resp B/P (MAP) Pulse Ox O2 Delivery O2 Flow Rate FiO2 03/09/20 06:04 100/66 (77) 03/09/20 06:00 98.2 75 18 98 Room Air I&O- Last 24 Hours up to 6 AM 03/09/20 06:00 Intake Total 770 ml Output Total 400 ml Balance 370 ml Microbiology Microbiology 03/07/20 Urine Culture - Final, Complete Escherichia Coli Discharge Medications Scheduled Carbidopa/Levodopa (Carbidopa-Levodopa 25-100 Tab) 1 Each Tablet, 1 TAB PO QID, (Reported) 0800, 1100, 1500, 1900 Carbidopa/Levodopa (Carbidopa-Levo ER 25-100 Tab) 1 Each Tablet.er, 2 TAB PO QHS, (Reported) Tamsulosin HCl (Flomax) 0.4 Mg Capsule, 0.4 MG PO DAILY, (Reported) Venlafaxine HCl (Venlafaxine HCl) 25 Mg Tablet, 12.5 MG PO BID Allergies Coded Allergies: latex (Verified Allergy, Intermediate, swelling, 11/19/19) peanut (Verified Allergy, Intermediate, allergy testing, 11/19/19) hydrocortisone (Verified Allergy, Mild, redness, 03/07/20) GME ATTESTATION GME ATTESTATION My faculty preceptor for this patient encounter was physically present during the encounter and was fully available. All aspects of the patient interview, examination, medical decision making process, and medical care plan development were reviewed and approved by the faculty preceptor. The faculty preceptor is aware and concurs with the plan as stated in the body of this note and will attest to such by his/her cosignature. ATTENDING NOTE Patient was seen and examined by me and agree with the above assessment and plan CJ SOLORIO MD March 09, 2020 18:06 SARAHI MCNEIL MD March 11, 2020 18:06
== END 2020-03-09 15:35 | DRG 463 ==
LOC: M ED 12:51 → EDBD 12:51 → M ED INP 16:27 → ENRESERV 16:41 → M MSPAV 17:23
PROVIDERS: ADMIT General Practice; ATTEND Internal Medicine
DX: N39.0 Urinary tract infection, site not specified (principal); R45.851 Suicidal ideations; G31.83 Neurocognitive disorder with Lewy bodies; F02.80 Dementia in other diseases classified elsewhere, unspecified severity, without behavioral disturbance, psychotic disturbance, mood disturbance, and anxiety; Z79.899 Other long term (current) drug therapy; Z91.040 Latex allergy status; Z88.8 Allergy status to other drugs, medicaments and biological substances; Z91.010 Allergy to peanuts; K59.00 Constipation, unspecified; F32.2 Major depressive disorder, single episode, severe without psychotic features; N40.0 Benign prostatic hyperplasia without lower urinary tract symptoms

== ENCOUNTER 2020-03-09 12:15 | Inpatient (IN) | payer BC, OTHER ==
[~2020-03-09 12:15] MED LIST changes: +QUET1TAB7 PO; -QUET25TA3 PO; +VENL1TAB35 PO
[2020-03-09] MEDS ORDERED: IBUPROFEN 400 MG TAB PO PRN (14:15)
[2020-03-09] MEDS ORDERED: traZODone 50 MG TAB PO PRN (14:15)
[2020-03-09] MEDS ORDERED: MAALOX 30 ML SUSP *UDC PO PRN (14:15)
[2020-03-09] MEDS ORDERED: MOM 30ML SUSPENSION UDC PO PRN (14:15)
[2020-03-09 15:43] VITALS: BP 106/76
[2020-03-09] MEDS ORDERED: PILL CUTTER 1 EACH XX PRN (16:00)
[2020-03-09 18:18] VITALS: BP 100/73
[2020-03-09] MEDS: SINEMET 25-100 MG TAB PO SCH (18:56)
[2020-03-09] MEDS: VENLAFAXINE 25 MG TAB PO SCH (21:00)
[2020-03-09] MEDS: SINEMET**CR** 25/100 TABCR PO SCH (21:00)
[2020-03-10 06:26] VITALS: BP 100/56
[2020-03-10] MEDS: VENLAFAXINE 25 MG TAB PO SCH ×2 (08:48→21:00)
[2020-03-10] MEDS: TAMSULOSIN 0.4 MG CAP PO SCH (08:48)
--- NOTE | 2020-03-10 08:56 | HPE ---
DATE OF ADMISSION: 03/09/2020 This is a hospitalist-generated admission history and physical on an inpatient mental health unit (IMHU) patient. He is a 64-year-old with several [facility] hospitalizations and previous histories and physicals are all available. The patient is noncooperative with history and physical. I reviewed past records. The patient currently sees Dr. Dwight Cleary, and he is his primary care provider. Office records from [facility], who was his previous primary care provider from 06/02/2018, were reviewed and did provide some history. The patient is from [place] and has a history of intermittent acute urticaria, seasonal asthma, benign prostatic hypertrophy (BPH) with obstructive symptoms. There were some records from [place], [place], in his office chart. They indicate he had been tested for hepatitis B and C because abnormal liver function test, and the testing was negative. 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 He appears to have some parkinsonism and has seen neurology in the past, but those notes are not available. SOCIAL HISTORY: Nonsmoker. No alcohol. Single marital status. ALLERGIES: HYDROCORTISONE, LATEX, PEANUTS, SPINACH, LEVAQUIN. SURGICAL HISTORY: Colonoscopy, cataract extraction. FAMILY HISTORY: Mother diabetes. REVIEW OF SYSTEMS: Unobtainable. PHYSICAL EXAMINATION: Vital signs per nursing flow sheet. The patient did not want to be examined and spent much of the discussion shuffling around his room. HEENT: Grossly unremarkable. Lungs clear. Heart: Regular rate and rhythm. Abdomen: Soft, nontender. No peripheral edema. He has rigidity of the extremities. Gait shuffling, and he exhibited some instability, as well as retropulsion. IMPRESSION: 1. Suspected Lewy body dementia versus Parkinson disease. I would recommend a neurology consultation. Will defer this to psychiatry. 2. History of urinary tract infection. Recommend urinalysis (UA) and culture and sensitivity (C and S) if he develops severe urinary symptoms. 3. Benign prostatic hypertrophy. Continue his tamsulosin.
[2020-03-10] MEDS: SINEMET 25-100 MG TAB PO SCH ×5 (09:09→19:00)
--- NOTE | 2020-03-10 09:58 | MHHPEPDOC ---
[facility] History & Physical History and Physical DATE OF ADMISSION: March 09, 2020 at 15:39 New Patient Panda Brito MRN: N/A Date of : N/A Date of Service: 03/10/2020 Chief Complaint " ..." History of Present Illness The patient is a 64-year-old man with a history of dependent personality disorder and malingering on our unit, presents after being admitted out of an abundance of caution. The patient reports that he had been feeling down and lost some weight; however, he has not been taking his Parkinson's meds and does not want to comply with his medical treatment. Due to the concerns of depression, he was admitted. However, he has been seen multiple times where he generally is uninterested in treatment, without any suicidal or homicidal ideation. On the first day of admission, the patient refuses to meet with me as is expected with his primary presentation as he generally only engages in order to further attention seeking. Review Of Systems Unable to obtain. Patient refuses interview. Past Psychiatric History Reportedly has a history of depression, primarily Parkinson's. He has been tried on Effexor. No history of suicide attempts. Previous inpatient in December. Allergies Please see below. Family Psychiatric History Unclear at this time. Patient has generally not provided much in terms of a psychosocial on his previous admissions as he refuses to cooperate. Social History The patient reports originally growing up in [place]. Currently, he lives alone but has a girlfriend that takes care of him. There appears to be quite a codependent relationship together and the patient generally engages in activ ities only when interested. The patient has family members in [place] and [facility]. Substance Abuse History No notable history of substance use. Medical History Has a history of Parkinson's disease, on Sinemet. Patient recently fired his neurologist as he does not want to continue treatment for Parkinson's and wants a second opinion reportedly. Mental Status Examination Patient refuses interview. Diagnoses Unspecified depressive disorder. Likely anhedonia related to poorly controlled Parkinson's. The patient refuses to get treated. Dependent personality. Likely malingering. Assessment and Plan The patient at this time will be resumed on his home medications, it is highly unlikely that he will meet involuntary criteria tomorrow as he will be denying suicidal and homicidal ideation as he usually does. He does appear to have a weight loss of roughly 70 pounds in the past several months; however, it is difficult to justify imminency in terms of self-harm at this time. Even if we were able to make the argument for involuntary treatment, there is no available injectable antidepressants and he has made it clear in the past that he generally does not like taking antidepressants at all. Disposition We will observe overnight, discharge tomorrow if patient does not meet criteria and does not want further treatment. Problem List 1. Ineffective coping. 2. Noncompliance. Initial Treatment Plan 1. Patient was admitted on a 9.39 legal status. 2. Complete history was obtained. 3. With patients permission, family will be contacted and database will be expanded. 4. Patients medication regimen will be reviewed and changed accordingly. 5. Patient will be provided with protected environment. 6. Patient will be treated with individual, group, and milieu therapies. 7. Patient will receive supportive psych-education. 8. Discharge planning will commence immediately. 9. Outpatient follow-up treatment will be strongly recommended. 10. The initial treatment plan will focus initially on: Estimated Length Of Stay Two days. Time Spent 70 minutes with greater than 50% of time spent on counseling/coordination of care. Vital Signs Vital Signs Date Time Temp Pulse Resp B/P (MAP) Pulse Ox O2 Delivery O2 Flow Rate FiO2 03/10/20 06:26 98.7 70 16 100/56 (71) 100 Room Air Medications Scheduled Carbidopa/Levodopa (Carbidopa-Levodopa 25-100 Tab) 1 Each Tablet, 1 TAB PO QID, (Reported) 0800, 1100, 1500, 1900 Carbidopa/Levodopa (Carbidopa-Levo ER 25-100 Tab) 1 Each Tablet.er, 2 TAB PO QHS, (Reported) Tamsulosin HCl (Flomax) 0.4 Mg Capsule, 0.4 MG PO DAILY, (Reported) Venlafaxine HCl (Venlafaxine HCl) 25 Mg Tablet, 12.5 MG PO BID Allergies Coded Allergies: latex (Verified Allergy, Intermediate, swelling, 11/19/19) peanut (Verified Allergy, Intermediate, allergy testing, 11/19/19) hydrocortisone (Verified Allergy, Mild, redness, 03/07/20) A-FIB/CHADSVASC A-FIB History Current/History of A-Fib/PAF?: No JOEL ALBERTO DO March 10, 2020 09:58
[2020-03-10] MEDS: SINEMET**CR** 25/100 TABCR PO SCH (21:00)
[2020-03-11 06:22] VITALS: BP 94/60
[2020-03-11] MEDS: SINEMET 25-100 MG TAB PO SCH ×2 (08:00→11:00)
[2020-03-11] MEDS: TAMSULOSIN 0.4 MG CAP PO SCH (08:11)
[2020-03-11] MEDS: VENLAFAXINE 25 MG TAB PO SCH (08:11)
--- NOTE | 2020-03-11 09:24 | MHDSPDOC ---
[facility] Discharge Summary Discharge Summary DATE OF ADMISSION: March 09, 2020 at 15:39 DATE OF DISCHARGE: 03/11/2020 Discharge Panda Brito MRN: [id number] Date of : N/A Date of Service: 03/11/2020 Diagnoses Unspecified depressive disorder. Likely anhedonia related to poorly controlled Parkinson's. The patient refuses to get treated. Dependent personality. Likely malingering. History of Present Illness The patient is a 64-year-old man with a history of dependent personality disorder and malingering on our unit, presents after being admitted out of an abundance of caution. The patient reports that he had been feeling down and lost some weight; however, he has not been taking his Parkinson's meds and does not want to comply with his medical treatment. Due to the concerns of depression, he was admitted. However, he has been seen multiple times where he generally is uninterested in treatment, without any suicidal or homicidal ideation. On the first day of admission, the patient refuses to meet with me as is expected with his primary presentation as he generally only engages in order to further attention seeking. Consultants Involved Hospitalist/PCP screening Treatment and Progress On The Unit The patient was admitted to the inpatient mental health unit out of an abundance of caution. However, the patient generally did not want to engage in treatment and refused to me with this provider on the first day. The patient generally did not want to take medications and refused most interventions. The patient generally did not engage and was met with again. He refused to try any antidepressants and generally was uninterested. He had been denying any suicidal or homicidal ideation throughout his stay and although he did have trouble caring for himself to a mild degree, it was not significant enough to justify imminent threat. He was generally uninterested in continuing his Parkinson's medications. Discharge Assessment 64-year-old man with a likely history of dependent personality and Parkinson's disorder, who is uninterested in continuing his medical treatment and although having some depressive symptoms, does not wish to try medications . He doesn't meet involuntary criteria as I have difficulty justifying imminent risk based on gravely disabled. He is still able to have his significant other take care of him and thus given he is not interested in any medications or care, he will be discharged. As he has made it clear that he is not interested in further care with us. Although interestingly, he when posed with this wanted to stay, but could not reason out why this was or change his mind about medications. It appeared that he primarily wanted to stay in order to malinger for likely secondary gain secondary to what appears to be a dependent personality disorder and codependent relationship. The patient at this time even if retained against his well and taken to court for treatment of her injection, would have no change in his condition, as there are no injectable antidepressants available and thus treatment cannot be forced on him at this time. He has a long-term neurological disorder that will likely progress and his medication treats the symptoms, but ultimately this will lead to his eventual demise, however, his poor self-care is not posing an imminent threat enough so that can be justified for further involuntary care as mentioned above. Mental Status Examination General: Baseline hygiene Speech: Monotone Thought processes: Linear and logical MSK: Smooth and coordinated gait, no signs of tremors or involuntary orofacial movements Thought content: Preservative on staying at times, but not want to try medicines, refusing to rectify. Abstract reasoning, and computation: Intact Description of associations: Intact Description of abnormal or psychotic thoughts: Denies any suicidal or homicidal ideation. Denies any auditory or visual hallucinations. Does not appear to be responding to internal stimuli. Judgment: Limited Insight: Limited Orientation: Alert and orientated 3 Cognition: Grossly normal Recent and remote memory: Intact Attention span and concentration: Intact Fund of knowledge: Adequate Mood: "Fine" Affect: Euthymic with a full range Follow Up The social work team worked during the predischarge meeting in order to evaluate for further issues of lethality address them fully before discharge. They worked on safety planning with the patient's family members in order to ensure that the patient will have a safe and effective discharge. Time Spent The amount of time spent in the coordination of care for this patient was approximately 45 minutes. Saturday Vital Signs/I&Os Vital Signs Date Time Temp Pulse Resp B/P (MAP) Pulse Ox O2 Delivery O2 Flow Rate FiO2 03/11/20 06:22 97.7 69 16 94/60 (71) 96 Room Air Medications Scheduled Carbidopa/Levodopa (Carbidopa-Levodopa 25-100 Tab) 1 Each Tablet, 1 TAB PO QID, (Reported) 0800, 1100, 1500, 1900 Carbidopa/Levodopa (Carbidopa-Levo ER 25-100 Tab) 1 Each Tablet.er, 2 TAB PO QHS, (Reported) Tamsulosin HCl (Flomax) 0.4 Mg Capsule, 0.4 MG PO DAILY, (Reported) Venlafaxine HCl (Venlafaxine HCl) 25 Mg Tablet, 12.5 MG PO BID for 30 Days, #60 Allergies Coded Allergies: latex (Verified Allergy, Intermediate, swelling, 11/19/19) peanut (Verified Allergy, Intermediate, allergy testing, 11/19/19) hydrocortisone (Verified Allergy, Mild, redness, 03/07/20) JOEL ALBERTO DO March 11, 2020 09:24
== END 2020-03-11 13:05 | disposition home or self-care (01) | DRG 754 ==
LOC: M PSY 15:39
PROVIDERS: ADMIT Psychiatry & Neurology Addiction Medicine; ATTEND Psychiatry & Neurology Addiction Medicine
DX: F32.9 Major depressive disorder, single episode, unspecified (principal); G20 Parkinson's disease; F60.7 Dependent personality disorder; Z76.5 Malingerer [conscious simulation]; R45.84 Anhedonia; Z79.899 Other long term (current) drug therapy; Z91.040 Latex allergy status; Z88.5 Allergy status to narcotic agent; Z91.010 Allergy to peanuts

== ENCOUNTER 2020-05-01 22:27 | Emergency (ER) | payer BC, OTHER ==
[~2020-05-01] VITALS: Ht 172.7 cm; Wt 81.6 kg
[2020-05-01] MEDS ORDERED: NS 1,000 ML IV ONE (23:00)
[2020-05-01 23:13] LABS: HEMATOCRIT 38.6 % (42.0-52.0); HEMOGLOBIN 12.5 g/dl (13.5-17.5); MEAN CORPUSCULAR HEMOGLOBIN 31.6 pg (27.0-33.0); MEAN CORPUSCULAR HGB CONC 32.4 g/dl (32.0-36.5); MEAN CORPUSCULAR VOLUME 97.5 fl (80.0-96.0); PLATELET COUNT, AUTOMATED 150 10^3/uL (150-450); RED BLOOD COUNT 3.96 10^6/uL (4.30-6.10); WHITE BLOOD COUNT 3.9 10^3/uL (4.0-10.0)
[2020-05-01] MEDS ORDERED: MAGNESIUM CITRATE 300 ML BTL PO ONE (23:45)
[2020-05-01 23:55] VITALS: BP 114/82
[2020-05-02 00:16] LABS: ALBUMIN 3.5 GM/DL (3.2-5.2); ALT/SGPT 18 U/L (12-78); BILIRUBIN,DIRECT 0.2 MG/DL (0.0-0.2); BILIRUBIN,TOTAL 0.7 MG/DL (0.2-1.0); BLOOD UREA NITROGEN 17 MG/DL (7-18); CALCIUM LEVEL 8.7 MG/DL (8.8-10.2); CARBON DIOXIDE LEVEL 29 MEQ/L (21-32); CHLORIDE LEVEL 107 MEQ/L (98-107); CREATININE FOR GFR 0.97 MG/DL (0.70-1.30); GLOMERULAR FILTRATION RATE > 60.0 (>49); GLUCOSE, FASTING 84 MG/DL (70-100); SODIUM LEVEL 143 MEQ/L (136-145); TOTAL PROTEIN 6.1 GM/DL (6.4-8.2)
--- NOTE | 2020-05-02 08:45 | REP ---
REASON: Constipation. COMPARISON: KUB of 03/07/2020. Frontal view of the chest is normal. There is no free intraperitoneal air. There is a large amount of stool seen throughout the colon. This obscures the organ silhouettes. There is no intestinal obstruction. There is no change in the osseous structures. IMPRESSION: Large amount of colonic content consistent with a clinical diagnosis of constipation. Electronically Signed by Darvin Dubose DO 05/02/2020 09:55 A
== END 2020-05-01 23:57 | disposition home or self-care (01) ==
LOC: M ED 22:27
DX: K59.00 Constipation, unspecified (principal); G91.2 (Idiopathic) normal pressure hydrocephalus; B19.20 Unspecified viral hepatitis C without hepatic coma; Z79.899 Other long term (current) drug therapy; Z88.8 Allergy status to other drugs, medicaments and biological substances; Z91.010 Allergy to peanuts; Z91.040 Latex allergy status

== ENCOUNTER 2020-11-23 11:31 | Inpatient (IN) | payer BC, OTHER ==
[~2020-11-23] VITALS: Ht 172.7 cm; Wt 59.1 kg
[2020-11-23] MEDS: TAMSULOSIN 0.4 MG CAP PO SCH (09:00)
[~2020-11-23 11:31] MED LIST changes: -QUET1TAB7 PO; +QUET25TA3 PO
[2020-11-23] MEDS ORDERED: QUET25TA3 PO (12:11)
[2020-11-23] MEDS ORDERED: MIRT1TAB15 PO (12:11)
[2020-11-23 12:24] LABS: BASO % 0.5 % (0.0-1.0); EOS % 0.5 % (0.0-3.0); HEMATOCRIT 36.8 % (42.0-52.0); LYMPH # 0.9 10^3/uL (1.5-5.0); LYMPH % 13.9 % (24.0-44.0); MEAN CORPUSCULAR HEMOGLOBIN 30.9 pg (27.0-33.0); MEAN CORPUSCULAR HGB CONC 32.6 g/dl (32.0-36.5); MEAN CORPUSCULAR VOLUME 94.8 fl (80.0-96.0); MONO # 0.7 10^3/uL (0.0-0.8); MONO % 10.3 % (0.0-5.0); NEUTROPHILS # 4.8 10^3/uL (1.5-8.5); NEUTROPHILS % 74.5 % (36.0-66.0); PLATELET COUNT, AUTOMATED 202 10^3/uL (150-450); RED BLOOD COUNT 3.88 10^6/uL (4.30-6.10); WHITE BLOOD COUNT 6.5 10^3/uL (4.0-10.0)
--- OUTSIDE RECORDS SUMMARY | 2020-11-23 12:25 | CCD ---
Author Author [facility] Organization [facility] Address Unknown Phone Unavailable Care Team Providers Care Chest Painting And Sealing Supervisor Name Role Phone Joy Quiles MD Unavailable Unavailable Joy Quiles MD Unavailable Unavailable Joy Quiles MD Unavailable Unavailable Joy Quiles MD Unavailable Unavailable Joy Quiles MD Unavailable Unavailable Joy Quiles MD Unavailable Unavailable Joy Quiles MD Unavailable Unavailable Joy Quiles MD Unavailable Unavailable Joy Quiles MD Unavailable Unavailable Joy Quiles MD Unavailable Unavailable Joy Quiles MD Unavailable Unavailable Joy Quiles MD Unavailable Unavailable Joy Quiles MD Unavailable Unavailable Joy Quiles MD Unavailable Unavailable Joy Quiles MD Unavailable Unavailable Joy Quiles MD Unavailable Unavailable Joy Quiles MD Unavailable Unavailable Joy Quiles MD Unavailable Unavailable Joy Quiles MD Unavailable Unavailable Joy Quiles MD Unavailable Unavailable Joy Quiles MD Unavailable Unavailable Joy Quiles MD Unavailable Unavailable Joy Quiles MD Unavailable Unavailable Joy Quiles MD Unavailable Unavailable Joy Quiles MD Unavailable Unavailable Joy Quiles MD Unavailable Unavailable Joy Quiles MD Unavailable Unavailable Joy Quiles MD Unavailable Unavailable Joy Quiles MD Unavailable Unavailable Joy Quiles MD Unavailable Unavailable Joy Quiles MD Unavailable Unavailable Joy Quiles MD Unavailable Unavailable Joy Quiles MD Unavailable Unavailable Joy Quiles MD Unavailable Unavailable Joy Quiles MD Unavailable Unavailable Joy Quiles MD Unavailable Unavailable Joy Quiles MD Unavailable Unavailable Joy Qulies MD Unavailable Unavailable Joy Quiles MD Unavailable Unavailable Joy Quiles MD Unavailable Unavailable Joy Quiles MD Unavailable Unavailable Joy Quiles MD Unavailable Unavailable Joy Quiles MD Unavailable Unavailable Joy Quiles MD Unavailable Unavailable Joy Quiles MD Unavailable Unavailable Joy Quiles MD Unavailable Unavailable Joy Quiles MD Unavailable Unavailable Joy Quiles MD Unavailable Unavailable Joy Quiles MD Unavailable Unavailable Joy Quiles MD Unavailable Unavailable Joy Quiles MD Unavailable Unavailable Joy Quiles MD Unavailable Unavailable Joy Quiles MD Unavailable Unavailable Joy Quiles MD Unavailable Unavailable Joy Quiles MD Unavailable Unavailable Joy Quiles MD Unavailable Unavailable Joy Quiles MD Unavailable Unavailable Joy Quiles MD Unavailable Unavailable Jyo Quiles MD Unavailable Unavailable Joy Quiles MD Unavailable Unavailable Joy Quiles MD Unavailable Unavailable Joy Quiles MD Unavailable Unavailable Joy Quiles MD Unavailable Unavailable Joy Quiles MD Unavailable Unavailable Joy Quiles MD Unavailable Unavailable Joy Quiles MD Unavailable Unavailable Joy Quiles MD Unavailable Unavailable Joy Quiles MD Unavailable Unavailable Joy Quiles MD Unavailable Unavailable Joy Quiles MD Unavailable Unavailable Joy Quiles MD Unavailable Unavailable Joy Quiles MD Unavailable Unavailable Joy Quiles MD Unavailable Unavailable Joy Quiles MD Unavailable Unavailable Joy Quiles MD Unavailable Unavailable Joy Quiles MD Unavailable Unavailable Joy Quiles MD Unavailable Unavailable Joy Quiles MD Unavailable Unavailable Joy Quiles MD Unavailable Unavailable Joy Quiles MD Unavailable Unavailable Joy Quiles MD Unavailable Unavailable Joy Quiles MD Unavailable Unavailable Joy Quiles MD Unavailable Unavailable Joy Quiles MD Unavailable Unavailable Joy Quiles MD Unavailable Unavailable Joy Quiles MD Unavailable Unavailable Joy Quiles MD Unavailable Unavailable Joy Quiles MD Unavailable Unavailable Joy Quiles MD Unavailable Unavailable Sara Jose Unavailable Ari Lundy MD Unavailable Unavailable Ari Lundy MD Unavailable Unavailable Ari Lundy MD Unavailable Unavailable Ari Lundy MD Unavailable Unavailable Ari Lundy MD Unavailable Unavailable Ari Lundy MD Unavailable Unavailable Ari Lundy MD Unavailable Unavailable Ari Lundy MD Unavailable Unavailable Ari Lundy MD Unavailable Unavailable Ari Lundy MD Unavailable Unavailable Ari Lundy MD Unavailable Unavailable Ali, Ari LÓPEZ Unavailable Unavailable AliAri MD Unavailable Unavailable Ali, Ari LÓPEZ Unavailable Unavailable Ali, Ari LÓPEZ Unavailable Unavailable AliAri MD Unavailable Unavailable Ali, Ari LÓPEZ Unavailable Unavailable Ali, Ari LÓPEZ Unavailable Unavailable Ali, Ari LÓPEZ Unavailable Unavailable Ali, Ari LÓPEZ Unavailable Unavailable Ali, Ari MD Unavailable Unavailable Ali, Ari LÓPEZ Unavailable Unavailable Ali, Ari LÓPEZ Unavailable Unavailable Ali, Ari LÓPEZ Unavailable Unavailable Ali, Ari LÓPEZ Unavailable Unavailable Ali, Ari LÓPEZ Unavailable Unavailable Ali, Ari LPÓEZ Unavailable Unavailable Ali, Ari LÓPEZ Unavailable Unavailable Ali, Ari LÓPEZ Unavailable Unavailable Ali, Ari LÓPEZ Unavailable Unavailable Ali, Ari LÓPEZ Unavailable Unavailable Ali, Ari LÓPEZ Unavailable Unavailable Ali, Ari MD Unavailable Unavailable Ali, Ari LÓPEZ Unavailable Unavailable Ali, Ari LÓPEZ Unavailable Unavailable Ali, Ari LÓPEZ Unavailable Unavailable Ali, Ari LÓPEZ Unavailable Unavailable Ali, Ari LÓPEZ Unavailable Unavailable Ali, Ari LÓPEZ Unavailable Unavailable Ali, Ari LÓPEZ Unavailable Unavailable Ali, Ari LÓPEZ Unavailable Unavailable Ali, Ari LÓPEZ Unavailable Unavailable Ali, Ari LÓPEZ Unavailable Unavailable Ali, Ari LÓPEZ Unavailable Unavailable Ali, Ari LÓPEZ Unavailable Unavailable Ali, Ari LÓPEZ Unavailable Unavailable Ali, Ari LÓPEZ Unavailable Unavailable AliAri MD Unavailable Unavailable AliAri MD Unavailable Unavailable Pau CLARK MD Unavailable Unavailable Pau CLARK MD Unavailable Unavailable Pau CLARK MD Unavailable Unavailable Pau CLARK MD Unavailable Unavailable Pau CLARK MD Unavailable Unavailable Pau CLARK MD Unavailable Unavailable Pau CLARK MD Unavailable Unavailable Pau CLARK MD Unavailable Unavailable Pau CLARK MD Unavailable Unavailable Pau CLARK MD Unavailable Unavailable Pau CLARK MD Unavailable Unavailable Pau CLARK MD Unavailable Unavailable Pau CLARK MD Unavailable Unavailable Pau CLARK MD Unavailable Unavailable Pau CLARK MD Unavailable Unavailable Pau CLARK MD Unavailable Unavailable Pau CLARK MD Unavailable Unavailable Pau CLARK MD Unavailable Unavailable Pau CLARK MD Unavailable Unavailable Pau CLARK MD Unavailable Unavailable Pau CLARK MD Unavailable Unavailable Pau CLARK MD Unavailable Unavailable MIHAILA, L CAMILLE MD Unavailable Unavailable MIHAILA, L CAMILLE MD Unavailable Unavailable MIHAILA, L CAMILLE MD Unavailable Unavailable MIHAILA, L CAMILLE MD Unavailable Unavailable MIHAILA, L CAMILLE MD Unavailable Unavailable MIHAILA, L CAMILLE MD Unavailable Unavailable MIHAILA, L CAMILLE MD Unavailable Unavailable MIHAILA, L CAMILLE MD Unavailable Unavailable MIHAILA, L CAMILLE MD Unavailable Unavailable MIHAILA, L CAMILLE MD Unavailable Unavailable MIHAILA, L CAMILLE MD Unavailable Unavailable MIHAILA, L CAMILLE MD Unavailable Unavailable MIHAILA, L CAMILLE MD Unavailable Unavailable MIHAILA, L CAMILLE MD Unavailable Unavailable MIHAILA, L CAMILLE MD Unavailable Unavailable MIHAILA, L CAMILLE MD Unavailable Unavailable MIHAILA, L CAMILLE MD Unavailable Unavailable MIHAILA, L CAMILLE MD Unavailable Unavailable MIHAILA, L CAMILLE MD Unavailable Unavailable MIHAILA, L CAMILLE MD Unavailable Unavailable MIHAILA, L CAMILLE MD Unavailable Unavailable MIHAILA, L CAMILLE MD Unavailable Unavailable MIHAILA, L CAMILLE MD Unavailable Unavailable MIHAILA, L CAMILLE MD Unavailable Unavailable MIHAILA, L CAMILLE MD Unavailable Unavailable MIHAILA, L CAMILLE MD Unavailable Unavailable MIHAILA, L CAMILLE MD Unavailable Unavailable MIHAILA, L CAMILLE MD Unavailable Unavailable MIHAILA, L CAMILLE MD Unavailable Unavailable MIHAILA, L CAMILLE MD Unavailable Unavailable MIHAILA, L CAMILLE MD Unavailable Unavailable MIHAILA, L CAMILLE MD Unavailable Unavailable MIHAILA, L CAMILLE MD Unavailable Unavailable Re-disclosure Warning The records that you are about to access may contain information from federally-assisted alcohol or drug abuse programs. If such information is present, then the following federally mandated warning applies: This information has been disclosed to you from records protected by federal confidentiality rules (42 CFR part 2). The federal rules prohibit you from making any further disclosure of this information unless further disclosure is expressly permitted by the written consent of the person to whom it pertains or as otherwise permitted by 42 CFR part 2. A general authorization for the release of medical or other information is NOT sufficient for this purpose. The Federal rules restrict any use of the information to criminally investigate or prosecute any alcohol or drug abuse patient.The records that you are about to access may contain highly sensitive health information, the redisclosure of which is protected by Article 27-F of the [facility] Public Health law. If you continue you may have access to information: Regarding HIV / AIDS; Provided by facilities licensed or operated by the [facility] Office of Mental Health; or Provided by the [facility] Office for People With Developmental Disabilities. If such information is present, then the following [facility] mandated warning applies: This information has been disclosed to you from confidential records which are protected by state law. State law prohibits you from making any further disclosure of this information without the specific written consent of the person to whom it pertains, or as otherwise permitted by law. Any unauthorized further disclosure in violation of state law may result in a fine or penitentiary sentence or both. A general authorization for the release of medical or other information is NOT sufficient authorization for further disc losure. Family History Family Member Name Family Member Gender Family Member Status Date o f Status Description Data Source(s) Unknown Unknown Problem [facility] ([facility]) Unknown Unknown Problem [facility] ([facility]) Encounters Encounter Providers Location Date Indications Data Source(s ) Outpatient Attender: Dwight Quiles MD 04/28/2020 10:31:[address] [facility] Outpatient Attender: CAMILLE CLARK MD 04/19/2020 12:00:00 AM [facility] Outpatient Attender: Dwight Quiles MD 04/01/2020 12:02:[address] [facility] Outpatient Attender: Dwight Quiles MD 03/31/2020 11:50:[address] [facility] 03/31/2020 11:49:[address] [facility] 03/31/2020 11:48:[address] [facility] Outpatient Attender: Ari Lundy MD Main office - [place] 02/04/2020 02:00:00 PM EDT [facility] ([facility]) TEMPMHCTelemed-HOSPDCVTNP Attender: [facility] 01/18/2020 02:00:00 AM EDT - 01/18/2020 02:00:00 AM EDT [facility] ([facility]) Attender: Sara Jose 01/18/2020 12:00:00 AM EDT [facility] ([facility]) Extended Individual Psych[facility] - 45 [facility] 01/13/2020 01:00:00 AM EDT - 01/13/2020 01:00:00 AM EDT [facility] ([facility]) Attender: Sara Jose 01/13/2020 12:00:00 AM EDT [facility] ([facility]) Attender: Sara Pratherh 01/13/2020 12:00:00 AM EDT [facility] ([facility]) Outpatient Attender: Ari Lundy MD Main office - [place] 11/04/2019 02:00:00 PM EST [facility] ([facility] ) Medications Medication Brand Name Start Date Product Form Dose Route Admi nistrative Instructions Pharmacy Instructions Status Indications Reaction Description Data Source(s) Carbidopa 50 MG / Levodopa 200 MG Extended Release Ora l Tablet Carbidopa- Levodopa ER 11/13/2019 12:00:00 AM EST ORAL active [facility] ([facility] ) Clonazepam 0.5 MG Oral Tablet Clonazepam 11/13/2019 12:00:00 AM EST ORAL active [facility] ([facility] ) Fluoxetine 10 MG Oral Capsule Fluoxetine HCL 11/04/2019 12:00:[address] ORAL completed [facility] ([facility] ) Alprazolam 0.5 MG Oral Tablet Alprazolam 10/07/2019 12:00:00 AM EST ORAL active [facility] ([facility] ) Sertraline 25 MG Oral Tablet Sertraline HCL 09/25/2019 12:00:00 AM EST ORAL completed [facility] ([facility] ) Insurance Providers Payer name Policy type / Coverage type Policy ID Covered constitution party ID Covered constitution party's relationship to elam Policy Elam Plan Information [facility] [id number] SP [id number] [facility] [id number] SP [id number] [facility] [id number] SP [id number] [employer] E[employer] JEN DIV [id number] SP [id number] [employer] E[employer] JEN DIV [id number] SP [id number] [employer] E[employer] JEN DIV [id number] SP [id number] [place] Plan P [id number] S [id number] [place] Plan P [id number] S [id number] [facility] [id number] SP [id number] [place] [facility] Plan Commercial [id number] Self [id number] ANSI-Commercial [id number] ANSI-Commercial [id number] [facility] [id number] S [id number] ANSI-Commercial [id number] ANSI-Commercial [id number] [facility] [place] Commercial [id number] Self [id number] [facility] [id number] SP [id number] [facility] [place] Commercial [id number] Self [id number] Problems, Conditions, and Diagnoses Code Display Name Description Problem Type Effective Dates Data Source(s) [id number] Diffuse Lewy body disease Diffuse Lewy body disease Pr oblem 02/04/2020 12:00:00 AM EDT [facility] ([facility]) F43.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 Adjustment Disorder, With mixed disturbance of emotions and conduct Condition 01/18/2020 12:00:00 AM EDT [facility] ([facility]) Surgeries/Procedures Procedure Description Date Indications Data Source(s) TEMPMHCTelemed-HOSPDCVTNP 01/18/2020 12: 00:00 AM EDT - 01/18/2020 12:00:00 AM EDT [facility] ([facility]) TEMPMHCTelemed-HOSPDCVTNP 01/18/2020 12:00:00 AM EDT [facility] ([facility]) Extended Individual Psychotherapy - 45 min 01/13/2020 12:00:00 AM EDT - 01/13/2020 12:00:00 AM EDT [facility] ([facility]) Extended Individual Psychotherapy - 45 min 0 12:00:00 AM EDT [facility] ([facility]) Extended Individual Psychotherapy - 45 min 01/13/2020 12:00:00 AM EDT - 01/13/2020 12:00:00 AM EDT [facility] ([facility]) MRI Spine Thoracic W/O Contrast 10/17/2019 12:00:00 AM EST [facility] ([facility]) MRI Spine Thoracic W/O Contrast 10/17/2019 12:00:00 AM EST [facility] ([facility]) Social History Code Duration Value Status Description Data Source(s ) Smoking 01/18/2020 12:00:00 AM EDT Unknown if ever smoked comp leted Unknown if ever smoked [facility] ([facility]) Smoking 01/13/2020 12:00:00 AM EDT Unknown if ever smoked comp leted Unknown if ever smoked [facility] ([facility])
[2020-11-23 12:46] LABS: OSMOLALITY SERUM 310 MOSM/KG (280-301)
[2020-11-23 12:47] LABS: AMPHETAMINES LEVEL URINE NEGATIVE (NEGATIVE); BARBITURATES URINE NEGATIVE (NEGATIVE); BENZODIAZEPINES URINE NEGATIVE (NEGATIVE); CANNABINOIDS URINE NEGATIVE (NEGATIVE); COCAINE METABOLITE URINE NEGATIVE (NEGATIVE); METHADONE URINE NEGATIVE (NEGATIVE); OPIATES URINE NEGATIVE (NEGATIVE); PHENCYCLIDINE URINE NEGATIVE (NEGATIVE)
[2020-11-23 12:56] LABS: RSV AMPLIFICATION NEGATIVE (NEGATIVE)
--- NOTE | 2020-11-23 13:02 | REP ---
INDICATION: Altered Mental Status COMPARISON: 03/07/2020 TECHNIQUE: Portable AP view of the chest FINDINGS: The mediastinum and cardiac silhouette are stable and within normal limits for portable technique. The lung carbajal are clear without acute consolidation, effusion, or pneumothorax. Skeletal structures are intact. IMPRESSION: No acute cardiopulmonary process appreciated. <Electronically signed by Osito Davison > 11/23/20 [id number]
[2020-11-23 13:05] LABS: ALBUMIN 4.4 GM/DL (3.2-5.2); ALT/SGPT 23 U/L (12-78); BILIRUBIN,DIRECT 0.3 MG/DL (0.0-0.2); BILIRUBIN,TOTAL 1.3 MG/DL (0.2-1.0); BLOOD UREA NITROGEN 38 MG/DL (7-18); CALCIUM LEVEL 9.6 MG/DL (8.8-10.2); CARBON DIOXIDE LEVEL 26 MEQ/L (21-32); CHLORIDE LEVEL 109 MEQ/L (98-107); CPK CREATINE PHOSPHOKINASE 920 U/L (39-308); CREATININE FOR GFR 1.14 MG/DL (0.70-1.30); ETHYL ALCOHOL (ETHANOL) < 0.003 % (0.000-0.010); GLOMERULAR FILTRATION RATE > 60.0 (>49); GLUCOSE, FASTING 104 MG/DL (70-100); MB/CK RELATIVE INDEX 1.41 (< OR =4); POTASSIUM SERUM 4.3 MEQ/L (3.5-5.1); SODIUM LEVEL 145 MEQ/L (136-145); TOTAL PROTEIN 7.4 GM/DL (6.4-8.2); TROPONIN I < 0.02 NG/ML (< 0.10)
[2020-11-23] MEDS ORDERED: cefTRIAXone SOD 1 GM in D5W MINI-BAG PLUS 50 ML IV ONE (14:00)
[2020-11-23] MEDS ORDERED: NS 1,000 ML IV ONE (14:00)
[2020-11-23] MEDS ORDERED: MIRT-62 PO (14:02)
[2020-11-23] MEDS ORDERED: VENL1TAB35 PO (14:02)
[2020-11-23] MEDS ORDERED: PATIENT COMMENT (14:03)
--- NOTE | 2020-11-23 14:15 | REP ---
INDICATION: Altered Mental Status COMPARISON: 12/28/2019 TECHNIQUE: Axial noncontrast images from the skull base to the thoracic inlet with coronal reformations. This CT examination was performed using the following dose reduction techniques: Automated exposure control, adjustment of mA and/or kv according to the patient's size, and use of iterative reconstruction technique. FINDINGS: Examination through the frontal lobes and middle cranial fossa are significantly limited due to motion artifact and essentially nondiagnostic. Underlying age-related degenerative changes are appreciated and similar to prior examination. Mass and or hemorrhage cannot definitively be excluded based on current examination. Visualized calvarium is intact. Visualized sinuses and mastoid air cells are clear. IMPRESSION: Nearly nondiagnostic examination due to artifact and poor positioning. Age-related atrophy and microvascular ischemic changes noted. Underlying hemorrhage or mass related to the anterior and middle cranial fossa cannot be excluded. <Electronically signed by Osito Davison > 11/23/20 [id number]
[2020-11-23] MEDS ORDERED: ACETAMINOPHEN TAB 650MG DOSE (2X325MG) PO PRN (15:30)
--- OUTSIDE RECORDS SUMMARY | 2020-11-23 15:30 | CCD ---
Author Author [facility] Organization [facility] Address Unknown Phone Unavailable Care Team Providers Care Drainage Engineer Name Role Phone Joy Quiles MD Unavailable [...] is protected by Article 27-F of the [facility] Public Health law. If you continue you may have access to information: Regarding HIV / AIDS; Provided by facilities licensed or operated by the [facility] Office of Mental Health; or Provided by the [facility] Office for People With Developmental Disabilities. If such information is present, then the following [facility] mandated warning applies: This information has been [...] law may result in a fine or halfway sentence or both. A general authorization for the release of medical or other information is NOT sufficient authorization for further disc losure. Family History Family Member Name Family Member Gender Family Member Status Date o f Status Description Data Source(s) Unknown Unknown Problem [facility] ([facility]) Unknown Unknown Problem [facility] ([facility]) Encounters Encounter Providers Location Date Indications Data Source(s ) Outpatient Attender: Dwight Quiles MD 04/28/2020 10:31:01 AM EDT [facility] Outpatient Attender: CAMILLE CLARK MD 04/19/2020 12:00:00 AM [facility] Outpatient Attender: Dwight Quiles MD 04/01/2020 12:02:18 AM EDT [facility] Outpatient Attender: Dwight Quiles MD 03/31/2020 11:50:00 AM EDT [facility] Outpatient [facility] 03/31/2020 11:49:01 AM EDT [facility] Outpatient [facility] 03/31/2020 11:48:00 AM EDT [facility] Outpatient Attender: Ari Lundy MD Main office - [place] 02/04/2020 02:00:00 PM EDT [facility] ([facility]) TEMPMHCTelemed-HOSPDCVTNP Attender: [facility] 01/18/2020 02:00:00 AM EDT - 01/18/2020 02:00:00 AM EDT [facility] ([facility]) Attender: Sara Jose 01/18/2020 12:00:00 AM EDT [facility] ([facility]) Extended Individual Psychotherapy - 45 min Attender: Isadora Jose [facility] 01/13/2020 01:00:00 AM EDT - 01/13/2020 01:00:00 AM EDT [facility] ([facility]) Attender: Sara Jose 01/13/2020 12:00:00 AM EDT [facility] ([facility]) Attender: Sara Pratherh 01/13/2020 12:00:00 AM EDT [facility] ([facility]) Outpatient Attender: Ari Lundy MD Main office - [place] 11/04/2019 02:00:00 PM EST [facility] ([facility] ) Medications Medication Brand Name Start Date Product Form Dose Route Admi nistrative Instructions Pharmacy Instructions Status Indications Reaction Description Data Source(s) Carbidopa 50 MG / Levodopa 200 MG Extended Release Ora l Tablet Carbidopa- Levodopa ER 11/13/2019 12:00:00 AM EST ORAL active [facility] ([facility] ) Clonazepam 0.5 MG Oral Tablet Clonazepam 11/13/2019 12:00:00 AM EST ORAL active [facility] ([facility] ) Fluoxetine 10 MG Oral Capsule Fluoxetine HCL 11/04/2019 12:00:[address] ORAL completed [facility] ([facility] ) Alprazolam 0.5 MG Oral Tablet Alprazolam 10/07/2019 12:00:00 AM EST ORAL active [facility] ([facility] ) Sertraline 25 MG Oral Tablet Sertraline HCL 09/25/2019 12:00:00 AM EST ORAL completed [facility] ([facility] ) Insurance Providers Payer name Policy type / Coverage type Policy ID Covered democrat ID Covered democrat's relationship to elam Policy Elam Plan Information BCBS EMPIRE JEN DIV [id number] SP [id number] [facility] [id number] SP [id number] [facility] [id number] SP [id number] [facility] [id number] SP [id number] BCBS EMPIRE JEN DIV [id number] SP [id number] BCBS EMPIRE JEN DIV [id number] SP [id number] [place] Plan P [id number] S [id number] [place] Plan P [id number] S [id number] [facility] [id number] SP [id number] [facility] Plan Commercial [id number] Self [id number] ANSI-Commercial [id number] ANSI-Commercial [id number] [facility] [employer] HEA [id number] S [id number] ANSI-Commercial [id number] ANSI-Commercial [id number] [facility] [place] Commercial [id number] Self [id number] [facility] [id number] SP [id number] [facility] [place] Commercial [id number] Self [id number] Problems, Conditions, and Diagnoses Code Display Name Description Problem Type Effective Dates Data Source(s) 92887805 Diffuse Lewy body disease Diffuse Lewy body disease Pr oblem 02/04/2020 12:00:00 AM EDT [facility] ([facility]) F43.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 Adjustment Disorder, With mixed disturbance of emotions and conduct Condition 01/18/2020 12:00:00 AM EDT [facility] ([facility]) Surgeries/Procedures Procedure Description Date Indications Data Source(s) TEMPMHCTelemed-HOSPDCVTNP 01/18/2020 12: 00:00 AM EDT - 01/18/2020 12:00:00 AM EDT [facility] ([facility]) TEMPMHCTelemed-HOSPDCVTNP 01/18/2020 12:00:00 AM EDT [facility] ([facility]) Extended Individual Psychotherapy - 45 min 01/13/2020 12:00:00 AM EDT - 01/13/2020 12:00:00 AM EDT [facility] ([facility]) Extended Individual Psychotherapy - 45 min 0 12:00:00 AM EDT [facility] ([facility]) Extended Individual Psychotherapy - 45 min 01/13/2020 12:00:00 AM EDT - 01/13/2020 12:00:00 AM EDT [facility] ([facility]) MRI Spine Thoracic W/O Contrast 10/17/2019 12:00:00 AM EST [facility] ([facility]) MRI Spine Thoracic W/O Contrast 10/17/2019 12:00:00 AM EST [facility] ([facility]) Social History Code Duration Value Status Description Data Source(s ) Smoking 01/18/2020 12:00:00 AM EDT Unknown if ever smoked comp leted Unknown if ever smoked [facility] ([facility]) Smoking 01/13/2020 12:00:00 AM EDT Unknown if ever smoked comp leted Unknown if ever smoked [facility] ([facility])
[2020-11-23] MEDS ORDERED: PILL CUTTER 1 EACH XX PRN (15:45)
--- NOTE | 2020-11-23 15:45 | HPEPDOC ---
General Date of Admission Nov 23, 2020 at 15:18 Date of Service: Nov 23, 2020 Chief Complaint The patient is a 65-year-old male admitted with a reason for visit of Parkinson Disease. 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 Patient is a poor historian, he stated that he lives alone and he cannot take care about himself. He was noncompliant to Parkinson treatment. In ER patient was found to have hemoglobin 12, normal lactic acid, CPK 920, normal troponin. UA shows pyuria. Chest x-ray showed no acute cardiopulmonary process. Home Medications Scheduled Carbidopa/Levodopa (Carbidopa-Levodopa 25-100 Tab) 1 Each Tablet, 1 TAB PO QID, (Reported) 0800, 1100, 1500, 1900 Carbidopa/Levodopa (Carbidopa-Levo ER 25-100 Tab) 1 Each Tablet.er, 2 TAB PO QHS, (Reported) Mirtazapine (Remeron) 15 Mg Tablet, 15 MG PO QHS, (Reported) Quetiapine Fumarate (Quetiapine Fumarate) 25 Mg Tablet, 25 MG PO QHS, (Reported) Tamsulosin HCl (Flomax) 0.4 Mg Capsule, 0.4 MG PO DAILY, (Reported) Venlafaxine HCl (Venlafaxine HCl) 25 Mg Tablet, 12.5 MG PO BID, (Reported) Miscellaneous Medications [Patient Comment] UB , (Reported) UNABLE TO VERIFY MEDICATIONS WITH PATIENT OR FAMILY. 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 Acute kidney injury due to mild rhabdomyolysis. Urine retention. Chronic constipation. Major depression, delusional disorder, somatic disorder, rule out dependent personality disorder. Hyperlipidemia. Allergic rhinitis. Glaucoma. Surgical History Prior colonoscopy. Status post bilateral eye surgery. Right eye implant. Family History Mother with diabetes. Most of the family lives in [place]. A sister lives in [place]. Patient has been three times with a son that he is not in touch with. Social History * Smoker: Denies Alcohol: Denies Drugs: denies A-FIB/CHADSVASC A-FIB History Current/History of A-Fib/PAF?: No Current PO Anticoag Therapy: No Review of Systems Constitutional: Reports: Weakness, Fatigue; Denies: Chills, Fever Eyes: Denies: Pain ENT: Denies: Head Aches Skin: Denies: Rash Pulmonary: Denies: Dyspnea, Cough Cardiovascular: Denies: Chest Pain Gastrointestinal: Denies: Vomiting Genitourinary: Reports: Dysuria Hematologic: Denies: Bruising Endocrine: Denies: Polydipsia Musculoskeletal: Denies: Neck Pain Neurological: Denies: Weakness Psych: Reports: Anxiety, Depression Physical Examination General Exam: Positive: Alert, Cooperative Eye Exam: Positive: PERRLA ENT Exam: Positive: Atraumatic Neck Exam: Positive: Supple; Negative: JVD Chest Exam: Positive: Clear to auscultation Heart Exam: Positive: Rate Normal Telemetry: Positive: No significant arrhythmia Abdomen Exam: Positive: Normal bowel sounds Extremity Exam: Negative: Clubbing Skin Exam: Positive: Nl turgor and temperature Neuro Exam: Positive: Cranial Nerves 3-12 NL, Reflexes 2+ Psych Exam: Positive: Anxiety Vital Signs Vital Signs Date Time Temp Pulse Resp B/P (MAP) Pulse Ox O2 Delivery O2 Flow Rate FiO2 11/23/20 12:28 97.5 11/23/20 12:16 74 99 11/23/20 12:15 113/74 (87) 11/23/20 12:02 18 Room Air Laboratory Data Labs 24H Laboratory Tests 2 11/23/20 12:08: Immature Granulocyte % (Auto) 0.3, Neutrophils (%) (Auto) 74.5H, Lymphocytes (%) (Auto) 13.9L, Monocytes (%) (Auto) 10.3H, Eosinophils (%) (Auto) 0.5, Basophils (%) (Auto) 0.5, Neutrophils # (Auto) 4.8, Lymphocytes # (Auto) 0.9L, Monocytes # (Auto) 0.7, Eosinophils # (Auto) 0.0, Basophils # (Auto) 0.0, Nucleated Red Blood Cells % (auto) 0.0, Urine Color YELLOW, Urine Appearance CLOUDYH, Urine pH 5.0, Urine Specific [place] 1.026, Urine Protein 1+H, Urine Glucose (UA) NEGATIVE, Urine Ketones 1+H, Urine Blood 3+H, Urine Nitrite POSITIVEH, Urine Bilirubin NEGATIVE, Urine Urobilinogen 0.2, Urine Leukocyte Esterase 3+H, Urine WBC (Auto) TNTCH, Urine RBC (Auto) 9H, Urine Hyaline Casts (Auto) 0, Urine Bacteria (Auto) 3+H, Urine Squamous Epithelial Cells 0, Urine Mucus (Auto) LARGE, Urine Sperm (Auto) , Anion Gap 10, Glomerular Filtration Rate > 60.0, Osmolality 310H, Calcium Level 9.6, Total Bilirubin 1.3H, Direct Bilirubin 0.3H, Aspartate Amino Transf (AST/SGOT) 26, Alanine Aminotransferase (ALT/SGPT) 23, Alkaline Phosphatase 77, Ammonia < 10, Total Creatine Kinase 920H, Creatine Kinase MB 13.0H, Creatine Kinase MB Relative Index 1.41, Troponin I < 0.02, Total Protein 7.4, Albumin 4.4, Albumin/Globulin Ratio 1.5, Thyroid Stimulating Hormone (TSH) 3.190, Ethyl Alcohol Level < 0.003, Coronavirus (COVID-19)(PCR) NEGATIVE, Influenza Type A (RT-PCR) NEGATIVE, Influenza Type B (RT-PCR) NEGATIVE, Respiratory Syncytial Virus (PCR) NEGATIVE 11/23/20 12:09: Lactic Acid Level 1.7, Urine Opiates Screen NEGATIVE, Urine Methadone Screen NEGATIVE, Urine Barbiturates Screen NEGATIVE, Urine Phencyclidine Screen NEGATI VE, Urine Amphetamines Screen NEGATIVE, Urine Benzodiazepines Screen NEGATIVE, Urine Cocaine Metabolite Screen NEGATIVE, Urine Cannabinoids Screen NEGATIVE CBC/BMP Laboratory Tests 11/23/20 12:08 Microbiology Microbiology 11/23/20 Blood Culture, Received Pending 11/23/20 Urine Culture, Received Pending 11/23/20 Blood Culture, Received Pending Assessment/Plan Patient 65 years old male with past history of suicidal ideation, 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 Patient is a poor historian, he stated that he lives alone and he cannot take care about himself. He was noncompliant to Parkinson treatment. In ER patient was found to have hemoglobin 12, normal lactic acid, CPK 920, normal troponin. UA shows pyuria. Chest x-ray showed no acute cardiopulmonary process. Problems (1) Parkinson disease Status: Acute Problem Text: Patient was not compliant with his treatment for Parkinson's diseases Restarted home meds (2) UTI (urinary tract infection) Status: Acute Problem Text: Ceftriaxone IV Patient has pyuria and altered mental status (3) Failure to thrive in adult Status: Acute Problem Text: PT/OT Most likely patient will need placement Plan / VTE VTE Prophylaxis Ordered?: Yes JUAN M TAYLOR DO Nov 23, 2020 15:45
[2020-11-23 17:37] VITALS: BP 116/70
[2020-11-23] MEDS: SINEMET 25-100 MG TAB PO SCH (18:52)
[2020-11-23] MEDS: SINEMET**CR** 25/100 TABCR PO SCH (21:00)
[2020-11-23] MEDS: QUEtiapine FUMARATE 25 MG TAB PO SCH (21:00)
[2020-11-23] MEDS: VENLAFAXINE 25 MG TAB PO SCH (21:00)
[2020-11-23 22:00] VITALS: BP 114/71
[2020-11-24] MEDS: cefTRIAXone SOD 2 GM in D5W MINI-BAG PLUS 50 ML IV SCH (01:08)
[2020-11-24 06:00] VITALS: BP 116/70
[2020-11-24 06:34] LABS: HEMATOCRIT 35.9 % (42.0-52.0); HEMOGLOBIN 11.2 g/dl (13.5-17.5); MEAN CORPUSCULAR HEMOGLOBIN 30.9 pg (27.0-33.0); MEAN CORPUSCULAR HGB CONC 31.2 g/dl (32.0-36.5); MEAN CORPUSCULAR VOLUME 99.2 fl (80.0-96.0); PLATELET COUNT, AUTOMATED 175 10^3/uL (150-450); RED BLOOD COUNT 3.62 10^6/uL (4.30-6.10); WHITE BLOOD COUNT 5.9 10^3/uL (4.0-10.0)
[2020-11-24 06:47] LABS: ALBUMIN 3.5 GM/DL (3.2-5.2); ALT/SGPT 19 U/L (12-78); BILIRUBIN,TOTAL 0.9 MG/DL (0.2-1.0); BLOOD UREA NITROGEN 26 MG/DL (7-18); CALCIUM LEVEL 8.7 MG/DL (8.8-10.2); CARBON DIOXIDE LEVEL 24 MEQ/L (21-32); CHLORIDE LEVEL 114 MEQ/L (98-107); CREATININE FOR GFR 0.82 MG/DL (0.70-1.30); GLOMERULAR FILTRATION RATE > 60.0 (>49); GLUCOSE, FASTING 80 MG/DL (70-100); MAGNESIUM LEVEL 2.1 MG/DL (1.8-2.4); POTASSIUM SERUM 3.7 MEQ/L (3.5-5.1); SODIUM LEVEL 147 MEQ/L (136-145); TOTAL PROTEIN 6.7 GM/DL (6.4-8.2)
--- NOTE | 2020-11-24 07:36 | ECGEPIP ---
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
[2020-11-24] MEDS: SINEMET 25-100 MG TAB PO SCH ×5 (08:00→18:34)
[2020-11-24] MEDS: NS 1,000 ML IV SCH ×2 (08:45→16:46)
[2020-11-24] MEDS: TAMSULOSIN 0.4 MG CAP PO SCH (09:00)
[2020-11-24] MEDS: VENLAFAXINE 25 MG TAB PO SCH ×2 (09:00→21:00)
[2020-11-24] MEDS: ENOXAPARIN 40MG/0.4ML SYRINGE (J1650 PER 10MG) SC SCH (09:00)
[2020-11-24 14:00] VITALS: BP 121/78
--- NOTE | 2020-11-24 15:39 | IPNPDOC ---
Text Note Date of Service The patient was seen on 11/24/20. NOTE Subjective: Patient developed emotional flat affect, rejected daytime pills. 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 Patient is a poor historian, he stated that he lives alone and he cannot take care about himself. He was noncompliant to Parkinson treatment. In ER patient was found to have hemoglobin 12, normal lactic acid, CPK 920, normal troponin. UA shows pyuria. Chest x-ray showed no acute cardiopulmonary process. Problems (1) Parkinson disease Patient was not compliant with his treatment for Parkinson's diseases. There is concern for Lewy body dementia or Parkinson dementia Restarted home meds (2) UTI (urinary tract infection) Ceftriaxone IV Patient has pyuria and altered mental status (3) Failure to thrive in adult PT/OT Most likely patient will need placement VS,Fishbone, I+O VS, Fishbone, I+O Laboratory Tests 11/24/20 05:58 Vital Signs Date Time Temp Pulse Resp B/P (MAP) Pulse Ox O2 Delivery O2 Flow Rate FiO2 11/24/20 14:00 98.6 73 18 121/78 (92) 97 Room Air I&O- Last 24 Hours up to 6 AM 11/24/20 06:00 Intake Total 1100 ml Output Total 0 ml Balance 1100 ml JUAN M TAYLOR DO Nov 24, 2020 15:39
[2020-11-24 17:03] LABS: CPK CREATINE PHOSPHOKINASE 943 U/L (39-308)
[2020-11-24] MEDS: QUEtiapine FUMARATE 25 MG TAB PO SCH (21:00)
[2020-11-24] MEDS: SINEMET**CR** 25/100 TABCR PO SCH (21:00)
[2020-11-24 22:00] VITALS: BP 98/61
[2020-11-25] MEDS: cefTRIAXone SOD 2 GM in D5W MINI-BAG PLUS 50 ML IV SCH (02:00)
[2020-11-25] MEDS: NS 1,000 ML IV SCH ×2 (04:39→08:51)
[2020-11-25 06:00] VITALS: BP 129/72
[2020-11-25] MEDS: SINEMET 25-100 MG TAB PO SCH ×4 (08:00→18:07)
[2020-11-25] MEDS: VENLAFAXINE 25 MG TAB PO SCH ×2 (08:50→21:15)
[2020-11-25] MEDS: TAMSULOSIN 0.4 MG CAP PO SCH (08:51)
[2020-11-25] MEDS: ENOXAPARIN 40MG/0.4ML SYRINGE (J1650 PER 10MG) SC SCH (08:51)
--- NOTE | 2020-11-25 12:36 | IPNPDOC ---
Text Note Date of Service The patient was seen on 11/25/20. NOTE Subjective: Patient continues to reject daytime pills, but was able to eat. 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 Patient is a poor historian, he stated that he lives alone and he cannot take care about himself. He was noncompliant to Parkinson treatment. In ER patient was found to have hemoglobin 12, normal lactic acid, CPK 920, normal troponin. UA shows pyuria. Chest x-ray showed no acute cardiopulmonary process. Problems (1) Parkinson disease Patient was not compliant with his treatment for Parkinson's diseases. There is concern for Lewy body dementia or Parkinson dementia Continue home meds (2) UTI (urinary tract infection) Ceftriaxone IV Patient has pyuria and altered mental status (3) Failure to thrive in adult PT/OT Most likely patient will need placement MDD Patient noncompliant to his medications Appreciate/agree with psych consult VS,Venus, I+O VS, Venus, I+O Vital Signs Date Time Temp Pulse Resp B/P (MAP) Pulse Ox O2 Delivery O2 Flow Rate FiO2 11/25/20 06:00 98.0 69 18 129/72 (91) 97 Room Air I&O- Last 24 Hours up to 6 AM 11/25/20 06:00 Intake Total 200 ml Output Total 0 ml Balance 200 ml JUAN M TAYLOR DO Nov 25, 2020 12:36
[2020-11-25 14:00] VITALS: BP 103/64
[2020-11-25] MEDS: QUEtiapine FUMARATE 25 MG TAB PO SCH (21:00)
[2020-11-25] MEDS: SINEMET**CR** 25/100 TABCR PO SCH (21:15)
[2020-11-26] MEDS: NS 1,000 ML IV SCH ×3 (00:45→21:00)
[2020-11-26] MEDS: cefTRIAXone SOD 2 GM in D5W MINI-BAG PLUS 50 ML IV SCH (01:30)
[2020-11-26 06:00] VITALS: BP 129/76
[2020-11-26 07:11] LABS: BASO % 0.8 % (0.0-1.0); EOS # 0.4 10^3/uL (0.0-0.5); EOS % 8.4 % (0.0-3.0); HEMATOCRIT 35.7 % (42.0-52.0); HEMOGLOBIN 11.7 g/dl (13.5-17.5); LYMPH # 1.6 10^3/uL (1.5-5.0); LYMPH % 29.7 % (24.0-44.0); MEAN CORPUSCULAR HEMOGLOBIN 31.7 pg (27.0-33.0); MEAN CORPUSCULAR HGB CONC 32.8 g/dl (32.0-36.5); MEAN CORPUSCULAR VOLUME 96.7 fl (80.0-96.0); MONO # 0.5 10^3/uL (0.0-0.8); MONO % 8.9 % (0.0-5.0); NEUTROPHILS # 2.7 10^3/uL (1.5-8.5); NEUTROPHILS % 51.6 % (36.0-66.0); PLATELET COUNT, AUTOMATED 162 10^3/uL (150-450); RED BLOOD COUNT 3.69 10^6/uL (4.30-6.10); WHITE BLOOD COUNT 5.3 10^3/uL (4.0-10.0)
[2020-11-26 07:47] LABS: ALT/SGPT 13 U/L (12-78); BILIRUBIN,TOTAL 0.5 MG/DL (0.2-1.0); BLOOD UREA NITROGEN 18 MG/DL (7-18); CALCIUM LEVEL 8.6 MG/DL (8.8-10.2); CARBON DIOXIDE LEVEL 30 MEQ/L (21-32); CHLORIDE LEVEL 110 MEQ/L (98-107); CREATININE FOR GFR 0.92 MG/DL (0.70-1.30); GLOMERULAR FILTRATION RATE > 60.0 (>49); GLUCOSE, FASTING 100 MG/DL (70-100); MAGNESIUM LEVEL 1.9 MG/DL (1.8-2.4); POTASSIUM SERUM 3.9 MEQ/L (3.5-5.1); SODIUM LEVEL 144 MEQ/L (136-145); TOTAL PROTEIN 5.8 GM/DL (6.4-8.2)
[2020-11-26] MEDS: TAMSULOSIN 0.4 MG CAP PO SCH (08:39)
[2020-11-26] MEDS: SINEMET 25-100 MG TAB PO SCH ×4 (08:39→18:27)
[2020-11-26] MEDS: VENLAFAXINE 25 MG TAB PO SCH ×2 (08:39→21:00)
[2020-11-26] MEDS: ENOXAPARIN 40MG/0.4ML SYRINGE (J1650 PER 10MG) SC SCH (08:39)
--- NOTE | 2020-11-26 12:34 | IPNPDOC ---
Text Note Date of Service The patient was seen on 11/26/20. NOTE Subjective: Patient stated that he is not interested in treatment. 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 Patient is a poor historian, he stated that he lives alone and he cannot take care about himself. He was noncompliant to Parkinson treatment. In ER patient was found to have hemoglobin 12, normal lactic acid, CPK 920, normal troponin. UA shows pyuria. Chest x-ray showed no acute cardiopulmonary process. Problems (1) Parkinson disease Patient was not compliant with his treatment for Parkinson's diseases. There is concern for Lewy body dementia or Parkinson dementia Continue home meds (2) UTI (urinary tract infection) Ceftriaxone IV Patient has pyuria and altered mental status (3) Failure to thrive in adult PT/OT Most likely patient will need placement MDD Patient noncompliant to his medications Await psych recommendations VS,Fishbone, I+O VS, Fishbone, I+O Laboratory Tests 11/26/20 06:44 Vital Signs Date Time Temp Pulse Resp B/P (MAP) Pulse Ox O2 Delivery O2 Flow Rate FiO2 11/26/20 06:00 98.8 63 18 129/76 (93) 95 Room Air I&O- Last 24 Hours up to 6 AM 11/26/20 06:00 Intake Total 1850 ml Output Total 0 ml Balance 1850 ml JUAN M TAYLOR DO Nov 26, 2020 12:34
--- NOTE | 2020-11-26 14:39 | MHCR ---
PSYCHIATRIC CONSULTATION DATE: 11/25/2020 HISTORY OF PRESENT ILLNESS: This is a 65-year-old man with Parkinson's, possibly some dementia, either due to Parkinson's or Lewy Body, who was admitted with generalized weakness and had stopped his medications both for his Parkinson's and for his depression. He was admitted to the hospital for failure to thrive and also was found to have a urinary tract infection that he is being treated for. I was asked to see this patient for me to make recommendations about adjusting his medications, because the patient has been refusing all of his medications and they feel it might be due to an underlying depression. Of note is that this patient, when I saw him today, was not very forthcoming. His answers to my questions as to why he was not taking his medications were very vague answers, such as "What choices do I have?" This was after I told him that he did have choices to take his medications. I asked him if he was feeling depressed and he would not give me a straight answer. I asked him if he felt that he needed to be placed in maybe a correction and again, no straight answer, and when I specifically asked him to tell me yes or know answer, he would answer me yes or no. Basically, this patient is not very reliable at all. Of note is that I did review records from two prior psychiatric hospitalizations at [facility] inpatient mental health unit last year and they basically describe him as being the same. He refused to take any medications for depression when he was in the psychiatric unit and I believe he was discharged only on some Effexor XR finally at the time of discharge. At one point in one of the hospitalizations, they thought maybe he was psychotic, but they determined afterwards that he was not psychotic at all and they did not even discharge him on Seroquel. It seems that now he is on Seroquel 25 mg at bedtime and Effexor XR 12.5 mg twice a day, but of course, he is refusing to take it. It seems that the patient has no problems of any psychiatric history before those couple of admissions to [facility] inpatient mental health unit last year. PAST PSYCHIATRIC HISTORY: I am not able to obtain from this patient. I did obtain some history, but that was from his prior admission two years ago. FAMILY HISTORY: Unable to obtain. MEDICAL HISTORY: This is as noted above. SUBSTANCE ABUSE HISTORY: The records from last year from the psychiatric unit admissions did not indicate that he had any history of substance abuse. MENTAL STATUS EXAMINATION: I am really not able to do a full mental status exam because the patient basically does not engage in any of my questions. DIAGNOSES: 1. Rule out unspecified depressive disorder. 2. History of dementia. RECOMMENDATIONS: At this point, I have only one recommendation, which is to continue to encourage the patient to take medications. Even if the patient's underlying problem is depression, if he is not willing to take medications, there is not really much that can be done. It does sound like this patient has significant cognitive impairment and he is going to need some placement, maybe in a correction. LING
[2020-11-26] MEDS: SINEMET**CR** 25/100 TABCR PO SCH (21:00)
[2020-11-26] MEDS: QUEtiapine FUMARATE 25 MG TAB PO SCH (21:00)
[2020-11-26 22:00] VITALS: BP 110/71
[2020-11-27] MEDS: cefTRIAXone SOD 2 GM in D5W MINI-BAG PLUS 50 ML IV SCH (02:00)
[2020-11-27 06:22] VITALS: BP 109/71
[2020-11-27 06:45] LABS: BASO % 0.8 % (0.0-1.0); EOS # 0.5 10^3/uL (0.0-0.5); EOS % 9.8 % (0.0-3.0); HEMATOCRIT 34.2 % (42.0-52.0); LYMPH # 1.5 10^3/uL (1.5-5.0); LYMPH % 30.9 % (24.0-44.0); MEAN CORPUSCULAR HEMOGLOBIN 31.4 pg (27.0-33.0); MEAN CORPUSCULAR HGB CONC 32.2 g/dl (32.0-36.5); MEAN CORPUSCULAR VOLUME 97.7 fl (80.0-96.0); MONO # 0.5 10^3/uL (0.0-0.8); NEUTROPHILS # 2.4 10^3/uL (1.5-8.5); NEUTROPHILS % 48.9 % (36.0-66.0); PLATELET COUNT, AUTOMATED 162 10^3/uL (150-450)
[2020-11-27] MEDS: NS 1,000 ML IV SCH ×2 (06:45→08:00)
[2020-11-27 07:16] LABS: ALT/SGPT 18 U/L (12-78); BILIRUBIN,TOTAL 0.3 MG/DL (0.2-1.0); BLOOD UREA NITROGEN 18 MG/DL (7-18); CALCIUM LEVEL 8.3 MG/DL (8.8-10.2); CARBON DIOXIDE LEVEL 31 MEQ/L (21-32); CHLORIDE LEVEL 109 MEQ/L (98-107); CREATININE FOR GFR 0.89 MG/DL (0.70-1.30); GLOMERULAR FILTRATION RATE > 60.0 (>49); GLUCOSE, FASTING 100 MG/DL (70-100); SODIUM LEVEL 144 MEQ/L (136-145); TOTAL PROTEIN 5.8 GM/DL (6.4-8.2)
[2020-11-27] MEDS: ENOXAPARIN 40MG/0.4ML SYRINGE (J1650 PER 10MG) SC SCH (08:18)
[2020-11-27] MEDS: VENLAFAXINE 25 MG TAB PO SCH ×2 (08:20→22:00)
[2020-11-27] MEDS: TAMSULOSIN 0.4 MG CAP PO SCH (08:20)
[2020-11-27] MEDS: SINEMET 25-100 MG TAB PO SCH ×4 (08:20→19:00)
[2020-11-27] MEDS: QUEtiapine FUMARATE 25 MG TAB PO SCH (22:00)
[2020-11-27] MEDS: SINEMET**CR** 25/100 TABCR PO SCH (22:00)
[2020-11-28] MEDS: NS 1,000 ML IV SCH ×3 (01:10→22:05)
[2020-11-28] MEDS: SINEMET 25-100 MG TAB PO SCH ×4 (08:00→17:41)
[2020-11-28] MEDS: ENOXAPARIN 40MG/0.4ML SYRINGE (J1650 PER 10MG) SC SCH (09:00)
[2020-11-28] MEDS: TAMSULOSIN 0.4 MG CAP PO SCH (13:13)
[2020-11-28] MEDS: VENLAFAXINE 25 MG TAB PO SCH ×2 (13:13→21:00)
[2020-11-28] MEDS: QUEtiapine FUMARATE 25 MG TAB PO SCH (21:00)
[2020-11-28] MEDS: SINEMET**CR** 25/100 TABCR PO SCH (21:00)
[2020-11-29 06:00] VITALS: BP 124/78
[2020-11-29] MEDS: NS 1,000 ML IV SCH ×2 (08:45→16:15)
[2020-11-29] MEDS: ENOXAPARIN 40MG/0.4ML SYRINGE (J1650 PER 10MG) SC SCH (09:00)
[2020-11-29] MEDS: SINEMET 25-100 MG TAB PO SCH ×4 (09:12→18:16)
[2020-11-29] MEDS: TAMSULOSIN 0.4 MG CAP PO SCH (09:12)
[2020-11-29] MEDS: VENLAFAXINE 25 MG TAB PO SCH ×2 (09:12→20:59)
[2020-11-29] MEDS: SINEMET**CR** 25/100 TABCR PO SCH (20:59)
[2020-11-29] MEDS: QUEtiapine FUMARATE 25 MG TAB PO SCH (20:59)
[2020-11-30] MEDS: NS 1,000 ML IV SCH ×2 (04:45→11:18)
[2020-11-30 06:00] VITALS: BP 119/74
[2020-11-30] MEDS: SINEMET 25-100 MG TAB PO SCH ×4 (08:00→18:01)
[2020-11-30] MEDS: VENLAFAXINE 25 MG TAB PO SCH ×2 (09:00→21:00)
[2020-11-30] MEDS: TAMSULOSIN 0.4 MG CAP PO SCH (09:00)
[2020-11-30] MEDS: ENOXAPARIN 40MG/0.4ML SYRINGE (J1650 PER 10MG) SC SCH (09:00)
[2020-11-30] MEDS: QUEtiapine FUMARATE 25 MG TAB PO SCH (21:00)
[2020-11-30] MEDS: SINEMET**CR** 25/100 TABCR PO SCH (21:00)
[2020-12-01] MEDS: NS 1,000 ML IV SCH (00:45)
[2020-12-01 06:00] VITALS: BP 120/78
[2020-12-01] MEDS: SINEMET 25-100 MG TAB PO SCH ×4 (08:00→19:00)
[2020-12-01] MEDS: TAMSULOSIN 0.4 MG CAP PO SCH (08:38)
[2020-12-01] MEDS: ENOXAPARIN 40MG/0.4ML SYRINGE (J1650 PER 10MG) SC SCH (08:38)
[2020-12-01] MEDS: VENLAFAXINE 25 MG TAB PO SCH ×2 (08:38→22:03)
[2020-12-01] MEDS: SINEMET**CR** 25/100 TABCR PO SCH (22:04)
[2020-12-01] MEDS: QUEtiapine FUMARATE 25 MG TAB PO SCH (22:04)
[2020-12-02 06:00] VITALS: BP 141/92
[2020-12-02] MEDS: SINEMET 25-100 MG TAB PO SCH ×4 (08:00→19:00)
[2020-12-02] MEDS: ENOXAPARIN 40MG/0.4ML SYRINGE (J1650 PER 10MG) SC SCH (08:06)
[2020-12-02] MEDS: TAMSULOSIN 0.4 MG CAP PO SCH (08:06)
[2020-12-02] MEDS: VENLAFAXINE 25 MG TAB PO SCH ×2 (08:06→21:00)
[2020-12-02] MEDS: SINEMET**CR** 25/100 TABCR PO SCH (21:00)
[2020-12-02] MEDS: QUEtiapine FUMARATE 25 MG TAB PO SCH (21:00)
[2020-12-03 06:00] VITALS: BP 116/67
[2020-12-03] MEDS: SINEMET 25-100 MG TAB PO SCH ×4 (08:00→17:37)
[2020-12-03] MEDS: ENOXAPARIN 40MG/0.4ML SYRINGE (J1650 PER 10MG) SC SCH (09:00)
[2020-12-03] MEDS: TAMSULOSIN 0.4 MG CAP PO SCH (09:00)
[2020-12-03] MEDS: VENLAFAXINE 25 MG TAB PO SCH ×2 (09:00→21:00)
[2020-12-03] MEDS: QUEtiapine FUMARATE 25 MG TAB PO SCH (21:00)
[2020-12-03] MEDS: SINEMET**CR** 25/100 TABCR PO SCH (21:00)
[2020-12-04 06:00] VITALS: BP 127/78
[2020-12-04] MEDS: VENLAFAXINE 25 MG TAB PO SCH ×2 (07:56→20:58)
[2020-12-04] MEDS: TAMSULOSIN 0.4 MG CAP PO SCH (07:56)
[2020-12-04] MEDS: ENOXAPARIN 40MG/0.4ML SYRINGE (J1650 PER 10MG) SC SCH (07:56)
[2020-12-04] MEDS: SINEMET 25-100 MG TAB PO SCH ×4 (07:56→18:39)
--- NOTE | 2020-12-04 13:03 | IPNPDOC ---
Text Note Date of Service The patient was seen on 12/04/20. NOTE Subjective: Patient refused to take his medications. 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 Patient is a poor historian, he stated that he lives alone and he cannot take care about himself. He was noncompliant to Parkinson treatment. In ER patient was found to have hemoglobin 12, normal lactic acid, CPK 920, normal troponin. UA shows pyuria. Chest x-ray showed no acute cardiopulmonary process. Problems (1) Parkinson disease Patient was not compliant with his treatment for Parkinson's diseases. There is concern for Lewy body dementia or Parkinson dementia Continue home meds (2) UTI (urinary tract infection) Completed course of Ceftriaxone IV Patient had pyuria and altered mental status on admission (3) Failure to thrive in adult PT/OT Await placement MDD Patient noncompliant to his medications Psych team evaluated him, gave recommendations, however patient refused to take medications VS,Fishbone, I+O VS, Fishbone, I+O Vital Signs Date Time Temp Pulse Resp B/P (MAP) Pulse Ox O2 Delivery O2 Flow Rate FiO2 12/04/20 06:00 97.5 62 18 127/78 (94) 100 Room Air I&O- Last 24 Hours up to 6 AM 12/04/20 06:00 Intake Total 720 ml Balance 720 ml JUAN M TAYLOR DO Dec 04, 2020 13:03
[2020-12-04] MEDS: SINEMET**CR** 25/100 TABCR PO SCH (20:58)
[2020-12-04] MEDS: QUEtiapine FUMARATE 25 MG TAB PO SCH (20:58)
[2020-12-05 06:00] VITALS: BP 126/77
[2020-12-05] MEDS: SINEMET 25-100 MG TAB PO SCH ×4 (08:00→18:23)
[2020-12-05] MEDS: ENOXAPARIN 40MG/0.4ML SYRINGE (J1650 PER 10MG) SC SCH (09:00)
[2020-12-05] MEDS: TAMSULOSIN 0.4 MG CAP PO SCH (14:33)
[2020-12-05] MEDS: VENLAFAXINE 25 MG TAB PO SCH ×2 (14:33→21:00)
[2020-12-05] MEDS: SINEMET**CR** 25/100 TABCR PO SCH (21:00)
[2020-12-05] MEDS: QUEtiapine FUMARATE 25 MG TAB PO SCH (21:00)
[2020-12-06 06:00] VITALS: BP 104/68
[2020-12-06] MEDS: SINEMET 25-100 MG TAB PO SCH ×4 (08:00→17:56)
[2020-12-06] MEDS: TAMSULOSIN 0.4 MG CAP PO SCH (09:00)
[2020-12-06] MEDS: ENOXAPARIN 40MG/0.4ML SYRINGE (J1650 PER 10MG) SC SCH (09:00)
[2020-12-06] MEDS: VENLAFAXINE 25 MG TAB PO SCH ×2 (09:00→21:00)
[2020-12-06] MEDS: SINEMET**CR** 25/100 TABCR PO SCH (21:00)
[2020-12-06] MEDS: QUEtiapine FUMARATE 25 MG TAB PO SCH (21:00)
[2020-12-07 06:14] VITALS: BP 128/74
[2020-12-07] MEDS: VENLAFAXINE 25 MG TAB PO SCH (07:42)
[2020-12-07] MEDS: SINEMET 25-100 MG TAB PO SCH ×2 (07:42→11:00)
[2020-12-07] MEDS: ENOXAPARIN 40MG/0.4ML SYRINGE (J1650 PER 10MG) SC SCH (07:42)
[2020-12-07] MEDS: TAMSULOSIN 0.4 MG CAP PO SCH (07:42)
--- NOTE | 2020-12-07 10:32 | DS.PDOC ---
Discharge Summary General Date of Admission Nov 23, 2020 at 15:18 Date of Discharge 12/07/20 Discharge Summary PROCEDURES PERFORMED DURING STAY: [None]. ADMITTING DIAGNOSES: Parkinson disease UTI (urinary tract infection) Failure to thrive in adult MDD DISCHARGE DIAGNOSES: Parkinson disease UTI (urinary tract infection) Failure to thrive in adult MDD COMPLICATIONS/CHIEF COMPLAINT: Parkinson Disease. 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 Patient is a poor historian, he stated that he lives alone and he cannot take care about himself. He was n oncompliant to Parkinson treatment. In ER patient was found to have hemoglobin 12, normal lactic acid, CPK 920, normal troponin. UA shows pyuria. Chest x-ray showed no acute cardiopulmonary process. HOSPITAL COURSE: During the hospital stay the following issue addressed (1) Parkinson disease Patient was not compliant with his treatment for Parkinson's diseases. There is concern for Lewy body dementia or Parkinson dementia Continue home meds (2) UTI (urinary tract infection) Completed course of Ceftriaxone IV Patient had pyuria and altered mental status on admission (3) Failure to thrive in adult PT/OT Await placement MDD Patient noncompliant to his medications Psych team evaluated him, gave recommendations, however patient refused to take medications DISCHARGE MEDICATIONS: Please see below. ALLERGIES: Please see below. PHYSICAL EXAMINATION ON DISCHARGE: VITAL SIGNS: Please see below. GENERAL APPEARANCE: Emotional flat affect HEENT: no scleral icterus, no JVD, EOMI CARDIOVASCULAR: S1S2 LUNGS: Diminished lung sounds bilaterally ABDOMEN: soft & not tender w palpitation MUSCULOSKELETAL: no cyanosis, no swelling INTEGUMENT: no generalized pallor NEUROLOGICAL: cranial nerve function from 2-12 intact intact, follows commands, speech not dysarthric PROGNOSIS: Fair ACTIVITY: [As tolerated]. DIET: Regular DISPOSITION: snf DISCHARGE INSTRUCTIONS: Follow-up with PCP and psychiatrist DISCHARGE CONDITION: [Stable]. TIME SPENT ON DISCHARGE: 40 minutes. Vital Signs/I&Os Vital Signs Date Time Temp Pulse Resp B/P (MAP) Pulse Ox O2 Delivery O2 Flow Rate FiO2 12/07/20 06:14 97.5 66 18 128/74 (92) 96 Room Air I&O- Last 24 Hours up to 6 AM 12/07/20 06:00 Intake Total 650 ml Output Total 0 ml Balance 650 ml Laboratory Data Labs 24H Laboratory Tests 2 12/07/20 09:06: Coronavirus (COVID-19)(PCR) NEGATIVE Discharge Medications Scheduled Carbidopa/Levodopa (Carbidopa-Levodopa 25-100 Tab) 1 Each Tablet, 1 TAB PO QID, (Reported) 0800, 1100, 1500, 1900 Carbidopa/Levodopa (Carbidopa-Levo ER 25-100 Tab) 1 Each Tablet.er, 2 TAB PO QHS, (Reported) Mirtazapine (Remeron) 15 Mg Tablet, 15 MG PO QHS, (Reported) Quetiapine Fumarate (Quetiapine Fumarate) 25 Mg Tablet, 25 MG PO QHS, (Reported) Tamsulosin HCl (Flomax) 0.4 Mg Capsule, 0.4 MG PO DAILY, (Reported) Venlafaxine HCl (Venlafaxine HCl) 25 Mg Tablet, 12.5 MG PO BID, (Reported) Miscellaneous Medications [Patient Comment] UB , (Reported) UNABLE TO VERIFY MEDICATIONS WITH PATIENT OR FAMILY. MED LIST OBTAINED FROM [facility] WITH LAST FILL DATES OF FEBRUARY 2020, UNSURE IF PATIENT TAKING THESE MEDICATIONS Allergies Coded Allergies: latex (Verified Allergy, Intermediate, swelling, 05/01/20) peanut (Verified Allergy, Intermediate, allergy testing, 05/01/20) hydrocortisone (Verified Allergy, Mild, redness, 05/01/20) JUAN M TAYLOR DO Dec 07, 2020 10:32
== END 2020-12-07 12:30 | DRG 42 ==
LOC: EDBD 11:31 → M ED 11:31 → M ED INP 15:18 → M MS5PR 17:30
PROVIDERS: ADMIT Internal Medicine; ATTEND Internal Medicine
DX: G20 Parkinson's disease (principal); N39.0 Urinary tract infection, site not specified; F02.80 Dementia in other diseases classified elsewhere, unspecified severity, without behavioral disturbance, psychotic disturbance, mood disturbance, and anxiety; F32.9 Major depressive disorder, single episode, unspecified; R62.7 Adult failure to thrive; Z79.899 Other long term (current) drug therapy; Z91.040 Latex allergy status; Z88.5 Allergy status to narcotic agent; Z91.010 Allergy to peanuts; E78.5 Hyperlipidemia, unspecified; Z91.19 Patient's noncompliance with other medical treatment and regimen